=== PATIENT | female | born 1955 | race Caucasian/White ===

== ENCOUNTER 2019-06-15 15:51 | Emergency (ER) | payer OTHER ==
--- OUTSIDE RECORDS SUMMARY | 2019-06-15 15:53 | XMS REPORT ---
:1955 [facility] Address [address] [place] [address] Dr. Casanova. [address] [place] [id number] Care Team Providers Name Role Phone Unavailable Unavailable Unavailable Problems This patient has no known problems. Allergies, Adverse Reactions, Alerts This patient has no known allergies or adverse reactions. Medications This patient has no known medications.
[2019-06-15] MEDS ORDERED: ACETAMINOPHEN 500 MG TAB ONE (16:25)
[2019-06-15 16:37] LABS: Protime INR 0.96
[2019-06-15 16:40] LABS: Absolute Lymphocytes (CBC) 0.8 K/uL (0.7-4.9); Basophils % 0.2 % (0-1.3); Hematocrit 38.1 % (36.0-45.0); Lymphocytes % 8.4 % (15.3-44.8); MPV 7.5 fL (7.6-11.3); RBC Red Blood Cell Count 3.93 M/uL (3.86-4.86)
[2019-06-15 16:49] LABS: ALT/SGPT 22 U/L (12-78); AST/SGOT 16 U/L (15-37); Albumin 3.2 g/dL (3.4-5.0); Alkaline Phosphatase 72 U/L (45-117); BUN Blood Urea Nitrogen 33 mg/dL (7-18); Bicarbonate 27 mmol/L (21-32); Bilirubin Direct < 0.1 mg/dL (0-0.2); Bilirubin Total 0.3 mg/dL (0.2-1.0); Glucose Level 95 mg/dL (74-106); Magnesium 1.8 mg/dL (1.8-2.4); NT PRO-BNP 1121 pg/mL (<125); Potassium 4.4 mmol/L (3.5-5.1); Protein, Total 6.2 g/dL (6.4-8.2); Sodium Level 138 mmol/L (136-145); Troponin (Emerg Dept Use Only) < 0.02 ng/mL (0.0-0.045)
--- NOTE | 2019-06-15 16:55 | RAD REPORT ---
EXAM DESCRIPTION: RAD - Chest Single View - 06/15/2019 4:46 pm CLINICAL HISTORY: Shortness of breath COMPARISON: April 30 TECHNIQUE: AP portable chest image was obtained 1631 hours . FINDINGS: Lungs are clear. Heart and vasculature are normal. No pneumothorax seen. New pleural effus ion suspected. Patient has left-sided pericardial fat pad. Left costophrenic angle blunting is simila r to the comparison. Pleural effusion is doubtful. This can be monitored on follow-up imaging with CT chest imaging if the patient remains symptomatic. No acute bony abnormality seen. No acute aortic fi ndings suspected. IMPRESSION: Shallow inspiration film without acute cardiopulmonary finding. Left costophrenic angle blunting is favored to be pericardial fat.
--- NOTE | 2019-06-15 18:12 | RAD REPORT ---
EXAM DESCRIPTION: CT - Head Brain Wo Cont - 06/15/2019 5:47 pm CLINICAL HISTORY: Dizziness, syncope COMPARISON: None. TECHNIQUE: Axial 5 mm thick images of the head were obtained without IV contrast. All CT scans are performed using dose optimization technique as appropriate and may include automated exposure control or mA/KV adjustment according to patient size. FINDINGS: No intracranial hemorrhage, mass, edema or shift of mid-line structures. No acute infarcti on changes seen. No abnormal extra-axial fluid collections. Ventricles are normal. No significant atr ophy. Chronic ischemic changes are minimal. Mastoid air cells and visualized portions of the paranasal sinuses are clear. No acute bony findings. IMPRESSION: No significant atrophy. Minimal chronic ischemic change. No acute intracranial finding seen.
[2019-06-15] MEDS ORDERED: NA CHLORIDE 0.9% 1,000 ML ONE (18:14)
--- NOTE | 2019-06-15 18:22 | RAD REPORT ---
EXAM DESCRIPTION: CT - Chest For Pe Angio - 06/15/2019 5:55 pm CLINICAL HISTORY: Cough;Dyspnea COMPARISON: Chest Single View dated 06/15/2019 TECHNIQUE: Dynamically enhanced 3 mm thick images of the chest were obtained during administration o f approximately 150mL Isovue 370 IV contrast. Coronal and oblique MIP reconstruction images were gene rated and reviewed. Exam utilizes a protocol to evaluate the pulmonary arterial tree. All CT scans are performed using dose optimization technique as appropriate and may include automated exposure control or mA/KV adjustment according to patient size. FINDINGS: No pulmonary emboli are identified. The aorta as imaged shows no acute or suspicious finding. No pericardial thickening or effusion. A 4- 5 centimeter masslike consolidation is present in the medial posterior left lung base. This exte nds to the hilum. There is bronchial obstruction or occlusion and no air bronchograms seen. No pleura l effusion or pleural thickening. No mediastinal mass or lymphadenopathy. Contralateral right hilum is unremarkable. No chest wall mass es or abnormal axillary lymphadenopathy. IMPRESSION: No pulmonary emboli identified. Masslike consolidation in the medial posterior left lung base may be pneumonia with volume loss. Costa johny, malignant mass is not excluded. Correlation is needed with any pneumonia clinical or exam findings. Continued close follow-up is need ed to assure complete clearing. This area is difficult to follow on plain film. A repeat CT chest exa mination in 4 - 6 weeks recommended after medical management.
--- NOTE | 2019-06-15 19:46 | ER ---
Nurse's Notes [facility] Name: Nia Ortiz Age: 64 yrs Sex: Female : 1955 Arrival Date: 06/15/2019 Time: 15:54 Bed 4 Private MD: Diagnosis: Dizziness and giddiness;Headache Presentation: 06/15 15:55 Presenting complaint: Patient states: dizziness and SOB. Pt states "I have a growth in aa5 my lungs and I have Pneumonia around it and I am supposed to take antibiotics for 48 days and I am on my last week of antibiotics and steroids". Pt reports headache and chest pain. Transition of care: patient was not received from another setting of care. Onset of symptoms was June 15, 2019. Risk Assessment: Do you want to hurt yourself or someone else? Patient reports no desire to harm self or others. Care prior to arrival: None. 15:55 Acuity: ENIO 3 aa5 15:55 Method Of Arrival: Wheelchair aa 15:57 Initial Sepsis Screen: Does the patient meet any 2 criteria? No. Patient's initial aa5 sepsis screen is negative. Does the patient have a suspected source of infection? No. Patient's initial sepsis screen is negative. 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 - Social history:: Smoking status: Patient/guardian denies using tobacco. - Ebola Screening: : No symptoms or risks identified at this time. Screenin:10 Abuse screen: Denies threats or abuse. Denies injuries from another. Nutritional sg screening: No deficits noted. Tuberculosis screening: No symptoms or risk factors identified. Never had TB. Fall Risk None identified. Assessment: 16:00 General: Appears in no apparent distress. well groomed, well developed, well nourished, sg Behavior is calm, cooperative, appropriate for age. Pain: Denies pain. Neuro: Level of Consciousness is awake, alert, obeys commands, Oriented to person, place, time, situation. Neuro: Reports dizziness, that has resolved today. Cardiovascular: Heart tones S1 S2 present Capillary refill is brisk in bilateral fingers Patient's skin is warm and dry. Chest pain is denied. Respiratory: Reports shortness of breath at rest on exertion Airway is patent Respiratory effort is even, unlabored. GI: Abdomen is round non-distended. : No signs and/or symptoms were reported regarding the genitourinary system. EENT: No signs and/or symptoms were reported regarding the EENT system. Derm: Skin is pink, warm \\T\\ dry. Musculoskeletal: Circulation, motion, and sensation intact. Range of motion: intact in all extremities. 16:31 Reassessment: Patient appears in no apparent distress at this time. Patient and/or sg family updated on plan of care and expected duration. Pain level reassessed. 19:45 General: Appears in no apparent distress. Behavior is calm, cooperative, appropriate lp1 for age. Pain: Denies pain. Neuro: Level of Consciousness is awake, alert, obeys commands, Oriented to person, place, time, situation, Operations Analyst are equal bilaterally Moves all extremities. Full function Pupils are PERRLA, Reports dizziness, when standing. Cardiovascular: Patient's skin is warm and dry. Rhythm is sinus bradycardia. Respiratory: Reports shortness of breath on exertion Respiratory effort is even, unlabored, Breath sounds are clear bilaterally. Onset: The symptoms/episode began/occurred yesterday, the patient has mild shortness of breath. : urostomy in place. Derm: Skin is pink, warm \\T\\ dry. Derm: Skin is pink, warm \\T\\ dry. 20:45 Reassessment: Patient appears in no apparent distress at this time. Patient is alert, lp1 oriented x 3, equal unlabored respirations, skin warm/dry/pink. Patient and aware of pending transfer. 21:11 Reassessment: Report given to MEGHAN Raya at [facility] for patient transfer to Bed lp1 1035. 21:56 Reassessment: [facility] at bedside for transfer. lp1 22:01 Reassessment: Patient appears in no apparent distress at this time. Patient states lp1 relief of dizziness Patient denies pain at this time. Patient states feeling better. Patient states symptoms have improved. Vital Signs: 15:57 BP 163 / 74; Pulse 71; Resp 20 S; Temp 98.4(O); Pulse Ox 94% on R/A; Weight 83.01 kg aa5 (R); Height 5 ft. 6 in. (167.64 cm) (R); 19:45 BP 129 / 69; Pulse 54; Resp 17; Pulse Ox 94% on R/A; Pain 0/10; lp1 20:30 BP 134 / 68; Pulse 54; Resp 18; Pulse Ox 95% on R/A; Pain 0/10; lp1 21:45 BP 142 / 72; Pulse 53; Resp 17; Pulse Ox 95% on R/A; Pain 0/10; lp1 15:57 Body Mass Index 29.54 (83.01 kg, 167.64 cm) aa5 NIH Stroke Scale Scores: 19:39 NIHSS Score: 0 [facility] ED Course: 15:54 Patient arrived in ED. aa5 15:54 Arm band placed on. aa5 15:56 Triage completed. aa5 16:00 Initial lab(s) drawn, by va, sent to lab. Inserted saline lock: 22 gauge in right sg antecubital area, using aseptic technique. Blood collected. 16:02 Nate Wilkins, MEGHAN is Primary Nurse. 16:02 Meek Christensen MD is Attending Physician. [facility] 16:08 EKG done, by ED staff, reviewed by Meek Christensen MD. aa5 16:13 Radiology exam delayed due to lab results not completed at this time. (BUN/Creatinine) nj IV insertion attempt and/or patient not having appropriate IV at this time. 17:55 IV discontinued, intact, No redness/swelling at site. IV reported to be infiltrated in sg CT at this time, will establish new access. 18:00 Inserted saline lock: 22 gauge in right antecubital area, using aseptic technique. 19:23 Attending Physician role handed off by Meek Christensen MD [facility] 19:23 Larry Pickett MD is Attending Physician. siena 19:45 Patient has correct armband on for positive identification. Placed in gown. Bed in low lp1 position. cafeteria monitor on. Pulse ox on. NIBP on. 21:06 No provider procedures requiring assistance completed. lp1 Administered Medications: 16:28 Drug: Tylenol 1000 mg Route: PO; sg 17:15 Follow up: Response: No adverse reaction sg 18:04 Drug: NS 0.9% 1000 ml Route: IV; Rate: 1 bolus; Site: right antecubital; sg 19:30 Follow up: IV Status: Completed infusion; IV Intake: 1000ml lp1 19:56 Drug: foLIC Acid 1 mg Route: IVPB; Site: right antecubital; lp1 20:30 Follow up: IV Status: Completed infusion lp1 19:56 Drug: Aspirin 162 mg Route: PO; lp1 21:00 Follow up: Response: No adverse reaction lp1 20:19 Drug: Meclizine 25 mg Route: PO; lp1 21:30 Follow up: Response: Marked relief of symptoms lp1 Intake: 19:30 IV: 1000ml; Total: 1000ml. lp1 Outcome: 19:46 ER care complete, transfer ordered by . siena 21:06 Condition: stable lp1 21:06 Instructed on the need for transfer. 22:02 Transferred by ground EMS to [facility], Transfer form completed. lp1 X-rays sent w/ patient. 22:02 Patient left the ED. lp1 NIH Stroke Scale - NIH Stroke Score Date: 06/15/2019 Time: 19:39 Total Score = 0 1a. Level of Consciousness (LOC) - 0(Alert) 1b. Level of Consciousness (LOC) (Year \\T\\ Age) - 0(Both) 1c. LOC Commands (Open \\T\\ Closes Eyes/Sleeve Baster) - 0(Both) 2. Best Gaze (Lateral Gaze Paresis) - 0(Normal) 3. Visual Field Loss - 0(No visual loss) 4. Facial Palsy - 0(Normal) 5a. Left Arm: Motor (10-second hold) - 0(No drift) 5b. Right Arm: Motor (10-second hold) - 0(No drift) 6a. Left Leg: Motor (5-second hold - always test supine) - 0(No drift) 6b. Right Leg: Motor (5-second hold - always test supine) - 0(No drift) 7. Limb Ataxia (finger/nose \\T\\ heel/santana - test with eyes open) - 0(Absent) 8. Sensory Loss (pinprick arms/legs/face) - 0(Normal) 9. Best Language: Aphasia (description/naming/reading) - 0(No aphasia) 10. Dysarthria (speech clarity - read or repeat words) - 0(Normal) 11. Extinction and Inattention (visual/tactile/auditory/spatial/personal) - 0(No abnormality) Initials: siena Signatures: Nate Wilkins RN RN Larry Wynn MD MD cha Rittger, Kevin, MD MD kdr Calderon, Audri RN RN aa5 Mariah Ruiz RN RN lp1 Venancio Mcnulty Corrections: (The following items were deleted from the chart) 15:57 15:55 Presenting complaint: Patient states: dizziness and SOB. Pt states "I aa5 have a growth in my lungs and I have Pneumonia around it and I am supposed to take antibiotics for 48 days and I am on my last week of antibiotics and steroids" aa5 21:07 19:45 Respiratory: Respiratory effort is even, unlabored, Breath sounds are lp1 clear bilaterally. lp1 21:07 19:45 Respiratory: Reports shortness of breath on exertion Respiratory effort lp1 is even, unlabored, Breath sounds are clear bilaterally. Onset: The symptoms/episode began/occurred yesterday, lp1
--- NOTE | 2019-06-15 19:47 | EDPHYS ---
Physician Documentation [facility] Name: Nia Ortiz Age: 64 yrs Sex: Female : 1955 Arrival Date: 06/15/2019 Time: 15:54 Bed 4 Private MD: ED Physician Larry Pickett HPI: 06/15 16:13 This 64 yrs old Female presents to ER via Wheelchair with complaints of kdr Dizziness, Shortness Of Breath. 16:13 The patient presents with dizziness, generalized weakness, lightheadedness, feeling off kdr balance. Onset: The symptoms/episode began/occurred gradually, A few days, The cough has been getting progressively worse since the first of the year.. Context: occurred at home, occurred while the patient was at rest. Modifying factors: The symptoms are alleviated by holding head still, the symptoms are aggravated by movement of head, standing up, changing position. Associated signs and symptoms: Pertinent positives: headache, shortness of breath, Pertinent negatives: abdominal pain, ataxia, blurred vision, combativeness, focal weakness, head injury, near-syncope, numbness. Severity of symptoms: At their worst the symptoms were mild moderate just prior to arrival, in the emergency department the symptoms are unchanged. Patient's baseline: Neuro: alert and fully oriented, Motor: no deficits, Ambulation: walks without assistance, Speech: normal, The patient has a previous history of lung mass bladder cancer. 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 - Social history:: Smoking status: Patient/guardian denies using tobacco. - Ebola Screening: : No symptoms or risks identified at this time. ROS: 19:17 Constitutional: Negative for fever, chills, and weight loss, Eyes: Negative for injury, kdr pain, redness, and discharge, Neck: Negative for injury, pain, and swelling, Cardiovascular: Negative for chest pain, palpitations, and edema, Respiratory: Negative for shortness of breath, cough, wheezing, and pleuritic chest pain, Abdomen/GI: Negative for abdominal pain, nausea, vomiting, diarrhea, and constipation, Back: Negative for injury and pain, : Negative for injury, bleeding, discharge, and swelling, MS/Extremity: Negative for injury and deformity, Skin: Negative for injury, rash, and discoloration, Psych: Negative for depression, anxiety, suicide ideation, homicidal ideation, and hallucinations, Allergy/Immunology: Negative for hives, rash, and allergies, Endocrine: Negative for neck swelling, polydipsia, polyuria, polyphagia, and marked weight changes, Hematologic/Lymphatic: Negative for swollen nodes, abnormal bleeding, and unusual bruising. 19:17 Neuro: Positive for dizziness, headache, weakness, Negative for altered mental status, tremor. Exam: 19:17 Constitutional: This is a well developed, well nourished patient who is awake, alert, kdr and in no acute distress. Head/Face: Normocephalic, atraumatic. Eyes: Pupils equal round and reactive to light, extra-ocular motions intact. Lids and lashes normal. Conjunctiva and sclera are non-icteric and not injected. Cornea within normal limits. Periorbital areas with no swelling, redness, or edema. Neck: Trachea midline, no thyromegaly or masses palpated, and no cervical lymphadenopathy. Supple, full range of motion without nuchal rigidity, or vertebral point tenderness. No Meningismus. Chest/axilla: Normal chest wall appearance and motion. Nontender with no deformity. No lesions are appreciated. Cardiovascular: Regular rate and rhythm with a normal S1 and S2. No gallops, murmurs, or rubs. Normal PMI, no JVD. No pulse deficits. Respiratory: Lungs have equal breath sounds bilaterally, clear to auscultation and percussion. No rales, rhonchi or wheezes noted. No increased work of breathing, no retractions or nasal flaring. Abdomen/GI: Soft, non-tender, with normal bowel sounds. No distension or tympany. No guarding or rebound. No evidence of tenderness throughout. Back: No spinal tenderness. No costovertebral tenderness. Full range of motion. Skin: Warm, dry with normal turgor. Normal color with no rashes, no lesions, and no evidence of cellulitis. MS/ Extremity: Pulses equal, no cyanosis. Neurovascular intact. Full, normal range of motion. Psych: Awake, alert, with orientation to person, place and time. Behavior, mood, and affect are within normal limits. 19:17 Neuro: Orientation: is normal, Mentation: is normal, Memory: is normal, Cranial nerves: visual dan are intact. Nystagmus is absent. Cerebellar function: is grossly normal based on the patient's age, Motor: is normal, Sensation: is normal, seizure activity, is not displayed by the patient. 19:39 Musculoskeletal/extremity: DVT Exam: No signs of deep vein thrombosis. no pain, no siena swelling, no tenderness, negative Homans' sign noted on exam, no appreciated bluish discoloration, no erythema, no increased warmth. Vital Signs: 15:57 BP 163 / 74; Pulse 71; Resp 20 S; Temp 98.4(O); Pulse Ox 94% on R/A; Weight 83.01 kg aa5 (R); Height 5 ft. 6 in. (167.64 cm) (R); 19:45 BP 129 / 69; Pulse 54; Resp 17; Pulse Ox 94% on R/A; Pain 0/10; lp1 20:30 BP 134 / 68; Pulse 54; Resp 18; Pulse Ox 95% on R/A; Pain 0/10; lp1 21:45 BP 142 / 72; Pulse 53; Resp 17; Pulse Ox 95% on R/A; Pain 0/10; lp1 15:57 Body Mass Index 29.54 (83.01 kg, 167.64 cm) aa5 NIH Stroke Scale Scores: 19:39 NIHSS Score: 0 siena MDM: 19:17 Data reviewed: vital signs, nurses notes, lab test result(s), EKG, radiologic studies. kdr Counseling: I had a detailed discussion with the patient and/or guardian regarding: the historical points, exam findings, and any diagnostic results supporting the discharge/admit diagnosis, lab results, radiology results, the need to transfer to another facility. 19:24 Patient medically screened. siena 06/15 16:04 Order name: Basic Metabolic Panel [facility] 06/15 16:04 Order name: CBC with Diff [facility] 06/15 16:04 Order name: LFT's [facility] 06/15 16:04 Order name: Magnesium [facility] 06/15 16:04 Order name: NT PRO-BNP [facility] 06/15 16:04 Order name: PT-INR [facility] 06/15 16:04 Order name: Troponin (emerg Dept Use Only) [facility] 06/15 16:39 Order name: Protime (+INR); Complete Time: 17:18 ED[facility] 06/15 16:49 Order name: CBC with Automated Diff [facility] 06/15 16:49 Order name: Basic Metabolic Panel; Complete Time: 17:18 EDNM 06/15 16:49 Order name: Liver (Hepatic) Function; Complete Time: 17:18 EDNM 06/15 16:49 Order name: Troponin (Emerg Dept Use Only); Complete Time: 17:18 EDNM 06/15 16:49 Order name: NT PRO-BNP; Complete Time: 17:18 EDNM 06/15 16:49 Order name: Magnesium; Complete Time: 17:18 [facility] 06/15 16:04 Order name: XRAY Chest (1 view) [facility] 06/15 16:04 Order name: EKG; Complete Time: 16:06 [facility] 06/15 16:04 Order name: Cardiac monitoring; Complete Time: 16:22 [facility] 06/15 16:04 Order name: EKG - Nurse/Tech; Complete Time: 16:22 [facility] 06/15 16:04 Order name: IV Saline Lock; Complete Time: 16:22 [facility] 06/15 16:04 Order name: CT Head Brain wo Cont [facility] 06/15 16:12 Order name: CT Chest For PE Angio [facility] 06/15 16:56 Order name: RAD; Complete Time: 17:18 EDNM 06/15 18:15 Order name: CT; Complete Time: 18:30 EDNM 06/15 18:24 Order name: CT; Complete Time: 18:30 EDNM 06/15 20:37 Order name: Manual Differential [facility] 06/15 16:04 Order name: Labs collected and sent; Complete Time: 16:22 [facility] 06/15 16:04 Order name: O2 Per Protocol; Complete Time: 16:22 [facility] 06/15 16:04 Order name: O2 Sat Monitoring; Complete Time: 16:22 kdr Administered Medications: 16:28 Drug: Tylenol 1000 mg Route: PO; sg 17:15 Follow up: Response: No adverse reaction sg 18:04 Drug: NS 0.9% 1000 ml Route: IV; Rate: 1 bolus; Site: right antecubital; sg 19:30 Follow up: IV Status: Completed infusion; IV Intake: 1000ml lp1 19:56 Drug: foLIC Acid 1 mg Route: IVPB; Site: right antecubital; lp1 20:30 Follow up: IV Status: Completed infusion lp1 19:56 Drug: Aspirin 162 mg Route: PO; lp1 21:00 Follow up: Response: No adverse reaction lp1 20:19 Drug: Meclizine 25 mg Route: PO; lp1 21:30 Follow up: Response: Marked relief of symptoms lp1 Disposition: 06/15/19 19:46 Transfer ordered to [facility]. Diagnosis are Dizziness and giddiness, Headache. - Reason for transfer: Higher level of care. - Accepting physician is to tele, neuro consult. - Condition is Stable. - Problem is new. - Symptoms have improved. NIH Stroke Scale - NIH Stroke Score Date: 06/15/2019 Time: 19:39 Total Score = 0 1a. Level of Consciousness (LOC) - 0(Alert) 1b. Level of Consciousness (LOC) (Year \T\ Age) - 0(Both) 1c. LOC Commands (Open \T\ Closes Eyes/Aircraft Sheet Metal Mechanic) - 0(Both) 2. Best Gaze (Lateral Gaze Paresis) - 0(Normal) 3. Visual Field Loss - 0(No visual loss) 4. Facial Palsy - 0(Normal) 5a. Left Arm: Motor (10-second hold) - 0(No drift) 5b. Right Arm: Motor (10-second hold) - 0(No drift) 6a. Left Leg: Motor (5-second hold - always test supine) - 0(No drift) 6b. Right Leg: Motor (5-second hold - always test supine) - 0(No drift) 7. Limb Ataxia (finger/nose \T\ heel/santana - test with eyes open) - 0(Absent) 8. Sensory Loss (pinprick arms/legs/face) - 0(Normal) 9. Best Language: Aphasia (description/naming/reading) - 0(No aphasia) 10. Dysarthria (speech clarity - read or repeat words) - 0(Normal) 11. Extinction and Inattention (visual/tactile/auditory/spatial/personal) - 0(No abnormality) Initials: siena Signatures: Dispatcher [employer] EDMS Nate Wilkins, RN RN Larry Wynn MD MD cha Rittger, Kevin, MD MD kdr Calderon, Audri RN RN aa5 Mariah Ruiz RN RN lp1 Corrections: (The following items were deleted from the chart) 22:02 19:46 06/15/2019 19:46 Transfer ordered to [facility]. lp1 Diagnosis is Dizziness and giddiness; Headache. Reason for transfer: Higher level of care. Accepting physician is to tele, neuro consult. Condition is Stable. Problem is new. Symptoms have improved. siena
[2019-06-15] MEDS ORDERED: FOLIC ACID 5 MG/ML VIAL ONE (19:50)
[2019-06-15] MEDS ORDERED: ASPIRIN 81 MG CHEWABLE TABLET ONE (19:50)
[2019-06-15] MEDS ORDERED: NA CHLORIDE 0.9% 50 ML IV ONE (19:51)
[2019-06-15] MEDS ORDERED: MECLIZINE HCL 12.5 MG TAB ONE (20:15)
[2019-06-15 20:36] LABS: Blood Morphology Comment NOT SEEN (NOT SEEN); Platelet Estimate ADEQ
[2019-06-16 03:45] VITALS: TEMP 98.4
[2019-06-16 03:48] VITALS: O2SAT 95
[2019-06-16 03:49] VITALS: BP 142/72
--- NOTE | 2019-06-16 08:25 | EKG ---
Test Date: 2019-06-15 Test Time: 16:14:51 Scroll Shear Operator: JOVANT MEASUREMENT RESULTS: Intervals: Rate: 60 MA: 214 QRSD: 96 QT: 430 QTc: 430 [place]: P: 62 MA: 214 QRS: -25 T: 34 INTERPRETIVE STATEMENTS: Sinus rhythm with 1st degree AV block Otherwise normal ECG Compared to ECG 11/04/2004 09:26:00 First degree AV block now present Sinus bradycardia no longer present Electronically Signed On 06-16-19 08:24:41 CAN RUNNER by Nelson De Anda
== END 2019-06-15 22:02 | disposition short-term general hospital (02) ==
LOC: ER 15:51
DX: R51 Headache (principal); E07.9 Disorder of thyroid, unspecified; Z85.51 Personal history of malignant neoplasm of bladder
CPT/HCPCS: 96365; 96361; 93005; 85025; 80048; 36415; 83735; 85610; 80076; 84484; 83880; 70450; 71275; 71045; 99285; Q9967; J8597; J7030

== ENCOUNTER 2019-09-26 18:40 | Inpatient (IN) | payer OTHER ==
--- OUTSIDE RECORDS SUMMARY | 2019-09-26 18:43 | XMS REPORT ---
:1955 Author Organization [facility] Address [address] [place] [address] Care Team Providers Name Role Phone MANSIHA BURKS Unavailable Unavailable Problems This patient has no known problems. Allergies, Adverse Reactions, Alerts This patient has no known allergies or adverse reactions. Medications This patient has no known medications. Results Test Description Test Time Test Comments Text Results Atomic Results Result Comments RPR 2019-06-17 04:27:00 Test Item Value Reference Range Comments RPR SCREEN (SHAHEEN) (test xqbe=894) Nonreactive Nonreactive MR, MRA, BRAIN, WITHOUT [id number] 15:00:00Reason for exam:-> Ischemic Stroke EvaluationFINAL REPORT MR, BRAIN, WITHOUT CONTRAST, MR, MRA, BRAIN, WITHOUT CONTRAST, MR, MRA, NECK, WITHOUT IV CONTRAST INDICATION: Stroke, follow upIschemic Stroke Evaluation TECHNIQUE: Multiplanar, multisequence MR imaging of the brain without intravenous contrast.MRA of the head utilizing 3-D wqch-lb-rpkhgr technique, with 3-D reconstructions.MRA of the neck utilizing 2-D and 3-D tuew-kx-zjesna technique, with 3-D reconstructions. COMPARISON: None FINDINGS: MRI Brain:Intracranial: Afew foci of T2 prolongation within the periventricular and subcortical white matter are a nonspecific finding commonly attributed to chronic small vessel ischemic disease. No intracranial hemorrhage. No restricted diffusion to suggest acute infarct. No mass effect. No hydrocephalus. Sinuses: No evidence of sinusitis. Mastoids are clear. Orbits: Globes are intact. Calvarium \T\ scalp : Unremarkable. MRA Head:There is no evidence of intracranial aneurysm, focal stenosis, or major branch vessel occlusion. MRA Neck:The carotid arteries in the neck are patent including their bifurcations. There is antegrade flow in the vertebral arteries in the neck. IMPRESSION:No acute infarct or hemorrhage.No arterial occlusion or high-grade stenosis. Signed: Lauren Ortiz Verified Date/Time: 06/16/2019 15:00:22 MR, MRA, NECK, WITHOUT IV [id number] 15:00:00Reason for exam:->Ischemic Stroke EvaluationFINAL REPORT MR, BRAIN, WITHOUT CONTRAST, MR, MRA, BRAIN, WITHOUT CONTRAST, MR, MRA, NECK, WITHOUT IV CONTRAST INDICATION: Stroke, follow upIschemic Stroke Evaluation TECHNIQUE: Multiplanar, multisequence MR imaging of the brain without intravenous contrast.MRA of the head utilizing 3-D time-of- flight technique, with 3-D reconstructions.MRA of the neck utilizing 2-D and 3- D gprt-ic-fgwaky technique, with 3-D reconstructions. COMPARISON: None FINDINGS : MRI Brain:Intracranial: Afew foci of T2 prolongation within the periventricular and subcortical white matter are a nonspecific finding commonly attributed to chronic small vessel ischemic disease. No intracranial hemorrhage. No restricted diffusion to suggest acute infarct. No mass effect. No hydrocephalus. Sinuses: No evidence of sinusitis. Mastoids are clear. Orbits : Globes are intact. Calvarium \T\ scalp: Unremarkable. MRA Head:There is no evidence of intracranial aneurysm, focal stenosis, or major branch vessel occlusion. MRA Neck:The carotid arteries in the neck are patent including their bifurcations. There is antegrade flow in the vertebral arteries in the neck. IMPRESSION:No acute infarct or hemorrhage.No arterial occlusion or high-grade stenosis. Signed: Lauren Ortiz Verified Date/Time: 06/16/2019 15:00: 22 MR, BRAIN, WITHOUT [id number] 15:00:00Reason for exam:->Ischemic Stroke EvaluationFINAL REPORT MR, BRAIN, WITHOUT CONTRAST , MR, MRA, BRAIN, WITHOUT CONTRAST, MR, MRA, NECK, WITHOUT IV CONTRAST INDICATION: Stroke, follow upIschemic Stroke Evaluation TECHNIQUE: Multiplanar, multisequence MR imaging of the brain without intravenous contrast.MRA of the head utilizing 3-D kiil-oq-lfqlje technique, with 3-D reconstructions.MRA of the neck utilizing 2-D and 3-D fzki-pr-spuraj technique, with 3-D reconstructions. COMPARISON: None FINDINGS: MRI Brain:Intracranial: Afew foci of T2 prolongation within the periventricular and subcortical white matter are a nonspecific finding commonly attributed to chronic small vessel ischemic disease. No intracranial hemorrhage. No restricted diffusion to suggest acute infarct. No mass effect. No hydrocephalus. Sinuses: No evidence of sinusitis. Mastoids are clear. Orbits: Globes are intact. Calvarium \T\ scalp: Unremarkable. MRA Head:There is no evidence of intracranial aneurysm, focal stenosis, or major branch vessel occlusion. MRA Neck:The carotid arteries in the neck are patent including their bifurcations. There is antegrade flow in the vertebral arteries in the neck. IMPRESSION:No acute infarct or hemorrhage.No arterial occlusion or high-grade stenosis. Signed: Lauren Ortiz [facility] Verified Date/Time: 06/16/2019 15:00:22 VITAMIN B12 AND [id number] 07:16:00 Test Item Value Reference Range Comments VITAMIN B12 (BEAKER) (test wqsw=520) 223 pg/mL 213-816 FOLATE (BEAKER) (test wazf=377) > ng/mL >=7.0 [id number] 05:55:00 Test Item Value Reference Range Comments HOMOCYSTEINE (BEAKER) (test hyzq=964) 13.5 umol/L 5.1-15.4 FastingT4, [id number] 05:53:00 Test Item Value Reference Range Comments FREE T4 (BEAKER) (test wrgq=649) 0.87 ng/dL 0.70-1.48 FastingTSH/FREE T4 IF [id number] 03:09:00 Test Item Value Reference Range Comments THYROID STIMULATING HORMONE (BEAKER) (test 0.16 uIU/mL 0.35-4.94 ywxn=186) FastingHIV-1 ANTIGEN WITH HIV-1/2 [id number] 02:55:00 Test Item Value Reference Range Comments HIV-1 ANTIGEN WITH HIV 1\T\2 ANTIBODY (2) Nonreactive Nonreactive (BEAKER) (test errp=3650) FastingPT/[id number] 02:52:00 Test Item Value Reference Range Comments PROTIME (BEAKER) (test ostf=392) 13.4 seconds 11.9-14.2 INR (BEAKER) (test ndiu=563) 1.1 <=5.9 PARTIAL THROMBOPLASTIN TIME (BEAKER) (test 30.3 seconds 22.5-36.0 tuwd=654) Effective 12/13/2018: PT Reference Range ChangeNew: 11.9-14.2 Previous: 11.7- 14.7RECOMMENDED COUMADIN/WARFARIN INR THERAPY RANGESSTANDARD DOSE: 2.0-3.0 Includes: PROPHYLAXIS for venous thrombosis, systemic embolization; TREATMENT for venous thrombosis and/or pulmonary embolus.HIGH RISK: Target INR is2.5-3.5 for patients wiht mechanical heart valves.C-REACTIVE [id number] 02:42:00 Test Item Value Reference Range Comments C-REACTIVE PROTEIN (BEAKER) (test jfbz=135) 0.78 mg/dL 0.00-0.50 FastingTROPONIN [id number] 02:40:00 Test Item Value Reference Range Comments TROPONIN I (BEAKER) (test okme=902) < ng/mL 0.00-0.03 Troponin I (TnI) levels must be interpreted in the context of the presenting symptoms and the clinical findings. Elevated TnI levels indicate myocardial damage, but are not specific for ischemic heart disease. Elevated TnI levels are seen in patients with other cardiac conditions (including myocarditis and congestive heart failure), and slight TnI elevations occur in patients with other conditions, including sepsis, renal failure, acidosis, acute neurological disease, and persistent tachyarrhythmia.[id number] 02:34:00 Test Item Value Reference Range Comments MAGNESIUM (BEAKER) (test qias=398) 1.8 mg/dL 1.6-2.6 FastingLIPID [id number] 02:34:00 Test Item Value Reference Range Comments TRIGLYCERIDES (BEAKER) (test kdtp=209) 83 mg/dL CHOLESTEROL (BEAKER) (test sdll=040) 262 mg/dL HDL CHOLESTEROL (BEAKER) (test euex=177) 86 mg/dL LDL CHOLESTEROL CALCULATED (BEAKER) (test 159 mg/dL khcz=145) Triglyceride Reference Range: Low Risk <150 Borderline 150- 199 High Risk 200-499 Very High Risk >=500Cholesterol Reference Range: Low Risk <200 Borderline 200-239 High Risk > 240HDL Cholesterol Reference Range: Low Risk >=60 High Risk <40LDL Cholesterol Reference Range: Optimal <100 Near Optimal 100-129 Borderline 130-159 High 160-189 Very High >=190 FastingHEPATIC FUNCTION [id number] 02:34:00 Test Item Value Reference Range Comments TOTAL PROTEIN (BEAKER) (test snuw=997) 5.5 gm/dL 6.0-8.3 ALBUMIN (BEAKER) (test cnsh=6299) 3.3 g/dL 3.5-5.0 BILIRUBIN TOTAL (BEAKER) (test kkuw=344) 0.4 mg/dL 0.2-1.2 BILIRUBIN DIRECT (BEAKER) (test hbfl=275) 0.2 mg/dL 0.1-0.5 ALKALINE PHOSPHATASE (BEAKER) (test xkcg=111) 60 U/L 40-150 AST (SGOT) (BEAKER) (test wgzq=091) 11 U/L 5-34 ALT (SGPT) (BEAKER) (test synu=859) 13 U/L 6-55 FastingCOMPREHENSIVE METABOLIC [id number] 02:34:00 Test Item Value Reference Range Comments TOTAL PROTEIN (BEAKER) 5.5 gm/dL 6.0-8.3 (test zgwk=633) ALBUMIN (BEAKER) (test 3.3 g/dL 3.5-5.0 dhmu=9088) ALKALINE PHOSPHATASE 60 U/L 40-150 (BEAKER) (test yjly=418) BILIRUBIN TOTAL (BEAKER) 0.4 mg/dL 0.2-1.2 (test wirk=316) SODIUM (BEAKER) (test 136 meq/L 136-145 bcyf=444) POTASSIUM (BEAKER) (test 4.3 meq/L 3.5-5.1 dfca=992) CHLORIDE (BEAKER) (test 104 meq/L 98-107 pybm=664) CO2 (BEAKER) (test 25 meq/L 22-29 dtmo=885) BLOOD UREA NITROGEN 27 mg/dL 7-21 (BEAKER) (test vsma=191) CREATININE (BEAKER) (test 1.30 mg/dL 0.57-1.25 cxnw=573) GLUCOSE RANDOM (BEAKER) 105 mg/dL 70-105 (test zjqf=455) CALCIUM (BEAKER) (test 8.7 mg/dL 8.4-10.2 bmfb=698) AST (SGOT) (BEAKER) (test 11 U/L 5-34 xvlj=724) ALT (SGPT) (BEAKER) (test 13 U/L 6-55 igdl=619) EGFR (BEAKER) (test 41 mL/min/1.73 sq m ESTIMATED GFR IS NOT yndv=1907) ACCURATE CREATININE CLEARANCE IN PREDICTING GLOMERULAR FILTRATION RATE. ESTIMATED GFR IS NOT APPLICABLE FOR DIALYSIS PATIENTS. FastingCBC W/PLT COUNT & AUTO [id number] 02:17:00 Test Item Value Reference Range Comments WHITE BLOOD CELL COUNT (BEAKER) (test rerz=712) 7.4 K/ L 3.5-10.5 RED BLOOD CELL COUNT (BEAKER) (test edbk=475) 3.53 M/ L 3.93-5.22 HEMOGLOBIN (BEAKER) (test qixw=439) 11.5 GM/DL 11.2-15.7 HEMATOCRIT (BEAKER) (test yqry=811) 34.7 % 34.1-44.9 MEAN CORPUSCULAR VOLUME (BEAKER) (test sxes=708) 98.3 fL 79.4-94.8 MEAN CORPUSCULAR HEMOGLOBIN (BEAKER) (test 32.6 pg 25.6-32.2 xgjp=593) MEAN CORPUSCULAR HEMOGLOBIN CONC (BEAKER) (test 33.1 GM/DL 32.2-35.5 yrwd=810) RED CELL DISTRIBUTION WIDTH (BEAKER) (test 13.8 % 11.7-14.4 yanf=973) PLATELET COUNT (BEAKER) (test tlqu=979) 143 K/CU MM 150-450 MEAN PLATELET VOLUME (BEAKER) (test wdev=172) 9.5 fL 9.4-12.3 NUCLEATED RED BLOOD CELLS (BEAKER) (test 0 /100 WBC 0-0 nljf=921) NEUTROPHILS RELATIVE PERCENT (BEAKER) (test 81 % tcxe=665) LYMPHOCYTES RELATIVE PERCENT (BEAKER) (test 11 % vcjw=331) MONOCYTES RELATIVE PERCENT (BEAKER) (test 5 % xioq=707) EOSINOPHILS RELATIVE PERCENT (BEAKER) (test 0 % sfbd=813) BASOPHILS RELATIVE PERCENT (BEAKER) (test 0 % nwle=508) NEUTROPHILS ABSOLUTE COUNT (BEAKER) (test 5.99 K/ L 1.56-6.13 rpud=266) LYMPHOCYTES ABSOLUTE COUNT (BEAKER) (test 0.84 K/ L 1.18-3.74 tkqe=606) MONOCYTES ABSOLUTE COUNT (BEAKER) (test 0.40 K/ L 0.24-0.36 hgnc=042) EOSINOPHILS ABSOLUTE COUNT (BEAKER) (test 0.00 K/ L 0.04-0.36 hhef=884) BASOPHILS ABSOLUTE COUNT (BEAKER) (test 0.01 K/ L 0.01-0.08 adnb=112) IMMATURE GRANULOCYTES-RELATIVE PERCENT (BEAKER) 2 % 0-1 (test vrgh=2094)
[2019-09-26 19:39] VITALS: BMI 30.5
[2019-09-26 20:04] LABS: Absolute Lymphocytes (CBC) 0.7 K/uL (0.7-4.9); Basophils % 0.5 % (0-1.3); Hematocrit 35.5 % (36.0-45.0); Lymphocytes % 17.1 % (15.3-44.8); MPV 8.1 fL (7.6-11.3); RBC Red Blood Cell Count 3.69 M/uL (3.86-4.86)
[2019-09-26 20:27] LABS: Blood Morphology Comment NOT SEEN (NOT SEEN); Platelet Estimate ADEQ
[2019-09-26 20:29] LABS: Albumin 3.3 g/dL (3.4-5.0); Bilirubin Total 0.5 mg/dL (0.2-1.0); Magnesium 1.9 mg/dL (1.8-2.4); Potassium 4.3 mmol/L (3.5-5.1); Protein, Total 6.6 g/dL (6.4-8.2); Thyroid Stimulating Hormone 0.369 uIU/mL (0.360-3.740)
[2019-09-26] MEDS: NA CHLORIDE 0.9% 1,000 ML IV SCH (20:30)
[2019-09-26] MEDS ORDERED: PANTOPRAZOLE 40 MG INJ ONE (21:42)
[2019-09-26] MEDS ORDERED: NA CHLORIDE 0.9% 250 ML ONE (21:43)
[2019-09-26] MEDS ORDERED: BENZONATATE 100 MG CAP PO PRN (22:37)
[2019-09-26] MEDS: PANTOPRAZOLE INJ 80 MG in NA CHLORIDE 0.9% 250 ML IV SCH (23:02)
[2019-09-26] MEDS: ONDANSETRON 4 MG/2 ML VIAL IV PRN (23:20)
[2019-09-27] MEDS: ONDANSETRON 4 MG/2 ML VIAL IV PRN (04:25)
--- NOTE | 2019-09-27 04:30 | HP ---
Date of Admission: 09/26/2019 Chief Complaint: Nausea, vomiting, feeling weak. History Of Present Illness: This is a pleasant 64-year-old female patient who came into office today with her with above-mentioned complaints and problems. 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 She reported that she had surgery for removal of left lung mass on July 31, 2019 and it turned out to be metastasis from bladder cancer. During this surgery, she was also noted to have some metastatic disease and on the heart. As best as I can understand from talking to her and her , there was no evidence of any pericardial effusion or no pericardiocentesis type of procedure done. She also received radiation therapy some days and she completed this radiation therapy yesterday. As of last week on Tuesday, she started to have nausea, vomiting after eating, drinking anything and she has pain at the time of swallowing. She was given lidocaine viscous type of liquid along with pantoprazole nausea medication per [facility] and she takes all her medications as prescribed, but still continues to have this problem. She is not able to drink anything for last couple of days and had only approximately 8-10 ounce of water in all day today and very small amount of yogurt today. She feels very weak. She has urostomy bag on her anterior abdominal wall and her urine output has reduced at least by 50% or more in last 48 hours as she describes and her urine is darker than usual. After she was evaluated, she was admitted to the hospital for further evaluation and management of this volume depletion problem. Allergies: TO CODEINE CAUSING ITCHING AND IODINE CAUSING RASH. Medications: List reviewed. Review of Systems: Constitutional: As mentioned above. GI: As mentioned above. All other systems reviewed and negative. Past Medical History: Allergic rhinitis, hypothyroidism, asthma, hypertension, hyperlipidemia, bladder cancer with metastatic disease to lung and bone, superficial thrombophlebitis of arm involving left cephalic vein, February 2018. Past Surgical History: Significant for surgery for bladder cancer during which time she had removal of her bladder, uterus and ovary and has a urostomy bag and this surgery was done on May 05, 2018. Family History: Father had colon cancer, diabetes. Mother, asthma and heart disease. Social History: Negative for smoking. Use of alcohol, occasional. Physical Examination: Vital Signs: When I saw her at office today, blood pressure 127/85, pulse 67, temperature 97.5, respiratory rate 15. Weight 191.4 pounds, height 66 inches. General: Patient appears weaker than normal, not in any distress. HEENT: Head atraumatic, normocephalic. Conjunctivae nonerythematous. Sclerae white. Mouth, no thrush or edema noted. Ears/Nose, no mass, lesion, discharge noted. Neck: Supple. No JVD, lymph nodes, bruit, thyromegaly noted. Lungs: Bilateral good equal air entry. Clear to auscultation. No rhonchi. No rales. Heart: Normal heart sounds, no murmur or gallop. Abdomen: Shows presence of urostomy bag, otherwise abdomen soft. Bowel sounds normal. No guarding, rigidity, tenderness, or distention. Extremities: No leg edema. No calf tenderness. Skin: No rash, ulcer, cellulitis. Lymphatics: No lymph node enlargement in neck, supraclavicular, infraclavicular region. Neuro: No focal neurological deficit. Chest: Unremarkable. External Genitalia: Deferred. Rectal: Deferred. Laboratory Data: WBC 4.1, hemoglobin 12, platelets 162, sodium 139, potassium 4.3, chloride 105, bicarb 27, glucose 99, BUN 25, creatinine 1.22, liver function test normal. Impression: 1. Volume depletion. 2. Bladder cancer with metastatic disease to lung and bone. 3. Esophagitis, radiation induced. 4. Hyperlipidemia. 5. Hypothyroidism. 6. Hypertension. Plan: Admit patient to hospital for further evaluation and management of this problem. Patient is appropriate for inpatient and is expected to spend 2 midnights in hospital. Home medications will be continued per order. We will go ahead and start her on IV fluid, monitor electrolytes, renal function and her urine output and clear liquid diet was ordered. I will see her tomorrow for followup. IV Protonix was started as patient probably has significant esophagitis from recent radiation therapy. Details and plan of treatment discussed with her and her . Patient has appointment to go back to [facility] this week on Tuesday. MARTINA/MODL Voice ID: [id number] MTDD
[2019-09-27] MEDS: NA CHLORIDE 0.9% 1,000 ML IV SCH ×3 (05:14→23:05)
[2019-09-27] MEDS: PANTOPRAZOLE INJ 80 MG in NA CHLORIDE 0.9% 250 ML IV SCH ×3 (06:00→18:59)
[2019-09-27] MEDS: PROPAFENONE 225 MG PO SCH ×2 (09:00→20:42)
[2019-09-27] MEDS: LEVOTHYROXINE SODIUM 100 MCG PO SCH (09:00)
[2019-09-27] MEDS: LIOTHYRONINE SODIUM 5 MCG PO SCH (09:00)
[2019-09-27] MEDS ORDERED: INFLUENZA VACCINE (for 3y+) 0.5 ML DOSE IMVAC ONE (09:00)
[2019-09-27] MEDS: Metoprolol Succinate (Toprol Xl) 25 MG TABLETS PO SCH (09:00)
[2019-09-27] MEDS: ENOXAPARIN 40 MG/0.4 ML SQ SCH (10:27)
[2019-09-27] MEDS: [UNRECOGNIZED DRUG - OTHER] PO SCH ×3 (14:30→20:44)
[2019-09-27] MEDS: ROSUVASTATIN 10 MG PO SCH (18:55)
[2019-09-27] MEDS: HYDROCODONE PO PRN (20:43)
[2019-09-27] MEDS: APAP PO PRN (20:43)
[2019-09-28] MEDS: NA CHLORIDE 0.9% 1,000 ML IV SCH ×2 (02:00→08:49)
[2019-09-28] MEDS: PANTOPRAZOLE INJ 80 MG in NA CHLORIDE 0.9% 250 ML IV SCH ×2 (04:06→14:00)
[2019-09-28] MEDS: ONDANSETRON 4 MG/2 ML VIAL IV PRN ×2 (04:28→08:35)
[2019-09-28] MEDS: APAP PO PRN ×2 (04:34→08:45)
[2019-09-28] MEDS: HYDROCODONE PO PRN ×2 (04:34→08:45)
[2019-09-28] MEDS: [UNRECOGNIZED DRUG - OTHER] PO SCH ×2 (07:30→11:30)
[2019-09-28] MEDS: ENOXAPARIN 40 MG/0.4 ML SQ SCH (08:45)
[2019-09-28] MEDS: PROPAFENONE 225 MG PO SCH (08:46)
[2019-09-28] MEDS: Metoprolol Succinate (Toprol Xl) 25 MG TABLETS PO SCH (08:46)
[2019-09-28] MEDS: ROSUVASTATIN 10 MG PO SCH (08:47)
[2019-09-28] MEDS: LEVOTHYROXINE SODIUM 100 MCG PO SCH (08:48)
[2019-09-28] MEDS: LIOTHYRONINE SODIUM 5 MCG PO SCH (08:49)
[2019-09-28 09:02] VITALS: O2SAT 99
[2019-09-28 12:15] VITALS: BP 117/61; TEMP 97.7
--- NOTE | 2019-09-28 12:52 | PN ---
Date of Progress Note: 09/27/2019 Subjective: The patient was seen for followup in the morning. She overall feels better compared to yesterday and looks better compared to yesterday. Urine output has improved and her urine was dark, but it has started to appear like normal urine, light yellow in color. Objective: Vital Signs: Reviewed. HEENT: Unremarkable. Lungs: Clear to auscultation. Heart: Sounds normal. Abdomen: Soft. Bowel sounds normal. No guarding, rigidity, tenderness, distention. Extremities: No leg edema. Impression: 1.Volume depletion. 2.Esophagitis, radiation induced. 3.Bladder cancer with metastatic disease to lung and bones. 4.Hypertension. 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 She still has significant pain with swallowing. We will continue her lidocain e. We discussed that she takes at home. Continue IV Protonix. Continue IV fluid and I have advised her to stay on clear liquid diet, but she may try ice cream, Ensure supplement, and yogurt, and see if she can tolerate that. MARTINA/MODL Voice ID: [id number] Report ID: [id number]
--- NOTE | 2019-09-29 01:38 | DS ---
Date of Discharge: 09/28/2019 Disposition: Discharged to go home. Physical Examination: HEENT: Unremarkable. Lungs: Clear to auscultation. Heart: Heart sounds normal. Abdomen: Soft, bowel sounds normal. No guarding, rigidity, tenderness, or distention. Voiding clear urine. Extremities: No leg edema. Discharge Medications And Instructions: Continue all prior home medications: Final Diagnoses: 1. Volume depletion. 2. Bladder cancer with metastatic disease to lung and bone. 3. Hypertension. 4. Hyperlipidemia. 5. Hypothyroidism. 6. Esophagitis, radiation induced. Hospital Course: A 64-year-old very pleasant female patient, admitted to the hospital after she came into ED with volume depletion problem. The patient was evaluated at the office, decision was made to admit her to hospital and she was started on IV fluid. She also noted reduced urine output from the admission because she was not able to eat or drink hardly anything due to significant dysphagia problem. Her home medications were continued including lidocaine viscous that she was taking as prescribed by her oncologist from [facility]. Clear liquid diet was ordered. Yesterday, we did talk about the importance of trying to [QAMARKER] Ensure with ice-cream, yogurt, etc., and she did try those and now she is able to tolerate all the different varieties of food along cold liquids. All this will continue throughout her hospitalization. Urine output amount has improved back to her normal amount as she reports and urine was dark before she came into the hospital and today was discharged to go home in stable condition. She will continue to follow up at [facility] for her routine medical care for her cancer. MARTINA/MODL Voice ID: [id number] Report ID: [id number] VINEET
== END 2019-09-28 15:21 | disposition home or self-care (01) | DRG 641 ==
LOC: 4TH 18:40
PROVIDERS: ADMIT Internal Medicine; ATTEND Internal Medicine
DX: E86.9 Volume depletion, unspecified (principal); C78.00 Secondary malignant neoplasm of unspecified lung; C79.51 Secondary malignant neoplasm of bone; C67.9 Malignant neoplasm of bladder, unspecified; I10 Essential (primary) hypertension; E78.5 Hyperlipidemia, unspecified; E03.9 Hypothyroidism, unspecified; K20.8 Other esophagitis; Z93.6 Other artificial openings of urinary tract status
CPT/HCPCS: 36415; 80053; 83735; 84443; 85025; C9113; J1650; J2405; J7030

== ENCOUNTER 2020-03-02 19:35 | Inpatient (IN) | payer OTHER ==
--- OUTSIDE RECORDS SUMMARY | 2020-03-02 19:36 | XMS REPORT | Clinical Summary ---
:1955 Author Organization [facility] Address [address] [place] [address] Care Team Providers Name Role Phone Asked, Pcp Primary Care Provider Unavailable Allergies Active Allergy Reactions Severity Noted Date Comments Codeine Itching 01/12/2018 Iodine Rash Medium 01/17/2018 TOPICAL Medications Medication Sig Dispensed Refills Start Date End Date Status RYTHMOL SR 225 mg 12 Take 225 mg by mouth 3 11/25/19 18 Active hr capsule 2 (two) times a day. thyroid,pork (ARMOUR Take 190 mg by mouth 12 11/25/19 18 Active THYROID ORAL) daily. coenzyme Q10 (CO Take 100 mg by mouth 0 Active Q-10) 100 mg capsule daily. cholecalciferol, Take 4,000 Units by 0 Active vitamin D3, (VITAMIN mouth. D3) 4,000 unit capsule melatonin 3 mg Take by mouth. 0 Active tablet magnesium chloride Take 64 mg by mouth 0 Active 64 mg tablet,delayed daily. release (DR/EC) DR tablet PROGESTERONE Take 25 mg by mouth. 2 tabs in a.m 0 Active MICRONIZED ORAL 1 tab in evening UNABLE TO FIND testesterone SR. 2 mg 0 Active 2 tabs in a.m. 2 tabs in the evening cranberry fruit Take by mouth. 0 Active extract (CRANBERRY ORAL) INOSITOL ORAL Take by mouth. 0 A ctive 5-hydroxytryptophan, Take by mouth. 0 Active 5-HTP, (5-HTP ORAL) PREGNENOLONE, BULK, 0 Active MISC prasterone, DHEA, Take by mouth. 0 Active (DHEA ORAL) UNABLE TO FIND cortisol 0 Activ e UNABLE TO FIND biest oral 0 Acti ve Active Problems Not on file Social History Tobacco Use Types Packs/Day Years Used Date Never Smoker Smokeless Tobacco: Never Used Alcohol Use Drinks/Week oz/Week Comments Yes 1/month Sex Assigned at Date Recorded Not on file Job Start Date Occupation Industry Not on file Not on file Not on file Travel History Travel Start Travel End No recent travel history available. 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
--- OUTSIDE RECORDS SUMMARY | 2020-03-02 19:37 | XMS REPORT | Clinical Summary ---
:1955 Author Organization [facility] Address [address] [place] [address] Care Team Providers Name Role Phone Unavailable Primary Care Provider Unavailable Allergies No Known Allergies Medications Medication Sig Dispensed Refills Start Date End Date Status propafenone Take 225 mg by 0 Act sudhir (RYTHMOL) 225 MG mouth 2 (two) tablet times daily. liothyronine Take 5 mcg by 0 Act sudhir (CYTOMEL) 5 MCG mouth daily. tabletIndications: a condition with low thyroid hormone levels ergocalciferol Take 50,000 Units 0 Active (VITAMIN D2) 50,000 by mouth daily. unit capsule magnesium oxide Take 400 mg by 0 Active (MAG-OX) 400 mg mouth daily. (241.3 mg magnesium) tablet coenzyme Q10 200 mg Take 200 mg by 0 Active capsule mouth daily. budesonide-formoter Inhale 2 puffs by 0 Active ol (SYMBICORT) mouth via inhaler 160-4.5 2 (two) times mcg/actuation daily. inhaler sulfamethoxazole-tr Take 1 tablet by 0 Active imethoprim (BACTRIM mouth once . DS) 800-160 mg per tabletIndications: Takes M W until 42 days. Last dose on Jun 25, 2019 predniSONE Take 10 mg by 0 Activ e (DELTASONE) 10 MG mouth daily. tabletIndications: 6 a day for 14 days, then 4 (current) a day for 28 days levothyroxine Take 100 mcg by 0 Active (TIROSINT) 100 mcg mouth daily. CapIndications: a condition with low thyroid hormone levels, replaced levothyroxine metoclopramide Take 1 tablet (5 30 tablet 0 06/17/2019 Active (REGLAN) 5 MG mg total) by tablet mouth 2 (two) times daily as needed (for headache). ketorolac (TORADOL) Take 1 tablet (10 20 tablet 0 06/17/2019 Active 10 mg tablet mg total) by mouth 2 (two) times daily as needed for Pain (headache). albuterol HFA Inhale 1 puff by 0 06/17/20 Discontinued (VENTOLIN HFA) 90 mouth via inhaler 19 mcg/actuation 2 (two) times inhaler daily. levothyroxine Take by mouth. 0 06/17/20 D iscontinued (TIROSINT) 100 mcg 19 Cap ipratropium-albuter Take 3 mLs by 360 mL 0 06/17/201907/17 ol (DUO-NEB) 0.5 nebulization 19 mg-3 mg(2.5 mg every 6 (six) base)/3 mL hours as needed nebulizer solution for Wheezing for up to 30 days. Active Problems Problem Noted Date Migraine 06/17/2019 Cerebrovascular accident (CVA), unspecified mechanism 06/16/2019 Encounters Date Type Specialty Care Team Description 06/16/2019 Orders Only General Internal Medicine 06/16/2019 Travel 06/15/2019 - Hospital Encounter Cardiology [facility], Cerebrova scular accident (CVA), unspecified mechanism (HCC); 06/17/2019 MD Clifford Intractable migraine without aura and wi th status migrainosus Clary Smith MD after 03/02/2019 Social History Tobacco Use Types Packs/Day Years Used Date Never Smoker Smokeless Tobacco: Never Used Alcohol Use Drinks/Week oz/Week Comments Yes very rare, socia lly Sex Assigned at Date Recorded Not on file Job Start Date Occupation Industry Not on file Not on file Not on file Travel History Travel Start Travel End No recent travel history available. Last Filed Vital Signs Vital Sign Reading Time Taken Blood Pressure 147/69 06/17/2019 7:22 AM MAIL LIST PROCESSOR Pulse 58 06/17/2019 8:30 AM MAIL LIST PROCESSOR Temperature 36.7 C (98.1 F) 06/17/2019 7:22 AM MAIL LIST PROCESSOR Respiratory Rate 20 06/17/2019 8:30 AM MAIL LIST PROCESSOR Oxygen Saturation 99% 06/17/2019 8:30 AM MAIL LIST PROCESSOR Inhaled Oxygen Concentration - - Weight 84.5 kg (186 lb 4.6 oz) 06/17/2019 7:22 AM MAIL LIST PROCESSOR Height 167.6 cm (5' 6") 06/15/2019 11:25 PM MAIL LIST PROCESSOR Body Mass Index 30.07 06/17/2019 7:22 AM MAIL LIST PROCESSOR Plan of Treatment Not on file Procedures Procedure Name Priority Date/Time Associated Comments Diagnosis RHYTHM STRIP - SCAN 06/20/2019 1:00 PM MAIL LIST PROCESSOR REPORT OF PROCEDURE - 06/20/2019 10:50 ENDOSCOPY SCAN AM MAIL LIST PROCESSOR RHYTHM STRIP - SCAN 06/20/2019 10:50 AM MAIL LIST PROCESSOR MR BRAIN WITHOUT IV Routine 06/16/2019 1:45 Resu lts for this CONTRAST PM MAIL LIST PROCESSOR procedure are i n the results section. MRA NECK WITHOUT IV Routine 06/16/2019 1:45 Resu lts for this CONTRAST PM MAIL LIST PROCESSOR procedure are i n the results section. MRA HEAD WITHOUT IV Routine 06/16/2019 1:45 Resu lts for this CONTRAST PM MAIL LIST PROCESSOR procedure are i n the results section. CBC W/PLT COUNT & AUTO Routine 06/16/2019 2:06 R esults for this DIFFERENTIAL AM MAIL LIST PROCESSOR procedure are i n the results section. T4, FREE Routine 06/16/2019 2:06 Results for this AM MAIL LIST PROCESSOR procedure are i n the results section. HIV-1 ANTIGEN WITH Routine 06/16/2019 2:06 Resul ts for this HIV-1/2 ANTIBODY AM MAIL LIST PROCESSOR procedure a re in the results section. C-REACTIVE PROTEIN Routine 06/16/2019 2:06 Resul ts for this AM MAIL LIST PROCESSOR procedure are i n the results section. VITAMIN B12 AND FOLATE Routine 06/16/2019 2:06 R esults for this AM MAIL LIST PROCESSOR procedure are i n the results section. TSH/FREE T4 IF Routine 06/16/2019 2:06 Results f or this INDICATED AM MAIL LIST PROCESSOR procedure are i n the results section. HEPATIC FUNCTION PANEL Routine 06/16/2019 2:06 R esults for this AM MAIL LIST PROCESSOR procedure are i n the results section. RPR Routine 06/16/2019 2:06 Results for this AM MAIL LIST PROCESSOR procedure are i n the results section. HOMOCYSTEINE Routine 06/16/2019 2:06 Results for this AM MAIL LIST PROCESSOR procedure are i n the results section. TROPONIN I Routine 06/16/2019 2:06 Results for this AM MAIL LIST PROCESSOR procedure are i n the results section. LIPID PANEL Routine 06/16/2019 2:06 Results for this AM MAIL LIST PROCESSOR procedure are i n the results section. PT/APTT Routine 06/16/2019 2:06 Results for this AM MAIL LIST PROCESSOR procedure are i n the results section. MAGNESIUM Routine 06/16/2019 2:06 Results for this AM MAIL LIST PROCESSOR procedure are i n the results section. COMPREHENSIVE Routine 06/16/2019 2:06 Results fo r this METABOLIC PANEL AM MAIL LIST PROCESSOR procedure ar e in the results section. CBC W/PLT COUNT & AUTO Routine 06/16/2019 2:06 R esults for this DIFFERENTIAL AM MAIL LIST PROCESSOR procedure are i n the results section. ECG 12-LEAD Routine 06/16/2019 12:32 Results for this AM MAIL LIST PROCESSOR procedure are i n the results section. ECG 12-LEAD Routine 06/16/2019 12:32 AM MAIL LIST PROCESSOR Procedure Note - Interface, External Ris In - 06/16/2019 12:37 AM MAIL LIST PROCESSOR Ventricular Rate 52 BPM Atrial Rate 52 BPM P-R Interval 188 ms QRS Duration 96 ms Q-T Interval 458 ms QTC Calculation(Bazett) 425 ms P [place] 39 degrees R [place] -21 degrees T [place] 19 degrees Sinus bradycardia with Latoya ture atrial complexes Otherwise normal ECG No previous ECGs available after 03/02/2019 Results RHYTHM STRIP - SCAN (06/20/2019 1:00 PM MAIL LIST PROCESSOR)Only the most recent of2 results within the time period is included. Narrative Performed At This result has an attachment that is no t available. EKG-SCANNED (06/20/2019 10:50 AM MAIL LIST PROCESSOR) Narrative Performed At This result has an attachment that is no t available. MR brain without IV contrast (06/16/2019 1:45 PM MAIL LIST PROCESSOR) Specimen Narrative Performed At FINAL REPORT [facility] MR, BRAIN, WITHOUT CONTRAST, MR, MRA, BR AIN, WITHOUT CONTRAST, MR, MRA, NECK, WITHOUT IV CONTRAST INDICATION: Stroke, follow up Ischemic Stroke Evaluation TECHNIQUE: Multiplanar, multisequence MR imaging of the brain without intravenous contrast. MRA of the head utilizing 3-D time-of-fl ight technique, with 3-D reconstructions. MRA of the neck utilizing 2-D and 3-D ti oj-hv-racvch technique, with 3-D reconstructions. COMPARISON: None FINDINGS: MRI Brain: Intracranial: A few foci of T2 prolongat ion within the periventricular and subcortical white ma tter are a nonspecific finding commonly attributed to chronic s mall vessel ischemic disease. No intracranial hemorrhage. No restricte d diffusion to suggest acute infarct. No mass effect.No hydroceph alus. Sinuses: No evidence of sinusitis. Masto ids are clear. Orbits: Globes are intact. Calvarium \\T\\ scalp: Unremarkable. MRA Head: There is no evidence of intracranial ane urysm, focal stenosis, or major branch vessel occlusion. MRA Neck: The carotid arteries in the neck are pat ent including their bifurcations. There is antegrade flow in the vertebral arteries in the neck. IMPRESSION: No acute infarct or hemorrhage. No arterial occlusion or high-grade sten osis. Signed: Lauren Hawthorne MD Report Verified Date/Time:06/16/2019 15:00:22 Procedure Note Interface, External Ris In - 06/16/2019 3:02 PM MAIL LIST PROCESSOR FINAL REPORT MR, BRAIN, WITHOUT CONTRAST, MR, MRA, BR AIN, WITHOUT CONTRAST, MR, MRA, NECK, WITHOUT IV CONTRAST INDICATION: Stroke, follow up Ischemic Stroke Evaluation TECHNIQUE: Multiplanar, multisequence MR imaging of the brain without intravenous contrast. MRA of the head utilizing 3-D time-of-fl ight technique, with 3-D reconstructions. MRA of the neck utilizing 2-D and 3-D ti [id number]-iv-tpdbbt technique, with 3-D reconstructions. COMPARISON: None FINDINGS: MRI Brain: Intracranial: A few foci of T2 prolongat ion within the periventricular and subcortical white ma tter are a nonspecific finding commonly attributed to chronic s mall vessel ischemic disease. No intracranial hemorrhage. No restricte d diffusion to suggest acute infarct. No mass effect. No hydrocephal us. Sinuses: No evidence of sinusitis. Masto ids are clear. Orbits: Globes are intact. Calvarium \\T\\ scalp: Unremarkable. MRA Head: There is no evidence of intracranial ane urysm, focal stenosis, or major branch vessel occlusion. MRA Neck: The carotid arteries in the neck are pat ent including their bifurcations. There is antegrade flow in the vertebral arteries in the neck. IMPRESSION: No acute infarct or hemorrhage. No arterial occlusion or high-grade sten osis. Signed: Lauren Hawthorne MD Report Verified Date/Time: 06/16/2019 1 5:00:22 Performing Organization Address City/State/Zipcode Phone Number [facility] MRA neck without IV contrast (06/16/2019 1:45 PM MAIL LIST PROCESSOR) Specimen Narrative Performed At FINAL REPORT [facility] MR, BRAIN, WITHOUT CONTRAST, MR, MRA, BR AIN, WITHOUT CONTRAST, MR, MRA, NECK, WITHOUT IV CONTRAST INDICATION: Stroke, follow up Ischemic Stroke Evaluation TECHNIQUE: Multiplanar, multisequence MR imaging of the brain without intravenous contrast. MRA of the head utilizing 3-D time-of-fl ight technique, with 3-D reconstructions. MRA of the neck utilizing 2-D and 3-D ti au-us-ustoyl technique, with 3-D reconstructions. COMPARISON: None FINDINGS: MRI Brain: Intracranial: A few foci of T2 prolongat ion within the periventricular and subcortical white ma tter are a nonspecific finding commonly attributed to chronic s mall vessel ischemic disease. No intracranial hemorrhage. No restricte d diffusion to suggest acute infarct. No mass effect.No hydroceph alus. Sinuses: No evidence of sinusitis. Masto ids are clear. Orbits: Globes are intact. Calvarium \\T\\ scalp: Unremarkable. MRA Head: There is no evidence of intracranial ane urysm, focal stenosis, or major branch vessel occlusion. MRA Neck: The carotid arteries in the neck are pat ent including their bifurcations. There is antegrade flow in the vertebral arteries in the neck. IMPRESSION: No acute infarct or hemorrhage. No arterial occlusion or high-grade sten osis. Signed: Lauren Hawthorne MD Report Verified Date/Time:06/16/2019 15:00:22 Procedure Note Interface, External Ris In - 06/16/2019 3:02 PM MAIL LIST PROCESSOR FINAL REPORT MR, BRAIN, WITHOUT CONTRAST, MR, MRA, BR AIN, WITHOUT CONTRAST, MR, MRA, NECK, WITHOUT IV CONTRAST INDICATION: Stroke, follow up Ischemic Stroke Evaluation TECHNIQUE: Multiplanar, multisequence MR imaging of the brain without intravenous contrast. MRA of the head utilizing 3-D time-of-fl ight technique, with 3-D reconstructions. MRA of the neck utilizing 2-D and 3-D ti he-qe-vomedm technique, with 3-D reconstructions. COMPARISON: None FINDINGS: MRI Brain: Intracranial: A few foci of T2 prolongat ion within the periventricular and subcortical white ma tter are a nonspecific finding commonly attributed to chronic s mall vessel ischemic disease. No intracranial hemorrhage. No restricte d diffusion to suggest acute infarct. No mass effect. No hydrocephal us. Sinuses: No evidence of sinusitis. Masto ids are clear. Orbits: Globes are intact. Calvarium \\T\\ scalp: Unremarkable. MRA Head: There is no evidence of intracranial ane urysm, focal stenosis, or major branch vessel occlusion. MRA Neck: The carotid arteries in the neck are pat ent including their bifurcations. There is antegrade flow in the vertebral arteries in the neck. IMPRESSION: No acute infarct or hemorrhage. No arterial occlusion or high-grade sten osis. Signed: Lauren Hawthorne MD Report Verified Date/Time: 06/16/2019 1 5:00:22 Performing Organization Address City/State/Zipcode Phone Number [facility] MRA head without IV contrast (06/16/2019 1:45 PM MAIL LIST PROCESSOR) Specimen Narrative Performed At FINAL REPORT [facility] MR, BRAIN, WITHOUT CONTRAST, MR, MRA, BR AIN, WITHOUT CONTRAST, MR, MRA, NECK, WITHOUT IV CONTRAST INDICATION: Stroke, follow up Ischemic Stroke Evaluation TECHNIQUE: Multiplanar, multisequence MR imaging of the brain without intravenous contrast. MRA of the head utilizing 3-D time-of-fl ight technique, with 3-D reconstructions. MRA of the neck utilizing 2-D and 3-D ti pp-eu-nmvvyy technique, with 3-D reconstructions. COMPARISON: None FINDINGS: MRI Brain: Intracranial: A few foci of T2 prolongat ion within the periventricular and subcortical white ma tter are a nonspecific finding commonly attributed to chronic s mall vessel ischemic disease. No intracranial hemorrhage. No restricte d diffusion to suggest acute infarct. No mass effect.No hydroceph alus. Sinuses: No evidence of sinusitis. Masto ids are clear. Orbits: Globes are intact. Calvarium \\T\\ scalp: Unremarkable. MRA Head: There is no evidence of intracranial ane urysm, focal stenosis, or major branch vessel occlusion. MRA Neck: The carotid arteries in the neck are pat ent including their bifurcations. There is antegrade flow in the vertebral arteries in the neck. IMPRESSION: No acute infarct or hemorrhage. No arterial occlusion or high-grade sten osis. Signed: Lauren Hawthorne MD Report Verified Date/Time:06/16/2019 15:00:22 Procedure Note Interface, External Ris In - 06/16/2019 3:02 PM MAIL LIST PROCESSOR FINAL REPORT MR, BRAIN, WITHOUT CONTRAST, MR, MRA, BR AIN, WITHOUT CONTRAST, MR, MRA, NECK, WITHOUT IV CONTRAST INDICATION: Stroke, follow up Ischemic Stroke Evaluation TECHNIQUE: Multiplanar, multisequence MR imaging of the brain without intravenous contrast. MRA of the head utilizing 3-D time-of-fl ight technique, with 3-D reconstructions. MRA of the neck utilizing 2-D and 3-D ti wt-cp-rfuuxh technique, with 3-D reconstructions. COMPARISON: None FINDINGS: MRI Brain: Intracranial: A few foci of T2 prolongat ion within the periventricular and subcortical white ma tter are a nonspecific finding commonly attributed to chronic s mall vessel ischemic disease. No intracranial hemorrhage. No restricte d diffusion to suggest acute infarct. No mass effect. No hydrocephal us. Sinuses: No evidence of sinusitis. Masto ids are clear. Orbits: Globes are intact. Calvarium \\T\\ scalp: Unremarkable. MRA Head: There is no evidence of intracranial ane urysm, focal stenosis, or major branch vessel occlusion. MRA Neck: The carotid arteries in the neck are pat ent including their bifurcations. There is antegrade flow in the vertebral arteries in the neck. IMPRESSION: No acute infarct or hemorrhage. No arterial occlusion or high-grade sten osis. Signed: Lauren Hawthorne MD Report Verified Date/Time: 06/16/2019 1 5:00:22 Performing Organization Address City/State/Zipcode Phone Number [facility] Vitamin B12 and Folate (06/16/2019 2:06 AM MAIL LIST PROCESSOR) Vitamin B12 223 213 - 816 pg/mL [facility] Folate >40.0 >=7.0 ng/mL [facility] Specimen Blood Narrative Performed At Fasting [facility] Performing Organization Address [facility] Phone Number [address] [address] CENTER TSH/Free T4 If Indicated (06/16/2019 2:06 AM MAIL LIST PROCESSOR) TSH 0.16 (L) 0.35 - 4.94 uIU/mL [facility] Specimen Blood Narrative Performed At Fasting [facility] Performing Organization Address [facility] Phone Number [address] [address] CENTER PT/aPTT (06/16/2019 2:06 AM MAIL LIST PROCESSOR) Protime 13.4 11.9 - 14.2 seconds [facility] INR 1.1 <=5.9 [facility] PTT 30.3 22.5 - 36.0 seconds [facility] Specimen Blood Narrative Performed At Effective 12/13/2018: PT Reference Range [facility] Change New: 11.9-14.2Previous: 11.7-14.7 RECOMMENDED COUMADIN/WARFARIN INR THERAPY RANGES STANDARD DOSE: 2.0-3.0Includes: PROPHYLAXIS for venous thrombosis, systemic embolization; TREATMENT for venous thrombosis and/or pulmonary embolus. HIGH RISK: Target INR is 2.5-3.5 for patients wiht mechanical heart valves. Performing Organization Address [facility] Phone Number [address] [address] [place] HIV-1 Antigen with HIV-1/2 Antibody (06/16/2019 2:06 AM MAIL LIST PROCESSOR) HIV-1 Antigen with HIV 1&[address] [facility] Specimen Blood Narrative Performed At Fasting [facility] Performing Organization Address City/[facility]/Zipcode Phone Number [facility] [address] [place] [address] CENTER C-Reactive Protein (06/16/2019 2:06 AM MAIL LIST PROCESSOR) CRP 0.78 (H) 0.00 - 0.50 mg/dL [facility] Specimen Blood Narrative Performed At Fasting [facility] Performing Organization Address City/[facility]/Zipcode Phone Number [facility] [address] [place] [address] CENTER CBC with platelet count + automated diff (06/16/2019 2:06 AM MAIL LIST PROCESSOR) WBC 7.4 3.5 - 10.5 K/L [facility] RBC 3.53 (L) 3.93 - 5.22 M/L [facility] Hemoglobin 11.5 11.2 - 15.7 GM/DL [facility] Hematocrit 34.7 34.1 - 44.9 % [facility] MCV 98.3 (H) 79.4 - 94.8 fL [facility] MCH 32.6 (H) 25.6 - 32.2 pg [facility] MCHC 33.1 32.2 - 35.5 GM/DL [facility] RDW 13.8 11.7 - 14.4 % [facility] Platelets 143 (L) 150 - 450 K/CU MM [facility] MPV 9.5 9.4 - 12.3 fL [facility] nRBC 0 0 - 0 /100 WBC [facility] % Neutros 81 % [facility] % Lymphs 11 % [facility] % Monos 5 % [facility] % Eos 0 % [facility] % Baso 0 % [facility] # Neutros 5.99 1.56 - 6.13 K/L [facility] # Lymphs 0.84 (L) 1.18 - 3.74 K/L [facility] # Monos 0.40 (H) 0.24 - 0.36 K/L [facility] # Eos 0.00 (L) 0.04 - 0.36 K/L [facility] # Baso 0.01 0.01 - 0.08 K/L [facility] Immature Granulocytes-Relative 2 (H) 0 - 1 % C HI [facility] Specimen Blood Performing Organization Address [facility]/[place] [address] [place] Troponin I (06/16/2019 2:06 AM MAIL LIST PROCESSOR) Troponin I <0.01 0.00 - 0.03 ng/mL [facility] Specimen Blood Narrative Performed At Troponin I (TnI) levels must be interpreted [facility] in the context of the presenting symptoms and the clinical findings. Elevated TnI levels indicate myocardial damage, but are not specific for ischemic heart disease. Elevated TnI levels are seen in patients with other cardiac conditions (including myocarditis and congestive heart failure), and slight TnI elevations occur in patients with other conditions, including sepsis, renal failure, acidosis, acute neurological disease, and persistent tachyarrhythmia. Fasting Performing Organization Address City/State/Zipcode Phone Number [address] [address] [place] RPR (06/16/2019 2:06 AM MAIL LIST PROCESSOR) RPR Nonreactive Nonreactive [facility] Specimen Blood Performing Organization Address City/[facility]/Zipcode Phone Number [facility] [address] [place] T4, free (06/16/2019 2:06 AM MAIL LIST PROCESSOR) Free T4 0.87 0.70 - 1.48 ng/dL [facility] Specimen Blood Narrative Performed At Fasting [facility] Performing Organization Address City/[facility] Phone Number [address] [address] CENTER Magnesium (06/16/2019 2:06 AM MAIL LIST PROCESSOR) Magnesium 1.8 1.6 - 2.6 mg/dL [facility] Specimen Blood Narrative Performed At Fasting [facility] Performing Organization Address City/State/Zipcode Phone Number [address] [address] CENTER Homocysteine - Fasting (06/16/2019 2:06 AM MAIL LIST PROCESSOR) Homocysteine 13.5 5.1 - 15.4 umol/L [facility] Specimen Blood Narrative Performed At Fasting [facility] Performing Organization Address City/[facility] Phone Number [address] [address] [place] Hepatic function panel (06/16/2019 2:06 AM MAIL LIST PROCESSOR) Protein, Total 5.5 (L) 6.0 - 8.3 gm/dL [facility] Albumin 3.3 (L) 3.5 - 5.0 g/dL [facility] Total Bilirubin 0.4 0.2 - 1.2 mg/dL [facility] Bilirubin, Direct 0.2 0.1 - 0.5 mg/dL [facility] Alkaline Phosphatase 60 40 - 150 U/L [facility] AST 11 5 - 34 U/L [facility] CENTER ALT 13 6 - 55 U/L [facility] Specimen Blood Narrative Performed At Fasting [facility] Performing Organization Address City/[facility] Phone [facility] [address] [place] [address] [place] Fasting lipid panel (06/16/2019 2:06 AM MAIL LIST PROCESSOR) Triglycerides 83 mg/dL [facility] Cholesterol 262 mg/dL [facility] HDL 86 mg/dL [facility] LDL Calculated 159 mg/dL [facility] Specimen Blood Narrative Performed At Triglyceride Reference Range: [facility] Low Risk <150 [id number] High Risk 200-499 Very High Risk>=500 Cholesterol Reference Range: Low Risk <200 [id number] High Risk>240 HDL Cholesterol Reference Range: Low Risk >=60 High Risk <40 LDL Cholesterol Reference Range: Optimal<100 Near [id number] [id number] [id number] Very High >=190 Fasting Performing Organization Address City/[facility]/Zipcode Phone Number [place] [phone] [place] [address] [place] Comprehensive metabolic panel (06/16/2019 2:06 AM MAIL LIST PROCESSOR) Protein, Total 5.5 (L) 6.0 - 8.3 gm/dL [facility] Albumin 3.3 (L) 3.5 - 5.0 g/dL [facility] Alkaline Phosphatase 60 40 - 150 U/L [facility] Total Bilirubin 0.4 0.2 - 1.2 mg/dL [facility] Sodium 136 136 - 145 meq/L [facility] Potassium 4.3 3.5 - 5.1 meq/L [facility] Chloride 104 98 - 107 meq/L [facility] CO2 25 22 - 29 meq/L [facility] BUN 27 (H) 7 - 21 mg/dL [facility] Creatinine 1.30 (H) 0.57 - 1.25 mg/dL [facility] Glucose 105 70 - 105 mg/dL [facility] Calcium 8.7 8.4 - 10.2 mg/dL [facility] AST 11 5 - 34 U/L [facility] ALT 13 6 - 55 U/L [facility] EGFR 41Comment: ESTIMATED GFR mL/min/1.73 sq m [facility] IS NOT ACCURATE [facility] CREATININE CLEARANCE IN PREDICTING GLOMERULAR FILTRATION RATE. ESTIMATED GFR IS NOT APPLICABLE FOR DIALYSIS PATIENTS. Specimen Blood Narrative Performed At Fasting [facility] Performing Organization Address City/State/Zipcode Phone Number [facility] [address] [place] [address] CENTER ECG 12 lead (06/16/2019 12:32 AM MAIL LIST PROCESSOR) Specimen Narrative Performed At Ventricular Rate 52 BPM GE MUSE Atrial Rate 52 BPM P-R Interval 188 ms QRS Duration 96 ms Q-T Interval 458 ms QTC Calculation(Bazett) 425 ms P [place] 39 degrees R [place] -21 degrees T [place] 19 degrees Sinus bradycardia with Premature atrial complexes Otherwise normal ECG No previous ECGs available Confirmed by MD FRANKEL YOCHAI ([id number]) on 06/17/2019 4:50:07 PM Procedure Note Interface, External Ris In - 06/17/2019 4:50 PM MAIL LIST PROCESSOR Ventricular Rate 52 BPM Atrial Rate 52 BPM P-R Interval 188 ms QRS Duration 96 ms Q-T Interval 458 ms QTC Calculation(Bazett) 425 ms P [place] 39 degrees R [place] -21 degrees T [place] 19 degrees Sinus bradycardia with Premature atrial complexes Otherwise normal ECG No previous ECGs available Confirmed by MD FRANKEL YOCHAI ([id number]) on 06/17/2019 4:50:07 PM Performing Organization Address City/State/Zipcode Phone Number GE MUSE after 03/02/2019 Insurance Payer Benefit Plan / Group Subscriber ID Type Phone A ddress [employer] - [employer] CARE [employer] HMO/POS/OPEN ACCESS xxxxxxxxxxx HMO/POS Advance Directives For more information, please contact:[place] [phone] [place], [place] [phone] Code Status Date Activated Date Inactivated Comments Full Code 06/16/2019 1:23 AM 06/17/2019 1:38 PM This code status was determined by: Patient
--- OUTSIDE RECORDS SUMMARY | 2020-03-02 19:43 | XMS REPORT | Continuity of Care Document ---
:1955 Author Organization [facility] t Address [address] Casanova. [address] [place] [id number] Care Team Providers Name Role Phone LUIGI Primary Care Physician Unavailable CELI Attending Clinician Unavailable NAKUL Attending Clinician Unavailable Lita CURRIE Attending Clinician Unavailable Gary AGUILAR Attending Clinician Unavailable BRITTON Attending Clinician Unavailable Karen LIAO Attending Clinician Unavailable CYNDI NAILS Attending Clinician Unavailable GENARO Attending Clinician Unavailable ELEANOR Attending Clinician Unavailable Lawrence PIÑA Attending Clinician Yonatan RESOLUTE PROFESSIONAL, G Attending Clinician Luis Miguel KNIGHT Attending Clinician Charito PIÑA Attending Clinician Levy PIÑA Attending Clinician Ashwin Attending Clinician Unavailable Knox RESOLUTE PROFESSIONAL, C Attending Clinician Milind SIMENTAL L Attending Clinician Judi CHRISTIANSON, M Attending Clinician Unavailable Ting CASILLAS Attending Clinician Britton PIÑA Attending Clinician Claudio PIÑA Attending Clinician Levy PIÑA PhD Attending Clinician Patrick PIÑA Attending Clinician Juliette PIÑA PhD, Airam Attending Clinician Mervin CHRISTIANSON, R Attending Clinician Unavailable Cheli [facility] Attending Clinician Clarissa CHRISTIANSON, L. Attending Clinician Unavailable Benson CHRISTIANSON Attending Clinician Unavailable Sam CHRISTIANSON, W Attending Clinician Unavailable Luigi PIÑA Attending Clinician Melyssa CHRISTIANSON, S Attending Clinician Unavailable Rosaline CHRISTIANSON, C Attending Clinician Unavailable Bear CHRISTIANSON Attending Clinician Gary VAZ Attending Clinician Unavailable CLAUDIO Attending Clinician Unavailable Patrick MCNAIRP, R Attending Clinician LEVY Attending Clinician Unavailable LUIGI Attending Clinician Unavailable Cora PIÑA Attending Clinician Celi CASTILLO Attending Clinician Unavailable Gary Delong MD. Attending Clinician Jhon PIÑA Attending Clinician CORA Attending Clinician Unavailable Shana Mojica Attending Clinician Ami PIÑA Attending Clinician Unavailable Karl CHRISTIANSON Attending Clinician Unavailable AMI Attending Clinician Unavailable Genaro Attending Clinician Hilario CHRISTIANSON, I Attending Clinician Unavailable BENSON Attending Clinician Unavailable Benson MOTTA Attending Clinician Cyndi PIÑA Attending Clinician Prem CHRISTIANSON, L Attending Clinician Unavailable Eleanor CASILLAS Attending Clinician Dre MOTTA G Attending Clinician Tracy CHRISTIANSON, A Attending Clinician Unavailable Summer SIMENTAL Attending Clinician Simon CHRISTIANSON, M Attending Clinician Unavailable Stuart PIÑA Attending Clinician Jose Alberto CHRISTIANSON, A Attending Clinician Unavailable Chaitanya PIÑA F Attending Clinician Kd SORIANO, Dereje Attending Clinician Doroteo CHRISTIANSON, F Attending Clinician Unavailable Jamal MOTTA Attending Clinician Santana Christine RN Attending Clinician Unavailable Gong Attending Clinician Unavailable Chano CHRISTIANSON, M Attending Clinician Unavailable Phil CHRISTIANSON, L Attending Clinician Unavailable Veronika CHRISTIANSON, D Attending Clinician Dai CHRISTIANSON Attending Clinician Unavailable Shannan RESOLUTE PROFESSIONAL Attending Clinician Tigre CASILLAS Attending Clinician Wero Gates RN. Attending Clinician Unavailable Les PIÑA, Chayito Dobson Attending Clinician Unavailable Jt SENA, Dee Attending Clinician Alejo Collado MD Attending Clinician Lynne SENA, Ysabel Attending Clinician Unavailable Daniel CHRISTIANSON MSN Attending Clinician Unavailable Jovanny PIÑA Attending Clinician Becca PIÑA Attending Clinician Rachel PIÑA Attending Clinician Rasta CHRISTIANSON, L Attending Clinician Unavailable Lamont CASILLAS, J Attending Clinician Leah CASILLAS, A Attending Clinician Daniele PIÑA Attending Clinician Aye PIÑA Attending Clinician Unavailable Mia CHRISTIANSON, M Attending Clinician Unavailable Alvarez CHRISTIANSON, A Attending Clinician Unavailable Kira PIÑA Attending Clinician Min PIÑA Attending Clinician Dilip PIÑA Attending Clinician Unavailable Ciarra PIÑA, F Attending Clinician Chuy Verdin MA Attending Clinician Unavailable Sabrina CASILLAS Attending Clinician Natan Figueroa APN Attending Clinician Kimmie PIÑA Attending Clinician Antonio PIÑA Attending Clinician KIMMIE Attending Clinician Unavailable Layton CASILLAS, N Attending Clinician Tavon PIÑA AMarina Attending Clinician Davi PIÑA Attending Clinician Tim CHRISTIANSON Attending Clinician Aparicio MD, J Attending Clinician Lita Holland Attending Clinician Jovon CHRISTIANSON, A Attending Clinician Unavailable Redd BEST Attending Clinician Unavailable Carroll PIÑA Attending Clinician Marce CASTILLO Attending Clinician Rajinder Rodriguez RN Attending Clinician Unavailable [facility] Admitting Clinician Unavailable IMERСВЕТЛАНА Admitting Clinician Unavailable Payers Payer Name Policy Type Policy Number Effective Expiration Source Date Date CIGNA HMO POS OPEN [id number] 2013 ACCESS 00:00:00 [place] [id number] 2016 2018 00:00:00 00:00:00 MEDICAREMEDICARE PART [id number] 2018 MD [place] [id number] 2017 00:00:00 -[id number] [facility] - MGD CARECIGNA xxxxxxxxxxx [facility] HMO/POS/OPEN - Medical ACCESSxxxxxxxxxxxHMO/ Rolando ter POS Problems Condition Condition Condition Status Onset Resolution Last Treating Co mments Source Name Details Category Date Date Treatment Clinician Date Chronic Chronic Disease Active 0 pulmonary pulmonary 8- Donnie rso embolism embolism 00:00: n 00 Pulmonary Pulmonary Disease Active 2019-0 edema edema 02-27 Anderso 00:00: n 00 Pneumonia Pneumonia Disease Active 2019-0 8-13 Anderso 00:00: n 00 Paroxysmal Paroxysmal Disease Active 0 M D atrial atrial 02-27 Anderso fibrillati fibrillati 00:00: n on on 00 Chest pain Chest pain Disease Active 2020-0 M D 8-13 Anderso 00:00: n 00 Cardiac Cardiac Disease Active 2019-0 enzymes enzymes 8 Anderso abnormal abnormal 00:00: n 00 Ulcerative Ulcerative Disease Active 2020-0 M D oral oral 8 Anderso mucositis mucositis 00:00: n due to due to 00 other drug other drug Antineopla Antineopla Disease Active 2019-0 M D stic stic 8 Anderso chemothera chemothera 00:00: n py induced py induced 00 pancytopen pancytopen ia ia Hypophosph Hypophosph Disease Active M D atemia atemia 02-20 Anderso 00:00: n 00 Allergic Allergic Disease Active rhinitis rhinitis 02-20 Karthik o 00:00: n 00 Serum Serum Disease Active creatinine creatinine 02-15 An derso raised raised 00:00: n 00 Pain in Pain in Disease Active left left 01-03 Anderso shoulder shoulder 00:00: n 00 Pneumoniti Pneumoniti Disease Active Last M D s s 01-03 Assessmen Anderso 00:00: t & Plan: n 00 Recent imaging showing new pulmonary opacities throughou t the left lung most likely consisten t to radiation changes. Pulmonary function studies show a mild restricti ve process measuring 77% of predicted , previousl y measuring 100% prior to surgery. Diffusion capacity now measures 36% which is severely reduced. These changes along with the time frame in which the patient was treated with radiation are more than likely due to radiation pneumonit is. She recently completed a 2 week course of prednison e stating some improveme nt in her dyspnea. At this time, we would recommend starting a prednison e taper starting at 40mg of prednison e and tapering down over 6-8 weeks. At this time we plan to start prednison e 40mg for 4 weeks, then tapering down to 30mg for 1 week, 20mg for 1 week, and 10mg for 1 week. Bactrim MWF will be initiated for PCP prophylax is.We will evaluate her in6 weeks with repeat imaging, lung function studies and a 6 minute walk test. Dyspnea Dyspnea Disease Active Last 01-03 Assessmen Anderso 00:00: t & Plan: n 00 Dyspnea experienc ed by the patient is multifact orial in nature. Radion pneumonit is along with LLL resection resulting in volume loss are contribut ing factors. There is a small to moderate left sided pleural effusion noted post surgicall y, we will continue to monitor. Other causes of dyspnea are possible cardiac dysfuncti on noted by recent echocardi ogram. Recommend evaluatio n by cardiolog y. 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 BP Readings from Last 3 Encounter s: 07/25/19 142/81 07/04/19 120/77 06/28/19 145/86 Secondary Secondary Disease Active 2018-07 Last malignant malignant 2-18 Assessmen A nderso neoplasm neoplasm 00:00: t & Plan: n of left of left 00 Assessmen lung lung Jenelle Ortiz is a 64 y.o. 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 On 07/31/2019 she underwent a left thoracoto my, left lobectomy , sleeve bronchopl asty, resection and reconstru ction of the pericardi um (as the tumor was extending into the left atrium) by Dr. Sanabria. Surgical pathology demonstra celina metastati c urothelia l carcinoma , (07/24)LNs, with a positive pericardi al, perivascu lar and vascular margins, and pericardi um and atrium.Pl anDr. Sanabria has seen and evaluated Mrs. Ortiz. She is recoverin g well from surgery. Her pathology results were discussed with Dr. Snyder' s team who has ordered additiona l tumor markers. She will be seen Dr. Snyder' s team in September for continuat ion of care. We refer her to Thoracic Radiation Oncology for evaluatio n of adjuvant radiation therapy. At this time, she will be pending for our service. Migraine Migraine Disease [facility] 2018[facility]07 [facility] Cerebrovas Cerebrovas Disease Active 2018-[address] cular cular 08-16 [facility] accident 00:[facility]: Medica l (CVA), (CVA), 00 Center unspecifie unspecifie d d mechanism mechanism Cough Cough Disease Active 2018-07 Last 030 Assessmen Anderso 00:00: t & Plan: n 00 Cough is likley secondary to mass and inflammat ion will assess response to steroids. Long-term Long-term Disease Active drug drug 02-09 Anderso therapy therapy 00:00: n 00 Edema of Edema of Disease Active 2017-07 lower lower 0-02 Anderso extremity extremity 00:00: n 00 Malignant Malignant Disease Active Overview: neoplasm neoplasm -17 Added Karthik o of of 00:00: automatic n overlappin overlappin 00 ally from g sites of g sites of request bladder bladder for surgery [id number] Renal Renal Disease Active Overview: insufficie insufficie 8-17 Formattin Anderso ncy ncy 00:00: g of this n 00 note might be different from the original. Lab Results Component Value Date CREATININ E 1.19 (H) 0 CREATININ E 1.30 (H) 9 CREATININ E 1.13 (H) 9 CREATININ E 1.18 (H) 9 CREATININ E 1.32 (H) 9 estimated creatinin e clearance is 51.7 mL/min (A) (by C-G formula based on SCr of 1.19 mg/dL (H)).Lab Results Component Value Date/Time EGFRAA 55 (L) 0 12:16 PM EGFRNAA 48 (L) 0 12:16 PM Rash Rash Disease Active 8-17 Anderso 00:00: n 00 Superficia Superficia Disease Active M D l l 8-16 Anderso thrombophl thrombophl 00:00: n ebitis ebitis 00 Cardiac Cardiac Disease Active Overview: arrhythmia arrhythmia 7-10 occ An derso 00:00: premature n 00 beat Hypothyroi Hypothyroi Disease Active Overview : dism dism 7-10 TFTs Anderso 00:00: 07/25/2019 n 00 WNL Personal Personal Disease Active Overview: history of history of 7-10 Added An derso malignant malignant 00:00: automatic n neoplasm neoplasm 00 ally from of bladder of bladder request for surgery [id number] Bladder Bladder Disease Active Last MD cancer cancer 7-10 Assessmen Anderso 00:00: t & Plan: n 00 Nia Ortiz is a 64 y.o. female who presents with history of bladder cancer s/p Cysto EUA on 01/26/[address] Meyers. She then proceeded with 4 cycles of dd MVAC (last cycle on 03/17/18) with Dr. Snyder. She required a blood transfusi on during her final cycle. She underwent radical cystectom y surgery with ileal conduit diversion with Dr. Rader on 8. History of History of Disease Active M D antineopla antineopla 7-10 An derso stic stic 00:00: n chemothera chemothera 00 py py History of Past Illness Condition Condition Condition Status Onset Resolution Last Treating Co mments Source Name Details Category Date Date Treatment Clinician Date Encounter Encounter Disease Resolve 2020-01-04 2020-01-04 for for d 7- 00:00:00 19:54:13 Karthik o preprocedu preprocedu 00:00: n ral ral 00 examinatio examinatio n n Other Other Disease Resolve 2019-11-27 2019-11-27 secondary secondary d 4-21 00:00:00 16:54:58 Anderso thrombocyt thrombocyt 00:00: n openia openia 00 Postoperat Postoperat Disease Resolve 2019-11-27 2019-11-27 sudhir nausea sudhir nausea d 1-08 00:00:00 16:55:09 Anderso and and 00:00: n vomiting vomiting 00 Encounter Encounter Disease Resolve 2018-072019-11-27 2019-11-27 for for d 2-10 00:00:00 16:54:41 Karthik o screening screening 00:00: n for for 00 nutritiona nutritiona l disorder l disorder Other Other Disease Resolve 2019-11-27 2019-11-27 nonspecifi nonspecifi d 01-09 00:00:00 16:54:49 Anderso c abnormal c abnormal 00:00: n finding of finding of 00 lung field lung field Hypomagnes Hypomagnes Disease Resolve 2017-072019-11-27 2019-11-27 MD cristela silva 0-05 00:00:00 16:54:45 Karthik o 00:00: n 00 Allergies, Adverse Reactions, Alerts Allergy Allergy Status Severity Reaction(s) Onset Inactive Treating Comm ents Source Name Type Date Date Clinician Iodine Propensi Active Rash TOPICAL Pillai ty to 01-17 Methodi adverse 00:00: st reaction 00 s to drug Codeine Propensi Active Itching [place] n ty to 01-12 Methodi adverse 00:00: st reaction 00 s to drug Family History Family Member Diagnosis Comments Start Date Stop Date Source Natural brother Melanoma MD [place] on Natural father -Gastrointestinal MD [place] (Esophagus, Liver, Bile Duct, Stomach, Pancreas, Colon, Rectum, Anus Maternal grandfather -Melanoma MD Natan vogelon Natural mother -Melanoma MD Cheri perez Social History Social Habit Start Date Stop Date Quantity Comments Source Sex Assigned At F MD [place] on Exposure to Not sure MD [place] SARS-CoV-2 (event) Tobacco use and 2020-02-27 2020-02-27 Never used MD [place] on exposure 00:00:00 00:00:00 Alcohol intake 2020-02-27 2020-02-27 Current drinker MD Eliz flores 00:00:00 00:00:00 of alcohol (finding) Alcohol Comment 2018-01-24 2018-01-24 2-3 drinks past 3 MD [place] 00:00:00 00:00:00 months Smoking Status Start Date Stop Date Source Never smoker MD [place] Medications Ordered Filled Start Stop Current Ordering Indication Dosage Frequency Signature Comments Components Source Medication Medication Date Date Medication? Clinician (SIG) Name Name magnesium Yes 400mg Take 400 MD oxide 8-14 mg by Anderso (MAOX) 400 22:05: mouth n mg tablet 45 twice daily. coenzyme Yes 200mg Take 200 MD Q10 200 mg 8-14 mg by Anderso capsule 22:05: mouth n 45 daily. sodium 2020-0 Yes Malignant 10mL Swish and M D chloride-so 8-14 neoplasm of spit 10 mL Anderso dium 00:00: overlapping every 2 n bicarbonate 00 sites of (two) (SALT AND bladder hours SODA) while mouthwash awake. Use 2 teaspoonfu ls and dissolve in 1 quart (960 mL) of warm water. levoFLOXaci 2020-0 Yes Pneumonia, 500mg Take 1 MD n 8-14 not tablet Anderso (LEVAQUIN) 00:00: otherwise (500 mg) n 500 mg 00 specified by mouth tablet daily. amoxicillin 2020-0 Yes Pneumonia, 875mg Take 1 MD -clavulanat 8-14 not tablet Karthik o e 00:00: otherwise (875 mg) n (Augmentin) 00 specified by mouth 875 mg-125 twice mg per daily. tablet ipratropium 2020-0 Yes Dyspnea 1{puff} Inhale 1 MD (Atrovent 8-14 puff by Anderso HFA) 17 00:00: mouth n mcg/puff 00 twice inhaler daily. furosemide 2020-0 Yes Edema of 20mg Take 1 M D (Lasix) 20 8-14 lower tablet (20 An derso mg tablet 00:00: extremity mg) by n 00 mouth daily as needed for edema. Hold for systolic blood pressure less than 110. Tirosint 2020-0 Yes Hypothyroid 100ug Take 100 MD 100 mcg cap 8-14 ism, not mcg by An derso 00:00: otherwise mouth n 00 specified daily. enoxaparin 2020-0 Yes Pulmonary 120mg Inject 0.8 MD (Lovenox) 8-14 embolism, mL (120 An derso 120 mg/0.8 00:00: not mg) under n mL 00 otherwise the skin prefilled specified daily. syringe Hold for platelets < 50,000 and/or PRIOR to any invasive procedure. Tirosint 2020-0 2020- No Hypothyroid 100ug Take 100 MD 100 mcg cap 8-14 08-14 ism, not mcg by A nderso 00:00: 00:00 otherwise mouth n 00 :00 specified daily. xyloxylin 2020-0 Yes Other 15mL Swish and MD oral 8-12 ulcerative swallow 15 And erso suspension 00:00: oral mL by n (AMB-CMPD) 00 mucositis mouth 4 (four) times a day (before meals and at night). prochlorper 2020-0 Yes Nausea 10mg Take 1 MD azine 8-12 tablet (10 Anderso (COMPAZINE) 00:00: mg) by n 10 mg 00 mouth tablet every 6 (six) hours as needed for nausea (1st choice). sucralfate 2019-0 Yes Other 1000mg Swish and (Carafate) 02-26 ulcerative swallow 10 Anderso 100 mg/mL 00:00: oral mL (1,000 n suspension 00 mucositis mg) 4 (four) times a day before meals and nightly. triamcinolo 2019- 2020- No Rash Apply MD bob 02-26 topically Anderso (KENALOG) 00:00: 00:00 to n 0.1% lotion 00 :00 affected area(s) 3 (three) times a day. potassium-s 2019-2019- Yes Hypophospha 1{packe Take 1 MD odium 02-20 08-21 temia t} packet by Anderso phosphates 00:00: 04:59 mouth n (Phos-NaK) 00 :00 twice 280 mg-160 daily for mg-250 mg 14 days. powder Mix contents of 1 packet of the powder in 2 and 1/2 ounces (75 mL) of water or juice. Stir until completely dissolved and drink the mixture right away after mixing. Do not save for later use. sulfamethox 2019-0 2020- No 1{tbl} Take 1 M D azole-trime 7- 07-30 tablet by An derso thoprim 15:33: 00:00 mouth. n (BACTRIM 28 :00 SS) 400 mg-80 mg per tablet morphine 2020-0 Yes Neoplasm 15mg Take 1 MD (MSIR) 15 7-30 related tablet (15 A nderso mg IR 00:00: pain mg) by n tablet 00 (acute) mouth (chronic) every 2 (two) hours as needed for pain (maximum 6 doses a day). polyethylen 2019-0 2020- Yes Slow 17g Take 17 g MD e glycol 02-13 08-30 transit by mouth 2 A nderso (GLYCOLAX) 00:00: 04:59 constipatio (two) n 17 00 :00 n times a gram/dose day as powder needed (Constipat ion (use if no bowel movement in last 24 hours)) for up to 30 days. morphine 2019- Yes Slow 30mg Take 1 MD (MS CONTIN) 02-13 08-30 transit tablet (30 Anderso 30 mg 12 hr 00:00: 04:59 constipatio mg) by n tablet 00 :00 n mouth every 12 (twelve) hours for 30 days. senna 2019- No Slow 3{tbl} Take 3 MD (SENOKOT) 02-13 08-14 transit tablets by Anderso 8.6 mg 00:00: 00:00 constipatio mouth n tablet 00 :00 n twice daily for 30 days. INV-(2019- No Fatigue 1{capsu Take 1 MD 526) 02-13 08-03 le} capsule by Anderso methylcellu 00:00: 00:00 mouth n lose/placeb 00 :00 twice o 250 MG daily for capsule 28 days. INV-(2019- No Fatigue 1{capsu Take 1 MD 526) 02-13 07-30 le} capsule by Anderso methylcellu 00:00: 00:00 mouth n lose/placeb 00 :00 twice o 250 MG daily for capsule 28 days. INV-(2019- No Fatigue 1{capsu Take 1 MD 526) 02-13 07-30 le} capsule by Anderso methylcellu 00:00: 00:00 mouth n lose/placeb 00 :00 twice o 250 MG daily for capsule 28 days. morphine 2019- No Neoplasm 15mg Take 1 MD (MSIR) 15 02-13-30 related tablet (15 Anderso mg IR 00:00: 00:00 pain mg) by n tablet 00 :00 (acute) mouth (chronic) every 2 (two) hours as needed for pain (maximum 6 doses a day). morphine 2019- No Slow 30mg Take 1 MD (MS CONTIN) 02-13 07-30 transit tablet (30 Anderso 30 mg 12 hr 00:00: 00:00 constipatio mg) by n tablet 00 :00 n mouth every 12 (twelve) hours for 30 days. INV-(2018-0 2020-0 2020- Yes Fatigue 1{capsu Take 1 MD 526) 02-12 le} capsule by Cheri methylcellu 00:00: 04:59 mouth n lose/placeb 00 :00 twice o 250 MG daily for capsule 28 days. LORazepam 2019- No Claustropho 1mg Take 1 MD (ATIVAN) 1 02-12 wojciech tablet (1 And erso mg tablet 00:00: 00:00 mg) by n 00 :00 mouth once as needed for anxiety (Take 1 tab PO prior to MRI, may repeat 30 mins later.) for up to 2 doses. Take 1 tab PO 30 min prior to MRI, may repeat x 1 senna-docus Yes Slow 2{tbl} Take 2 MD ate (Senna -17 transit tablets by [facility]) 8.6 00:00: constipatio mouth n mg-50 mg 00 n twice tablet daily. morphine No Slow 15mg Take 1 MD (MS Contin) 01-3130 transit tablet (15 Anderso 15 mg ER 00:00: 00:00 constipatio mg) by n tablet 00 :00 n mouth every 12 (twelve) hours. HYDROcodone 2019- No Slow 1{tbl} Take 1 M D -acetaminop 01-31-30 transit tablet by Cheri iqbal ([employer]) 00:00: 00:00 constipatio mouth n 10 mg-325 00 :00 n every 4 mg per (four) tablet hours as needed for moderate pain. HYDROcodone 2019- No Personal 1{tbl} Take 1 MD -acetaminop 7-04 23-17 history of tablet by Cheri iqbal ([employer]) 00:00: 16:25 malignant mouth n 10 mg-325 00 :08 neoplasm of every 8 mg per bladder (eight) tablet hours as needed for severe pain. sulfamethox 2019- No Pneumonitis Take 1 MD azole-trime 01-15 tablet Serafin so thoprim 00:00: 00:00 daily MWF n (Bactrim 00 :00 DS) 800 mg-160 mg per tablet predniSONE 2019- No Pneumonitis 40mg Take 2 MD (DELTASONE) 7-01 08-14 tablets Donnie rso 20 mg 00:00: 00:00 (40 mg) by n tablet 00 :00 mouth daily. predniSONE 2019- No Pneumonitis 40mg Take 2 MD (DELTASONE) 01-15 tablets Donnie rso 20 mg 00:00: 00:00 (40 mg) by n tablet 00 :00 mouth daily. montelukast 2019- Yes TAKE 1 MD (SINGULAIR) 6-19 TABLET BY And erso 10 mg 00:00: MOUTH n tablet 00 EVERY DAY nitrofurant 2019- No Enterococcu 100mg Take 1 MD oin 6- 06-12 s urinary capsule Karthik o monohyd/m-c 00:00: 04:59 tract (100 mg) n ryst 00 :00 infection by mouth (Macrobid) twice 100 mg daily for capsule 5 days. Take with food predniSONE 2019- No Radiation 40mg Take 4 MD (DELTASONE) 6- 08-14 pneumonitis tablets Anderso 10 mg 00:00: 00:00 (40 mg) by n tablet 00 :00 mouth daily. 4 tablets x 4 days, then 3 tablets x 4 days, then 2 tablets x 3 days, then 1 tablet X 2 days, 1/2 tablet for 2 days. HYDROcodone 2019- No Cancer 1{tbl} Take 1 MD -acetaminop 5-28 07-30 associated tablet by Andbishnu iqbal ([employer]) 00:00: 00:00 pain mouth n 5 mg-325 mg 00 :00 every 4 per tablet (four) hours as needed for moderate pain or severe pain. ondansetron 2019- Yes Vomiting, 8mg Take 1 MD (ZOFRAN) 8 5-26 not tablet (8 Donnie rso mg tablet 00:00: otherwise mg) by n 00 specified mouth every 8 (eight) hours as needed for nausea. HYDROcodone 2019- No Cancer 1{tbl} Take 1 MD -acetaminop 5-21 05-28 associated tablet by Anderso farida ([employer]) 00:00: 00:00 pain mouth n 5 mg-325 mg 00 :00 every 4 per tablet (four) hours as needed for moderate pain or severe pain. nitrofurant 2019- No Dysuria 100mg Take 1 MD oin 4-23 05-04 capsule Anderso monohyd/m-c 00:00: 04:59 (100 mg) n ryst 00 :00 by mouth (Macrobid) twice 100 mg daily for capsule 10 days. cholecalcif 2019- No [id number] Take rosangela, 11-05 10,000 Anderso vitamin D3, 14:05: 00:00 Units by n (VITAMIN 09 :00 mouth D3) 5,000 daily. units tab tablet predniSONE 2019- No Other TAKE 6 MD (DELTASONE) 11-01-21 nonspecific TABLETS Anderso 10 mg 00:00: 00:00 abnormal ONCE A DAY n tablet 00 :00 finding of FOR 14 lung field DAYS. THEN TAKE 4 TABLETS ONCE A DAY FOR 28 DAYS. ABH Yes Vomiting, 1{capsu Take 1 MD capsules 10-11 not le} capsule by Serafin booker (AMB-CMPD) 00:00: otherwise mouth n 00 specified every 8 (eight) hours as needed for nausea (2nd choice). prochlorper 2019- No Vomiting, 10mg Take 1 MD azine 10-11-12 not tablet (10 Anderso (COMPAZINE) 00:00: 00:00 otherwise mg) by n 10 mg 00 :00 specified mouth tablet every 6 (six) hours as needed for nausea (1st choice). HYDROcodone 2019- No Cancer 1{tbl} Take 1 MD -acetaminop 10-11 associated tablet by Andersozzie hen (NORCO) 00:00: 00:00 pain mouth n 5 mg-325 mg 00 :00 every 6 per tablet (six) hours as needed for moderate pain. 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 ondansetron 2019- No Secondary 8mg Take 1 MD (ZOFRAN) 8 09-23 malignant tablet (8 Anderso mg tablet 00:00: 00:00 neoplasm of mg) by n 00 :00 left lung mouth every 8 (eight) hours as needed for nausea. LORazepam 2019- No Claustropho Take 1 MD (Ativan) 09-12 wojciech tablet Anderso 0.5 mg 00:00: 00:00 (0.5 mg) n tablet 00 :00 by mouth for 1 dose 30 minutes prior to MRI, Simulation and spine radiation. May repeat for 1 more dose if needed after 30 minutes. HYDROcodone 2020- No Pleuritic 1{tbl} Take 1 MD -acetaminop 09-08- pain tablet by An georgette iqbal ([place]) 00:00: 00:00 mouth n 5 mg-325 mg 00 :00 every 4 per tablet (four) hours as needed for moderate pain or severe pain. amoxicillin 2019- No Pleuritic 875mg Take 1 MD -clavulanat 09-08 pain tablet Serafin so e 00:00: 00:00 (875 mg) n (Augmentin) 00 :00 by mouth 875 mg-125 twice mg per daily. tablet liothyronin Yes Other 5ug Take 1 MD e (CYTOMEL) 2-19 specified tablet (5 Anderso 5 mcg 00:00: hypothyroid mcg) by n tablet 00 ism mouth daily. TIROSINT 2019- No Hypothyroid 1{capsu Take 1 MD 100 mcg cap - 08-14 ism, not le} capsule by Anderso 00:00: 00:00 otherwise mouth n 00 :00 specified daily. Note change in dose diphenhydrA 2019- No 50mg Take 50 mg MD MINE 1-17 -17 by mouth Anderso (BENADRYL) 19:59: 00:00 as needed n 25 mg 30 :00 for tablet allergies. metoprolol 0 Yes Other 12.5mg Take 0.5 MD succinate 1-17 nonspecific tablets Anderso (TOPROL XL) 00:00: abnormal (12.5 mg) n 25 mg 24 hr 00 finding of by mouth tablet lung field daily. Hold for SBP < 100 or HR < 60 Do NOT crush, break or chew. HYDROmorpho 2019- No Other 2mg Take 1 MD ne 08-03 nonspecific tablet (2 An derso (DILAUDID) 00:00: 00:00 abnormal mg) by n 2 mg tablet 00 :00 finding of mouth lung field every 4 (four) hours as needed for severe pain. traMADol 2019- No pain 50mg Take 1 MD (ULTRAM) 50 08-03 tablet (50 A nderso mg tablet 00:00: 00:00 mg) by n 00 :00 mouth every 6 (six) hours as needed for moderate pain. gabapentin 2019- No Other Take 1 MD (NEURONTIN) 08-03 nonspecific capsule Anderso 300 mg 00:00: 05:59 abnormal (300 mg) n capsule 00 :00 finding of by mouth lung field every 12 (twelve) hours for 7 days, THEN take 1 capsule (300 mg) every morning for 14 days. acetaminoph 2019- No Other 1000mg Take 2 MD en 08-03 nonspecific tablets Donnie rso (TYLENOL) 00:00: 05:59 abnormal (1,000 mg) n 500 mg 00 :00 finding of by mouth tablet lung field every 6 (six) hours for 10 days. senna-docus 2019- No Other 2{tbl} Take 2 MD ate 08-03 nonspecific tablets by A nderso (SENOKOT-S) 00:00: 05:59 abnormal mouth n 8.6 mg-50 00 :00 finding of twice mg tablet lung field daily for 10 days. levothyroxi 2019- No Hypothyroid 100ug Take 100 MD ne 08-02 ism, not mcg by Anderso (TIROSINT) 00:00: 00:00 otherwise mouth n 100 mcg cap 00 :00 specified daily for 30 days. levothyroxi 2019- No Hypothyroid 100ug Take 100 MD ne 100 mcg 08-02 ism, not mcg by An derso cap 00:00: 00:00 otherwise mouth n 00 :00 specified daily for 30 days. levothyroxi 2019- No Hypothyroid 100ug Take 100 MD ne 08-01 ism, not mcg by Anderso (TIROSINT) 00:00: 00:00 otherwise mouth n 100 mcg cap 00 :00 specified daily for 30 days. codeine-gua 2019- No Cough 5mL Take 5 mL MD iFENesin 07-30 by mouth Karthik o (CHERATUSSI 00:00: 00:00 every 6 n N AC) 10 00 :00 (six) mg-100 mg/5 hours as mL liquid needed for cough or congestion . ipratropium 2019- No Acute 3mL Inhale 1 MD -albuterol 07-23 04-21 bronchospas vial (3 Anderso (DUO-NEB) 00:00: 00:00 m mL) by n 0.5 mg-2.5 00 :00 nebulizati mg/3 mL on every 6 nebulizer (six) solution hours as needed for wheezing or shortness of breath. rosuvastati 2018-07 Yes 1{tbl} Take 1 MD n (CRESTOR) 2-16 tablet by And erso 10 mg 00:00: mouth n tablet 00 daily. metoprolol 2018-07- No 1{tbl} Take 1 MD succinate 09-02 tablet by Donnie rso (TOPROL XL) 00:00: 00:00 mouth n 25 mg 24 hr 00 :00 daily. tablet codeine-gua 2018-07- No Chronic 5mL Take 5 mL MD iFENesin 08-30 cough by mouth Serafin so (CHERATUSSI 00:00: 05:59 every 6 n N AC) 10 00 :00 (six) mg-100 mg/5 hours as mL liquid needed for cough or congestion for up to 30 days. albuterol 2018-07- No 1{ampul Take 1 MD (ACCUNEB) 2-12 12-11 e} ampule by Donnie rso 0.63 mg/3 03:52: 00:00 nebulizati n mL 54 :00 on every 6 nebulizer (six) solution hours as needed for wheezing. predniSONE 2018-07- No Other Take 2 MD (DELTASONE) 08-2817 nonspecific tablets Anderso 10 mg 00:00: 00:00 abnormal daily for n tablet 00 :00 finding of 14 days, lung field then 1 tablet daily for 14 days, and then stop. albuterol 2018-07- No Acute .63mg Inhale 1 M D (ACCUNEB) 08-28 bronchospas vial (0.63 Anderso 0.63 mg/3 00:00: 00:00 m mg) by n mL 00 :00 nebulizati nebulizer on every 6 solution (six) hours as needed for wheezing. ipratropium 2018-07- No Acute 3mL Inhale 1 MD -albuterol 08-28 bronchospas vial (3 Anderso (DUO-NEB) 00:00: 00:00 m mL) by n 0.5 mg-2.5 00 :00 nebulizati mg/3 mL on every 6 nebulizer (six) solution hours as needed for wheezing or shortness of breath for up to 30 days. levothyroxi 2018-07- No 100ug Take 100 MD ne 2-10 12-10 mcg by Anderso (TIROSINT) 21:50: 00:00 mouth n 100 mcg cap 02 :00 daily. liothyronin 2018-07- No 5ug Take 5 mcg MD e (CYTOMEL) 2-10 12-10 by mouth And erso 5 mcg 21:49: 00:00 daily. n tablet 36 :00 benzonatate 2018-07 Yes TAKE 1 MD (TESSALON) 2-03 CAPSULE BY And erso 100 mg 00:00: MOUTH FOUR n capsule 00 TIMES A DAY NEEDED FOR COUGH SYMBICORT 2018-07- No as needed. M D 160-4.5 08-20 08-14 Anderso mcg/actuati 00:00: 00:00 n on inhaler 00 :00 montelukast 2018-07- No TAKE 1 MD (SINGULAIR) 2- 04-21 TABLET BY An derso 10 mg 00:00: 00:00 MOUTH n tablet 00 :00 EVERY DAY albuterol 2018-07- No 1{puff} Q.5D Inhale [address] [facility] HFA 08-18 puff by [facility] - (VENTOLIN 10:39: 00:00 mouth via Me dical HFA) 90 49 :00 inhaler 2 Center mcg/actuati (two) on inhaler times daily. levothyroxi 2018-07- No Take by [facility] ne 08-18 mouth. [facility] - (TIROSINT) 10:39: 00:00 Medica l 100 mcg Cap 49 :00 Center metoclopram 2018-07 Yes 5mg Take [address] [facility] emmie 2-01 tablet (5 [facility] - (REGLAN) 5 00:00: mg total) Me dical MG tablet 00 by mouth 2 Cent er (two) times daily as needed (for headache). ketorolac 2018-07 Yes 10mg Take [address] [facility] (TORADOL) 2- tablet (10 [facility] - 10 mg 00:00: mg total) Medical tablet 00 by mouth 2 Center (two) times daily as needed for Pain (headache) . ipratropium 2018-07- No 3mL Take [address] [facility] -albuterol 08-18 by Florentino - (DUO-NEB) 00:00: 23:59 nebulizati M edical 0.5 mg-3 00 :00 on every 6 Cente r mg(2.5 mg (six) base)/3 mL hours as nebulizer needed for solution Wheezing for up to 30 days. ipratropium 2018-07- No 3mL Inhale 3 M D -albuterol 08-18 12-11 mL by Anderso (DUO-NEB) 00:00: 00:00 mouth. n 0.5 mg-2.5 00 :00 mg/3 mL nebulizer solution sulfamethox 2018-07 Yes 1{tbl} Take [address] azole-trime 1-30 tablet by Alex es - thoprim 02:09: mouth once Medi joanie (BACTRIM 04 . Center DS) 800-160 mg per tablet budesonide- 2018-07 Yes 2{puff} Q.5D Inhale [address] [facility] formoterol 1-29 puffs by Florentino - (SYMBICORT) 23:43: mouth via M edical 160-4.5 19 inhaler 2 Center mcg/actuati (two) on inhaler times daily. predniSONE 2018-07 Yes 10mg QD Take [address] (DELTASONE) 1-29 by mouth Luke [facility] - 10 MG 23:43: daily. Medical tablet 19 Center levothyroxi 2018-07 Yes a condition 100ug QD Take [address] [facility] ne 1-29 with low mcg by [facility] - (TIROSINT) 23:43: thyroid mouth Med ical 100 mcg Cap [address] levels magnesium 2018-07 Yes 400mg QD Take [address] [facility] [address] oxide 1-29 mg by [facility] - (MAG-OX) 23:43: mouth Medical 400 mg 18 daily. Center (241.3 mg magnesium) tablet coenzyme 2018-07 Yes 200mg QD Take [address] [facility] Q10 200 mg 1-29 mg by [facility] - capsule 23:43: mouth Medical 18 daily. Center propafenone 2018-07 Yes 225mg Q.5D Take [address] (RYTHMOL) 1-29 mg by [facility] - 225 MG 23:35: mouth 2 Medical tablet 41 (two) Center times daily. liothyronin 2018-07 Yes a condition 5ug QD Take [address] [facility] e (CYTOMEL) 08-15 with low by mouth [facility] - 5 MCG 23:35: thyroid daily. Medical tablet 41 hormone Center levels ergocalcife 2018-07 Yes [id number] QD Take [facility] rol - 50,000 [facility] - (VITAMIN 23:35: Units by Medic al D2) 50,000 41 mouth Center unit daily. capsule albuterol 2018-07- No Acute INHALE 1 MD (VENTOLIN 1-11 04-21 bronchospas TO 2 PUFFS Anderso HFA,PROAIR 00:00: 00:00 m BY MOUTH n HFA) 90 00 :00 EVERY 6 mcg/puff HOURS inhaler NEEDED FOR WHEEZING/O R SHORTNESS OF BREATH predniSONE 2018-07- No Other Take 6 MD (DELTASONE) 0-30 12-11 nonspecific tablets Anderso 10 mg 00:00: 00:00 abnormal once a day n tablet 00 :00 finding of for 14 lung field days. Then take 4 tablets once a day for 28 days. sulfamethox 2018-07- No Other One Tablet MD azole-trime 0-30 12-10 nonspecific three Anderso thoprim 00:00: 00:00 abnormal times a n (BACTRIM 00 :00 finding of week MWF DS) 800 lung field for 6 mg-160 mg weeks per tablet amoxicillin 2018-07- No Cough 875mg Take 1 M D -clavulanat 0-16 10-31 tablet Serafin so e 00:00: 00:00 (875 mg) n (AUGMENTIN) 00 :00 by mouth 875 mg-125 twice mg per daily. tablet TIROSINT 2018-07- No Hypothyroid 1{capsu Take 1 MD 100 mcg cap 009-05 ism, not le} capsule by Anderso 00:00: 00:00 otherwise mouth n 00 :00 specified daily. Note change in dose albuterol 2018- No bronchospas 1{puff} Inhale 1-2 MD (PROAIR 04-09 11-10 tic puffs by Anderso HFA) 90 00:00: 00:00 pulmonary mouth n mcg/puff 00 :00 disease every 6 inhaler (six) hours as needed for wheezing or shortness of breath. TIROSINT 2018- No Hypothyroid 1{capsu Take 1 MD 125 mcg cap 804-18 ism, not le} capsule by Anderso 00:00: 00:00 otherwise mouth n 00 :00 specified every morning. This will replace levothyrox ine. Continue liothyroni ne (Cytomel). liothyronin 2019- No Other 5ug Take 1 MD e (CYTOMEL) 10-02 specified tablet (5 Anderso 5 mcg 00:00: 00:00 hypothyroid mcg) by n tablet 00 :00 ism mouth daily. coenzyme Yes 100mg QD Take 100 [place] Q10 (CO 7-03 mg by [facility] Q-10) 100 13:50: mouth st mg capsule 13 daily. cholecalcif Yes 4000U Take 4,000 Pillai rosangela, 7- Units by [facility] vitamin D3, 13:50: mouth. st (VITAMIN 13 D3) 4,000 unit capsule melatonin 3 Yes Take by Bandar ston mg tablet 7-03 mouth. [facility] 13:50: st 13 magnesium Yes 64mg QD Take 64 mg Son garcia chloride 64 7-03 by mouth Meth lianet mg 13:50: daily. st tablet,janee 13 yed release (DR/EC) DR tablet PROGESTERON Yes 25mg Take 25 mg Pillai E 7-03 by mouth. [facility] MICRONIZED 13:50: [address] ORAL 13 a.m 1 tab in evening UNABLE TO Yes testestero [place] FIND 7- ne SR. 2 [facility] 13:50: mg [address] 13 in a.m. 2 tabs in the evening cranberry Yes Take by Flash on fruit 01-17 mouth. [facility] extract 13:50: st (CRANBERRY 13 ORAL) INOSITOL Yes Take by Saadto n ORAL 01-17 mouth. [facility]i 13:50: st 13 5-hydroxytr Yes Take by Bandar vanessa yptophan, 01-17 mouth. [facility] 5-HTP, 13:50: st (5-HTP 13 ORAL) PREGNENOLON Yes Naman n E, BULK, 01-17 [facility] MISC 13:50: st 13 prasterone, Yes Take by Bandar vanessa DHEA, (DHEA 01-17 mouth. Method i ORAL) 13:50: st 13 UNABLE TO 2017- Yes cortisol [place] FIND 01-17 [facility] 13:50: st 13 UNABLE TO Yes biest oral [place] FIND 01-17 [facility] 13:50: st 13 RYTHMOL SR Yes 225mg Q.5D Take 225 [place] 225 mg 12 5-10 mg by [facility] hr capsule 00:00: mouth 2 st 00 (two) times a day. thyroid,por Yes 190mg QD Take 190 [place] (ARMOUR 5-10 mg by [facility] THYROID 00:00: mouth st ORAL) 00 daily. RYTHMOL SR Yes TAKE ONE MD 225 mg 12 5-10 CAPSULE BY Donnie rso hr capsule 00:00: MOUTH n 00 TWICE A DAY Vital Signs Vital Name Observation Time Observation Value Comments Source WEIGHT 2020-01-17 00:00:00 84.3 kg WEIGHT 2020-01-17 00:00:00 84.3 kg HEIGHT 2020-01-04 00:00:00 166 cm WEIGHT 2020-01-04 00:00:00 83.8 kg HEIGHT 2020-01-04 00:00:00 166 cm WEIGHT 2020-01-04 00:00:00 83.8 kg Systolic blood 2020-02-29 16:36:36 106 mm[Hg] pressure Diastolic blood 2020-02-29 16:36:36 72 mm[Hg] MD Eliz stroudson pressure Heart rate 2020-02-29 16:36:36 73 /min MD Serafin collins Body temperature 2020-02-29 16:36:36 36.61 Maci MD Natan banuelos Respiratory rate 2020-02-29 16:36:36 18 /min MD Natan banuelos Oxygen saturation in 2020-02-29 16:36:36 96 /min MD Pickett Arterial blood by Pulse oximetry Body height 2020-02-28 07:07:00 162 cm MD Serafin collins Body weight 2020-02-28 07:07:00 78.3 kg MD Serafin collins BMI 2020-02-28 07:07:00 29.83 kg/m2 MD Serafin collins Heart rate 2019-06-17 08:30:00 58 /min [facility] Respiratory rate 2019-06-17 08:30:00 20 /min [facility] Oxygen saturation in 2019-06-17 08:30:00 99 /min [facility] Arterial blood by Medical Ce nter Pulse oximetry Systolic blood 2019-06-17 07:22:00 147 mm[Hg] [facility] Diastolic blood 2019-06-17 07:22:00 69 mm[Hg] [facility] Body temperature 2019-06-17 07:22:00 36.72 Maci [facility] Body weight Measured 2019-06-17 07:22:00 84.5 kg [facility] BMI 2019-06-17 07:22:00 30.07 kg/m2 [facility] Body height 2019-06-15 23:25:[address] [facility] Procedures Procedure Date / Time Performing Clinician Source Performed HOME O2 EVAL 2020-02-29 Delilah Maguire MD 15:38:48 VANCOMYCIN LEVEL TROUGH 2020-02-29 Chloé Lockett MD Serafin son 14:01:00 BASIC METABOLIC PANEL, 2020-02-29 Delilah Maguire MD Serafinrubens collins CALCIUM TOTAL 09:06:00 COMPLETE BLOOD COUNT W/ 2020-02-29 Delilah Maguire MD Donnie rson DIFFERENTIAL 09:06:00 MAGNESIUM LEVEL 2020-02-29 Delilah Maguire MD 09:06:00 PHOSPHORUS LEVEL 2020-02-29 Delilah Maguire MD 09:06:00 CARDIAC PANEL 2020-02-29 Delilah Maguire MD 09:06:00 NT PRO BNP 2020-02-29 Peggy Knox MD 09:06:00 GLUCOSE LEVEL 2020-02-29 Delilah Maguire MD 09:06:00 BLOOD UREA NITROGEN 2020-02-29 Delilah Maguire MD 09:06:00 ELECTROLYTE PANEL 2020-02-29 Delilah Maguire MD 09:06:00 SERUM CREATININE 2020-02-29 Delilah Maguire MD 09:06:00 .GLOMERULAR FILTRATION RATE 2020-02-29 Delilah Maguire MD 09:06:00 CALCIUM LEVEL TOTAL 2020-02-29 Delilah Maguire MD 09:06:00 Results CBC 2020-02-29 Delilah Maguire MD 09:06:00 MANUAL DIFFERENTIAL 2020-02-29 Delilah Maguire MD 09:06:00 US LEG VENOUS DOPPLER 2020-02-28 Delilah Maguire MD on BILATERAL 20:33:55 CARDIAC PANEL 2020-02-28 Delilah Maguire MD 19:00:00 BASIC METABOLIC PANEL, 2020-02-28 Delilah Maguire MD Serafin son CALCIUM TOTAL 15:57:00 COMPLETE BLOOD COUNT W/ 2020-02-28 Delilah Maguire MD Donnie rson DIFFERENTIAL 15:57:00 MAGNESIUM LEVEL 2020-02-28 Delilah Maguire MD 15:57:00 PHOSPHORUS LEVEL 2020-02-28 Delilah Maguire MD 15:57:00 GLUCOSE LEVEL 2020-02-28 Delilah Maguire MD 15:57:00 BLOOD UREA NITROGEN 2020-02-28 Delilah Maguire MD 15:57:00 ELECTROLYTE PANEL 2020-02-28 Delilah Maguire MD 15:57:00 SERUM CREATININE 2020-02-28 Delilah Maguire MD 15:57:00 .GLOMERULAR FILTRATION RATE 2020-02-28 Delilah Maguire MD 15:57:00 CALCIUM LEVEL TOTAL 2020-02-28 Delilah Maguire MD 15:57:00 Results CBC 2020-02-28 Delilah Maguire MD 15:57:00 MANUAL DIFFERENTIAL 2020-02-28 Delilah Maguire MD 15:57:00 ECHOCARDIOGRAM 2D COMPLETE [facility]-02-[facility] derson 15:41:15 [facility]IN T [facility] CHEST PULMONARY EMBOLISM W 2020-02-28 [facility], Kurtis Pickett CONTRAST 04:18:00 POC TROPONIN I 2020-02-28 [facility], Kurtis Pickett 01:25:00 RESPIRATORY VIRAL PANEL, 2020-02-28 [facility] Fields rson NASOPHARYNGEAL SWAB 01:12:00 HC COVID19 AUTOMATED PCR 2020-02-28 [facility] rson 01:12:00 RESPIRATORY PCR PANEL, RESOLUTE PROFESSIONAL 2020-02-28 [facility], Kurtis PIÑA And erson SWAB 01:12:00 RESPIRATORY PCR PANEL PATH 2020-02-28 [facility] derson REVIEW 01:12:00 BLOODCULTURE 2020-02-28 [facility] 01:06:00 NT PRO BNP 2020-02-[facility] 01:06:00 COMPREHENSIVE METABOLIC PANEL 2020-02-28 [facility] 01:06:00 MAGNESIUM LEVEL 2020-02-28 [facility] 01:06:00 PHOSPHORUS LEVEL 2020-02-28 [facility] 01:06:00 CREATINE KINASE 2020-02-28 [facility] 01:06:00 CKMB 2020-02-28 [facility] 01:06:00 COMPLETE BLOOD COUNT W/ 2020-02-28 [facility], Kurtis PIÑA Serafin son DIFFERENTIAL 01:06:00 PROTHROMBIN TIME 2020-02-28 [facility] 01:06:00 PARTIAL THROMBOPLASTIN TIME 2020-02-28 [facility] nderson 01:06:00 TYPE AND SCREEN 2020-02-28 [facility] 01:06:00 ABORH 2020-02-28 [facility] 01:06:00 ANTIBODY SCREEN 2020-02-28 [facility] lopez MD 01:06:00 GLUCOSE LEVEL 2020-02-28 [facility] Pickett 01:06:00 BLOOD UREA NITROGEN 2020-02-28 [facility] Pickett 01:06:00 ELECTROLYTE PANEL 2020-02-28 [facility] 01:06:00 SERUM CREATININE 2020-02-28 Kurtis Mcneill MD 01:06:00 .GLOMERULAR FILTRATION RATE 2020-02-28 Kurtis Mcneill MD nderson 01:06:00 CALCIUM LEVEL TOTAL 2020-02-28 [facility], Kurtis Pickett 01:06:00 ALBUMIN LEVEL 2020-02-28 [facility], Kurtis Pickett 01:06:00 ALKALINE PHOSPHATASE 2020-02-28 [facility] 01:06:00 ALANINE AMINOTRANSFERASE 2020-02-28 [facility] Lubine rson 01:06:00 ASPARTATE AMINOTRANSFERASE 2020-02-28 [facility], Kurtis Wellington derson 01:06:00 TOTAL PROTEIN 2020-02-28 [facility] 01:06:00 FRACTIONATED BILIRUBIN 2020-02-28 [facility], Kurtis PIÑA Karthik on 01:06:00 Results CBC 2020-02-28 [facility] 01:06:00 MANUAL DIFFERENTIAL 2020-02-28 Kurtis Mcneill MD 01:06:00 TROPONIN T 2020-02-28 [facility] 01:06:00 CLOT EXPIRATION DATE 2020-02-28 [facility] 01:06:00 TMP INTERPRETATION ANTIBODY 2020-02-28 Kurtis Mcneill MD nderson SCREEN NEGATIVE 01:06:00 EKG, 12-LEAD (PORTABLE) 2020-02-28 [facility] Serafin son 00:00:00 XR CHEST 2 VW 2020-02-27 Felix Vaz MD 20:41:35 COMPLETE BLOOD COUNT W/ 2020-02-27 Felix Vaz MD derson DIFFERENTIAL 20:16:00 TYPE AND SCREEN 2020-02-27 Felix Vaz MD 20:16:00 MAGNESIUM LEVEL 2020-02-27 Felix Vaz MD 20:16:00 ELECTROLYTE PANEL 2020-02-27 Felix Vaz MD 20:16:00 Results CBC 2020-02-27 Felix Vaz MD 20:16:00 MANUAL DIFFERENTIAL 2020-02-27 Felix Vaz MD Karthik on 20:16:00 ABORH 2020-02-27 Felix Vaz MD 20:16:00 ANTIBODY SCREEN 2020-02-27 Felix Vaz MD 20:16:00 CLOT EXPIRATION DATE 2020-02-27 Felix Vaz MD Serafin son 20:16:00 TMP INTERPRETATION ANTIBODY 2020-02-27 Felix Vaz SCREEN NEGATIVE 20:16:00 EKG, 12-LEAD (SCHEDULED) 2020-02-27 Felix Vaz MD nderson 00:00:00 PHOSPHORUS LEVEL 2020-02-21 Felix Vaz MD 14:46:00 AMYLASE LEVEL 2020-02-21 Felix Vaz MD 13:03:00 COMPLETE BLOOD COUNT W/ 2020-02-21 Felix Vaz MD derson DIFFERENTIAL 13:03:00 COMPREHENSIVE METABOLIC PANEL 2020-02-21 Felix Vaz MD 13:03:00 FREE THYROXINE 2020-02-21 Felix Vaz MD 13:03:00 LIPASE LEVEL 2020-02-21 Felix Vaz MD 13:03:00 MAGNESIUM LEVEL 2020-02-21 Felix Vaz MD 13:03:00 PHOSPHORUS LEVEL 2020-02-21 Felix Vaz MD 13:03:00 THYROID STIMULATING HORMONE 2020-02-21 Felix Vaz 13:03:00 Results CBC 2020-02-21 Felix Vaz MD 13:03:00 MANUAL DIFFERENTIAL 2020-02-21 Felix Vaz MD on 13:03:00 GLUCOSE LEVEL 2020-02-21 Felix Vaz MD 13:03:00 ELECTROLYTE PANEL 2020-02-21 Felix Vaz MD 13:03:00 SERUM CREATININE 2020-02-21 Felix Vaz MD 13:03:00 .GLOMERULAR FILTRATION RATE 2020-02-21 Felix Vaz 13:03:00 CALCIUM LEVEL TOTAL 2020-02-21 Felix Vaz MD on 13:03:00 ALBUMIN LEVEL 2020-02-21 Felix Vaz MD 13:03:00 ALKALINE PHOSPHATASE 2020-02-21 Felix Vaz MD Serafin son 13:03:00 ALANINE AMINOTRANSFERASE 2020-02-21 Felix Vaz MD A nderson 13:03:00 ASPARTATE AMINOTRANSFERASE 2020-02-21 Felix Vaz MD 13:03:00 TOTAL PROTEIN 2020-02-21 Felix Vaz MD 13:03:00 FRACTIONATED BILIRUBIN 2020-02-21 Felix Vaz MD And erson 13:03:00 BLOOD UREA NITROGEN 2020-02-21 Felix Vaz MD Karthik on 13:03:00 OCT, RETINA - OU - BOTH EYES 2020-02-19 Erum Currie MD 15:37:02 FUNDUS PHOTOS - OU - BOTH 2020-02-19 Erum Currie MD And erson EYES 14:50:21 MRI THORACIC LUMBAR SPINE W 2020-02-15 Grayson Segovia MD WO CONTRAST 18:30:00 COMPLETE BLOOD COUNT W/ 2020-02-14 Little Snyder MD And erson DIFFERENTIAL 13:33:00 COMPREHENSIVE METABOLIC PANEL 2020-02-14 Little Snyder MD 13:33:00 MAGNESIUM LEVEL 2020-02-14 Little Snyder MD 13:33:00 PHOSPHORUS LEVEL 2020-02-14 Little Snyder MD 13:33:00 HEMOGLOBIN A1C 2020-02-14 Little Snyder MD 13:33:00 VITAMIN D 25 HYDROXY LEVEL 2020-02-14 Little Snyder MD 13:33:00 Results CBC 2020-02-14 Little Snyder MD 13:33:00 MANUAL DIFFERENTIAL 2020-02-14 Little Snyder MD Anderso n 13:33:00 GLUCOSE LEVEL 2020-02-14 Little Snyder MD 13:33:00 ELECTROLYTE PANEL 2020-02-14 Little Snyder MD 13:33:00 SERUM CREATININE 2020-02-14 Little Snyder MD 13:33:00 .GLOMERULAR FILTRATION RATE 2020-02-14 Little Snyder MD 13:33:00 CALCIUM LEVEL TOTAL 2020-02-14 Little Snyder MD Anderso n 13:33:00 ALBUMIN LEVEL 2020-02-14 Little Snyder MD 13:33:00 ALKALINE PHOSPHATASE 2020-02-14 Little Snyder MD on 13:33:00 ALANINE AMINOTRANSFERASE 2020-02-14 Little Snyder MDson 13:33:00 ASPARTATE AMINOTRANSFERASE 2020-02-14 Little Snyder MD 13:33:00 TOTAL PROTEIN 2020-02-14 Little Snyder MD 13:33:00 FRACTIONATED BILIRUBIN 2020-02-14 Little Snyder MD Donnie rson 13:33:00 BLOOD UREA NITROGEN 2020-02-14 Little Snyder MD Andbishnu n 13:33:00 MRI THORACIC SPINE WO 2020-02-11 Evelin Wheeler MD CONTRAST 18:16:05 CT CHEST ABDOMEN PELVIS W 2020-02-11 Little Snyder MD nderson CONTRAST 15:20:00 POC CREATININE 2020-02-11 Little Snyder MD 14:14:00 AMYLASE LEVEL 2020-02-01 Felix Vaz MD 14:27:00 COMPLETE BLOOD COUNT W/ 2020-02-01 Felix Vaz MDson DIFFERENTIAL 14:27:00 COMPREHENSIVE METABOLIC PANEL 2020-02-01 Felix Vaz MD 14:27:00 FREE THYROXINE 2020-02-01 Felix Vaz MD 14:27:00 LACTATE DEHYDROGENASE 2020-02-01 Felix Vaz MD Donnie rson 14:27:00 LIPASE LEVEL 2020-02-01 Felix Vaz MD 14:27:00 MAGNESIUM LEVEL 2020-02-01 Felix Vaz MD 14:27:00 PHOSPHORUS LEVEL 2020-02-01 Felix Vaz MD 14:27:00 THYROID STIMULATING HORMONE 2020-02-01 Felix Vaz 14:27:00 Results CBC 2020-02-01 Felix Vaz MD 14:27:00 MANUAL DIFFERENTIAL 2020-02-01 Felix Vaz MD on 14:27:00 GLUCOSE LEVEL 2020-02-01 Felix Vaz MD 14:27:00 BLOOD UREA NITROGEN 2020-02-01 Felix Vaz MD on 14:27:00 ELECTROLYTE PANEL 2020-02-01 Felix Vaz MD 14:27:00 SERUM CREATININE 2020-02-01 Felix Vaz MD 14:27:00 .GLOMERULAR FILTRATION RATE 2020-02-01 Felix Vaz 14:27:00 CALCIUM LEVEL TOTAL 2020-02-01 Felix Vaz MD Karthik on 14:27:00 ALBUMIN LEVEL 2020-02-01 Felix Vaz MD 14:27:00 ALKALINE PHOSPHATASE 2020-02-01 Felix Vaz MD Serafin son 14:27:00 ALANINE AMINOTRANSFERASE 2020-02-01 Felix Vaz MD nderson 14:27:00 ASPARTATE AMINOTRANSFERASE 2020-02-01 Felix Vaz MD 14:27:00 TOTAL PROTEIN 2020-02-01 Felix Vaz MD 14:27:00 FRACTIONATED BILIRUBIN 2020-02-01 Felix Vaz MD And erson 14:27:[address] GUIDED RADIOFREQUENCY 2020-01-24 Felix Vaz ABLATION BONE/SOFT TISSUE 15:25:19 IR GUIDED KYPHOPLASTY LUMBAR 2020-01-24 Felix Vaz MD 15:25:19 HC COVID19 AUTOMATED PCR 2020-01-22 Angelina Barajas MD nderson 15:30:00 EKG, 12-LEAD (SCHEDULED) 2020-01-22 Mike Mueller MD Donnie rson 00:00:00 COMPLETE BLOOD COUNT W/ 2020-01-21 Marii Knowles MD An derson DIFFERENTIAL 18:44:00 PROTHROMBIN TIME 2020-01-21 Marii Knowles MD 18:44:00 TYPE AND SCREEN 2020-01-21 Marii Knowles MD 18:44:00 SERUM CREATININE 2020-01-21 Marii Knowles MD 18:44:00 BLOOD UREA NITROGEN 2020-01-21 Marii Knowles MD Karthik on 18:44:00 CARBON DIOXIDE LEVEL 2020-01-21 Marii Knowles MD Serafin son 18:44:00 CHLORIDE LEVEL 2020-01-21 Marii Knowles MD 18:44:00 SODIUM LEVEL 2020-01-21 Marii Knowles MD 18:44:00 POTASSIUM LEVEL 2020-01-21 Marii Knowles MD 18:44:00 GLUCOSE, RANDOM 2020-01-21 Marii Knowles MD 18:44:00 Results CBC 2020-01-21 Marii Knowles MD 18:44:00 MANUAL DIFFERENTIAL 2020-01-21 Marii Knowles MD Karthik on 18:44:00 SERUM CREATININE 2020-01-21 Marii Knowles MD 18:44:00 .GLOMERULAR FILTRATION RATE 2020-01-21 Marii Knowles 18:44:00 ABORH 2020-01-21 Marii Knowles MD 18:44:00 ANTIBODY SCREEN 2020-01-21 Marii Knowles MD 18:44:00 ANION GAP 2020-01-21 Marii Knowles MD 18:44:00 CLOT EXPIRATION DATE 2020-01-21 Marii Knowles MD Serafin son 18:44:00 TMP INTERPRETATION ANTIBODY 2020-01-21 Marii Knowles SCREEN NEGATIVE 18:44:00 MRI SHOULDER LEFT W WO 2020-01-21 Todd Lam MD nderson CONTRAST 17:12:55 MRI BRAIN W WO CONTRAST 2020-01-10 Felix Vaz MD 20:28:00 ECHOCARDIOGRAM 2D COMPLETE 2020-01-10 Felix Vaz MD 19:14:23 SPIROMETRY W/O DILATORS, DLCO 2020-01-09 Felix Vaz MD AND BODY PLETHSMOGRAPHIC LUNG 12:51:56 VOLUMES URINE CULTURE 2020-01-02 Felix Vaz MD 17:22:00 AMYLASE LEVEL 2020-01-02 Felix Vaz MD 17:22:00 COMPLETE BLOOD COUNT W/ 2020-01-02 Felix Vaz MD DIFFERENTIAL 17:22:00 COMPREHENSIVE METABOLIC PANEL 2020-01-02 Felix Vaz MD 17:22:00 FREE THYROXINE 2020-01-02 Felix Vaz MD 17:22:00 GUA 2020-01-02 Felix Vaz MD 17:22:00 LACTATE DEHYDROGENASE 2020-01-02 Felix Vaz MD Donnie rson 17:22:00 LIPASE LEVEL 2020-01-02 Felix Vaz MD 17:22:00 MAGNESIUM LEVEL 2020-01-02 Felix Vaz MD 17:22:00 PHOSPHORUS LEVEL 2020-01-02 Felix Vaz MD 17:22:00 THYROID STIMULATING HORMONE 2020-01-02 Felix Vaz 17:22:00 Results CBC 2020-01-02 Felix Vaz MD 17:22:00 MANUAL DIFFERENTIAL 2020-01-02 Felix Vaz MD on 17:22:00 GLUCOSE LEVEL 2020-01-02 Felix Vaz MD 17:22:00 BLOOD UREA NITROGEN 2020-01-02 Felix Vaz MD Karthik on 17:22:00 ELECTROLYTE PANEL 2020-01-02 Felix Vaz MD 17:22:00 SERUM CREATININE 2020-01-02 Felix Vaz MD 17:22:00 .GLOMERULAR FILTRATION RATE 2020-01-02 Felix Vaz 17:22:00 CALCIUM LEVEL TOTAL 2020-01-02 Felix Vaz MD on 17:22:00 ALBUMIN LEVEL 2020-01-02 Felix Vaz MD 17:22:00 ALKALINE PHOSPHATASE 2020-01-02 Felix Vaz MD Serafin son 17:22:00 ALANINE AMINOTRANSFERASE 2020-01-02 Felix Vaz MD A nderson 17:22:00 ASPARTATE AMINOTRANSFERASE 2020-01-02 Felix Vaz MD 17:22:00 TOTAL PROTEIN 2020-01-02 Felix Vaz MD 17:22:00 FRACTIONATED BILIRUBIN 2020-01-02 Felix Vaz MD And erson 17:22:00 GUA MICROSCOPIC 2020-01-02 Felix Vaz MD 17:22:00 XR HUMERUS 2 VIEWS MINIMUM 2020-01-02 Little Snyder MD BILATERAL 16:55:27 XR CLAVICLE BILATERAL 2020-01-02 Little Snyder MD Serafin son 16:55:16 XR FEMUR 2 VW RIGHT 2020-01-02 Felix Vaz MD on 16:55:00 HC COVID19 AUTOMATED PCR 2020-01-02 Sally Montes MD 14:47:00 MRI CERVICAL THORACIC LUMBAR 2019-12-31 Godfrey Lockett MD SPINE W WO CONTRAST 20:13:09 NM BONE SCAN WHOLE BODY 2019-12-31 Felix Vaz MD 15:57:55 CT CHEST ABDOMEN PELVIS W 2019-12-20 Shannen Saldana MD CONTRAST 19:57:07 CMV QUALITATIVE, FECAL 2019-12-19 Little Snyder MD rson 17:27:00 STOOL CULTURE 2019-12-19 Little Snyder MD 17:27:00 CALPROTECTIN STOOL 2019-12-19 Little Snyder MD 17:27:00 LACTOFERRIN DETECTION 2019-12-19 Little Snyder MD Serafin son 17:27:00 URINE CULTURE 2019-12-18 Little Snyder MD 19:39:00 ADRENOCORTICOTROPIC HORMONE 2019-12-18 Little Snyder MD 19:39:00 CARDIAC PANEL 2019-12-18 Little Snyder MD 19:39:00 C REACTIVE PROTEIN 2019-12-18 Little Snyder MD 19:39:00 CORTISOL 2019-12-18 Little Snyder MD 19:39:00 CYTOKINE PANEL 3 2019-12-18 Little Snyder MD 19:39:00 SEDIMENTATION RATE 2019-12-18 Little Snyder MD NON-AUTOMATED 19:39:00 TOTAL T3 2019-12-18 Little Snyder MD 19:39:00 T-SPOT TUBERCULOSIS 2019-12-18 Little Snyder MD Anderso n 19:39:00 HEPATITIS B CORE ANTIBODY 2019-12-18 Little Snyder MD nderson 19:39:00 HEPATITIS C VIRUS ANTIBODY 2019-12-18 Little Snyder MD 19:39:00 CYTOKINE PANEL 3 FINAL REPORT 2019-12-18 Little Snyder MD 19:39:00 TMP HBCAB INTERP 2019-12-18 Little Snyder MD 19:39:00 TMP HCVAB INTERP 2019-12-18 Little Snyder MD 19:39:[address] CORTES PROT ELEC PATH 2019-12-18 Little Snyder MD nderson REVIEW 19:39:[address] CORTES PRIMITIVO PATH REVIEW 2019-12-18 Little Snyder MD 19:39:00 NT PRO BNP 2019-12-18 Little Snyder MD 18:55:00 URINALYSIS WITH MICROSCOPIC 2019-12-18 Little Snyder MD IF INDICATED 15:25:00 URINALYSIS MICROSCOPIC 2019-12-18 Little Snyder MD rson 15:25:00 AMYLASE LEVEL 2019-12-18 Little Snyder MD 14:13:00 COMPLETE BLOOD COUNT W/ 2019-12-18 Little Snyder MD And erson DIFFERENTIAL 14:13:00 COMPREHENSIVE METABOLIC PANEL 2019-12-18 Little Snyder MD 14:13:00 FREE THYROXINE 2019-12-18 Little Snyder MD 14:13:00 LIPASE LEVEL 2019-12-18 Little Snyder MD 14:13:00 MAGNESIUM LEVEL 2019-12-18 Little Snyder MD 14:13:00 PHOSPHORUS LEVEL 2019-12-18 Little Snyder MD 14:13:00 THYROID STIMULATING HORMONE 2019-12-18 Little Snyder MD 14:13:00 Results CBC 2019-12-18 Little Snyder MD 14:13:00 MANUAL DIFFERENTIAL 2019-12-18 Little Snyder MD Andbenitoo n 14:13:00 GLUCOSE LEVEL 2019-12-18 Little Snyder MD 14:13:00 BLOOD UREA NITROGEN 2019-12-18 Little Snyder MD Anderso n 14:13:00 ELECTROLYTE PANEL 2019-12-18 Little Snyder MD 14:13:00 SERUM CREATININE 2019-12-18 Little Snyder MD 14:13:00 .GLOMERULAR FILTRATION RATE 2019-12-18 Little Snyder MD 14:13:00 CALCIUM LEVEL TOTAL 2019-12-18 Little nSyder MD Andbenitoo n 14:13:00 ALBUMIN LEVEL 2019-12-18 Little Snyder MD 14:13:00 ALKALINE PHOSPHATASE 2019-12-18 Little Snyder MD Karthik on 14:13:00 ALANINE AMINOTRANSFERASE 2019-12-18 Little Snyder MD 14:13:00 ASPARTATE AMINOTRANSFERASE 2019-12-18 Little Snyder MD 14:13:00 TOTAL PROTEIN 2019-12-18 Little Snyder MD 14:13:00 FRACTIONATED BILIRUBIN 2019-12-18 Little Snyder MD Donnie rson 14:13:00 COMPLETE BLOOD COUNT W/ 2019-11-27 Kimberly Yi MD Serafin son DIFFERENTIAL 13:32:00 COMPREHENSIVE METABOLIC PANEL 2019-11-27 Kimberly Yi MD 13:32:00 FREE THYROXINE 2019-11-27 Kimberly Yi MD 13:32:00 MAGNESIUM LEVEL 2019-11-27 Kimberly Yi MD 13:32:00 THYROID STIMULATING HORMONE 2019-11-27 Kimberly Yi MD nderson 13:32:00 Results CBC 2019-11-27 Kimberly Yi MD 13:32:00 MANUAL DIFFERENTIAL 2019-11-27 Kimberly Yi MD 13:32:00 GLUCOSE LEVEL 2019-11-27 Kimberly Yi MD 13:32:00 BLOOD UREA NITROGEN 2019-11-27 Kimberly Yi MD 13:32:00 ELECTROLYTE PANEL 2019-11-27 Kimberly Yi MD 13:32:00 SERUM CREATININE 2019-11-27 Kimberly Yi MD 13:32:00 .GLOMERULAR FILTRATION RATE 2019-11-27 Kimberly Yi MD nderson 13:32:00 CALCIUM LEVEL TOTAL 2019-11-27 Kimberly Yi MD 13:32:00 ALBUMIN LEVEL 2019-11-27 Kimberly Yi MD 13:32:00 ALKALINE PHOSPHATASE 2019-11-27 Kimberly Yi MD 13:32:00 ALANINE AMINOTRANSFERASE 2019-11-27 Kimberly Yi MD Donnie rson 13:32:00 ASPARTATE AMINOTRANSFERASE 2019-11-27 Kimberly Yi MD 13:32:00 TOTAL PROTEIN 2019-11-27 Kimberly Yi MD 13:32:00 FRACTIONATED BILIRUBIN 2019-11-27 Kimberly Yi MD Karthik on 13:32:00 AMYLASE LEVEL 2019-11-06 Little Snyder MD 13:22:00 COMPLETE BLOOD COUNT W/ 2019-11-06 Little Snyder MD And erson DIFFERENTIAL 13:22:00 COMPREHENSIVE METABOLIC PANEL 2019-11-06 Little Snyder MD 13:22:00 FREE THYROXINE 2019-11-06 Little Snyder MD 13:22:00 LIPASE LEVEL 2019-11-06 Little Snyder MD 13:22:00 MAGNESIUM LEVEL 2019-11-06 Little Snyder MD 13:22:00 PHOSPHORUS LEVEL 2019-11-06 Little Snyder MD 13:22:00 THYROID STIMULATING HORMONE 2019-11-06 Little Snyder MD 13:22:00 Results CBC 2019-11-06 Little Snyder MD 13:22:00 MANUAL DIFFERENTIAL 2019-11-06 Little Snyder MD Anderso n 13:22:00 GLUCOSE LEVEL 2019-11-06 Little Snyder MD 13:22:00 BLOOD UREA NITROGEN 2019-11-06 Little Snyder MD n 13:22:00 ELECTROLYTE PANEL 2019-11-06 Little Snyder MD 13:22:00 SERUM CREATININE 2019-11-06 Little Snyder MD 13:22:00 .GLOMERULAR FILTRATION RATE 2019-11-06 Little Snyder MD 13:22:00 CALCIUM LEVEL TOTAL 2019-11-06 Little Snyder MDo n 13:22:00 ALBUMIN LEVEL 2019-11-06 Little Snyder MD 13:22:00 ALKALINE PHOSPHATASE 2019-11-06 Little Snyder MD Karthik on 13:22:00 ALANINE AMINOTRANSFERASE 2019-11-06 Little Snyder MDson 13:22:00 ASPARTATE AMINOTRANSFERASE 2019-11-06 Little Snyder MD 13:22:00 TOTAL PROTEIN 2019-11-06 Little Snyder MD 13:22:00 FRACTIONATED BILIRUBIN 2019-11-06 Little Snyder MD Donnie rson 13:22:00 COMPREHENSIVE METABOLIC PANEL 2019-10-16 Tamica Campbell MD 16:09:00 COMPLETE BLOOD COUNT W/ 2019-10-16 JulianaazolTamica gama MD Serafin son DIFFERENTIAL 16:09:00 LACTATE DEHYDROGENASE 2019-10-16 JulianaazolTamica gama MDo n 16:09:00 MAGNESIUM LEVEL 2019-10-16 JulianaazolTamica gama MD 16:09:00 PHOSPHORUS LEVEL 2019-10-16 AdriazolTamica gama MD 16:09:00 THYROID STIMULATING HORMONE 2019-10-16 JulianaazolTamica gama MD nderson 16:09:00 FREE THYROXINE 2019-10-16 JulianaazolTamica gama MD 16:09:00 AMYLASE LEVEL 2019-10-16 AdriazolTamica gama MD 16:09:00 LIPASE LEVEL 2019-10-16 JulianaazolTamica gama MD 16:09:00 GLUCOSE LEVEL 2019-10-16 JulianaazolTamica gama MD 16:09:00 BLOOD UREA NITROGEN 2019-10-16 AdriazolTamica gama MD 16:09:00 ELECTROLYTE PANEL 2019-10-16 Adriazola, Tamica Pickett 16:09:00 SERUM CREATININE 2019-10-16 Adriazola, Tamica Pickett 16:09:00 .GLOMERULAR FILTRATION RATE 2019-10-16 Shannan, Tamica hernadezrson 16:09:00 CALCIUM LEVEL TOTAL 2019-10-16 Adriazola, Tamica Pickett 16:09:00 ALBUMIN LEVEL 2019-10-16 Adriazola, Tamica Pickett 16:09:00 ALKALINE PHOSPHATASE 2019-10-16 Adriazola, Tamica Pickett 16:09:00 ALANINE AMINOTRANSFERASE 2019-10-16 Adriazola, Tamica Lubine rson 16:09:00 ASPARTATE AMINOTRANSFERASE 2019-10-16 Adriazola, Tamica Wellington derson 16:09:00 TOTAL PROTEIN 2019-10-16 Adriazola, Tamica Pickett 16:09:00 FRACTIONATED BILIRUBIN 2019-10-16 Adriazola, Tamica Angeles on 16:09:00 Results CBC 2019-10-16 Julianaazolnatan, Tamica Pickett 16:09:00 MANUAL DIFFERENTIAL 2019-10-16 Adriazola, Tamica Pickett 16:09:00 CT CHEST ABDOMEN PELVIS W WO 2019-10-11 Pratima Landeros MD CONTRAST UROGRAM 23:18:29 COMPLETE BLOOD COUNT W/ 2019-10-11 Pratima Landeros MD Serafin son DIFFERENTIAL 20:35:00 COMPREHENSIVE METABOLIC PANEL 2019-10-11 Pratima Landeros MD 20:35:00 FREE THYROXINE 2019-10-11 Pratima Landeros MD 20:35:00 MAGNESIUM LEVEL 2019-10-11 Pratima Landeros MD 20:35:00 THYROID STIMULATING HORMONE 2019-10-11 Pratima Landeros MDrson 20:35:00 MD DURANT BLOOD CONTROL 2019-10-11 Little Snyder MD on 20:35:00 Results CBC 2019-10-11 Pratima Landeros MD 20:35:00 MANUAL DIFFERENTIAL 2019-10-11 Pratima Landeros MD 20:35:00 GLUCOSE LEVEL 2019-10-11 Pratima Landeros MD 20:35:00 BLOOD UREA NITROGEN 2019-10-11 Pratima Landeros MD 20:35:00 ELECTROLYTE PANEL 2019-10-11 Pratima Landeros MD 20:35:00 SERUM CREATININE 2019-10-11 Pratima Landeros MD 20:35:00 .GLOMERULAR FILTRATION RATE 2019-10-11 Pratima Landeros MD nderson 20:35:00 CALCIUM LEVEL TOTAL 2019-10-11 Pratima Landeros MD 20:35:00 ALBUMIN LEVEL 2019-10-11 Pratima Landeros MD 20:35:00 ALKALINE PHOSPHATASE 2019-10-11 Pratima Landeros MD 20:35:00 ALANINE AMINOTRANSFERASE 2019-10-11 Pratima Landeros MD Donnie rson 20:35:00 ASPARTATE AMINOTRANSFERASE 2019-10-11 LanderosPratima santos MD derson 20:35:00 TOTAL PROTEIN 2019-10-11 LanderosPratima santos MD 20:35:00 FRACTIONATED BILIRUBIN 2019-10-11 Pratima Landeros MD Karthik on 20:35:00 MRI CERVICAL SPINE W WO 2019-09-12 Evelin Wheeler MD Serafin son CONTRAST 23:00:00 MRI THORACIC SPINE W WO 2019-09-12 Evelin Wheeler MD Serafin son CONTRAST 23:00:00 EKG, 12-LEAD (PORTABLE) 2019-09-10 Grant Petty MD Serafin son 00:00:00 CT CHEST PULMONARY EMBOLISM W 2019-09-08 Grant Petty MD CONTRAST 20:34:56 POC CREATININE 2019-09-08 Grant Petty MD 19:43:00 XR CHEST 2 VW 2019-09-08 Grant Petty MD 19:26:23 COMPLETE BLOOD COUNT W/ 2019-09-08 Grant Petty MD Serafin son DIFFERENTIAL 19:26:00 COMPREHENSIVE METABOLIC PANEL 2019-09-08 Grant Petty MD 19:26:00 MAGNESIUM LEVEL 2019-09-08 Jovanny, Grant Pickett 19:26:00 PHOSPHORUS LEVEL 2019-09-08 Jovanny, Grant Pickett 19:26:00 CARDIAC PANEL 2019-09-08 Grant Petty MD 19:26:00 NT PRO BNP 2019-09-08 Grant Petty MD 19:26:00 PROTHROMBIN TIME 2019-09-08 Grant Petty MD 19:26:00 PARTIAL THROMBOPLASTIN TIME 2019-09-08 Grant Petty MD nderson 19:26:00 D DIMER 2019-09-08 Jovanny, Grant Pickett 19:26:00 Results CBC 2019-09-08 Jovanny, Grant Pickett 19:26:00 MANUAL DIFFERENTIAL 2019-09-08 Jovanny, Grant Pickett 19:26:00 GLUCOSE LEVEL 2019-09-08 Jovanny, Grant Pickett 19:26:00 BLOOD UREA NITROGEN 2019-09-08 Jovanny, Grant Pickett 19:26:00 ELECTROLYTE PANEL 2019-09-08 Jovanny, Grant Pickett 19:26:00 SERUM CREATININE 2019-09-08 Jovanny, Grant Pickett 19:26:00 .GLOMERULAR FILTRATION RATE 2019-09-08 Jovanny, Grant Gama nderson 19:26:00 CALCIUM LEVEL TOTAL 2019-09-08 Jovanny, Grant Pickett 19:26:00 ALBUMIN LEVEL 2019-09-08 Jovanny, Grant Pickett 19:26:00 ALKALINE PHOSPHATASE 2019-09-08 Jovanny, Grant Pickett 19:26:00 ALANINE AMINOTRANSFERASE 2019-09-08 Jovanny, Grant Lubine rson 19:26:00 ASPARTATE AMINOTRANSFERASE 2019-09-08 Jovanny, Grant Wellington derson 19:26:00 TOTAL PROTEIN 2019-09-08 Jovanny, Grant Pickett 19:26:00 FRACTIONATED BILIRUBIN 2019-09-08 Jovanny, Grant Angeles on 19:26:00 POC TROPONIN I 2019-09-08 Jovanny, Grant Pickett 19:26:00 MRI LUMBAR SPINE W WO 2019-09-04 Meek Ramos MD n CONTRAST 18:25:00 CT CHEST ABDOMEN PELVIS W 2019-08-23 Stalin Miguel MDson CONTRAST 17:04:40 ARCHIVED MATERIAL RETRIEVAL 2019-08-20 iLttle Snyder MD 00:00:00 PATHOLOGY REQUISITION 2019-08-17 Little Snyder MD Serafin son 00:00:00 XR CHEST 2 VW 2019-08-15 Natalia Lynn MD 14:03:45 COMPLETE BLOOD COUNT W/ 2019-08-03 Laurita Hamlin MD INDICES 11:05:00 BASIC METABOLIC PANEL, 2019-08-03 Laurita Hamlin MD on CALCIUM TOTAL 11:05:00 MAGNESIUM LEVEL 2019-08-03 Laurita Hamlin MD 11:05:00 GLUCOSE LEVEL 2019-08-03 Laurita Hamlin MD 11:05:00 BLOOD UREA NITROGEN 2019-08-03 Laurita Hamlin MD 11:05:00 ELECTROLYTE PANEL 2019-08-03 Laurita Hamlin MD 11:05:00 SERUM CREATININE 2019-08-03 Laurita Hamlin MD 11:05:00 .GLOMERULAR FILTRATION RATE 2019-08-03 Laurita Hamlin MD nderson 11:05:00 CALCIUM LEVEL TOTAL 2019-08-03 Laurita Hamlin MD 11:05:00 XR CHEST 2 VW 2019-08-02 Laurita Hamlin MD 21:00:22 XR CHEST 2 VW 2019-08-02 Laurita Hamlin MD 13:40:46 COMPLETE BLOOD COUNT W/ 2019-08-02 Laurita Hamlin MD INDICES 09:15:00 BASIC METABOLIC PANEL, 2019-08-02 Laurita Hamlin MD on CALCIUM TOTAL 09:15:00 MAGNESIUM LEVEL 2019-08-02 Laurita Hamlin MD 09:15:00 GLUCOSE LEVEL 2019-08-02 Laurita Hamlin MD 09:15:00 BLOOD UREA NITROGEN 2019-08-02 Laurita Hamlin MD 09:15:00 ELECTROLYTE PANEL 2019-08-02 Laurita Hamlin MD 09:15:00 SERUM CREATININE 2019-08-02 Laurita Hamlin MD 09:15:00 .GLOMERULAR FILTRATION RATE 2019-08-02 Laurita Hamlin MD nderson 09:15:00 CALCIUM LEVEL TOTAL 2019-08-02 Laurita Hamlni MD 09:15:00 EKG, 12-LEAD (PORTABLE) 2019-08-02 Laurita Hamlin MD 00:00:00 XR CHEST 2 VW 2019-08-01 Al MD Piyush Benjamin 13:48:35 Zainulabdeen A CALCIUM IONIZED, VENOUS 2019-08-01 MD Serafin Wheat 08:58:00 Zainulabdeen A SODIUM LEVEL 2019-08-01 MD Piyush Wheat 08:58:00 Zainulabdeen A POTASSIUM LEVEL 2019-08-01 MD Piyush Wheat 08:58:00 Zainulabdeen A CHLORIDE LEVEL 2019-08-01 MD Piyush Wheat 08:58:00 Zainulabdeen A CARBON DIOXIDE LEVEL 2019-08-01 MD Piyush Wheat 08:58:00 Zainulabdeen A BLOOD UREA NITROGEN 2019-08-01 MD Piyush Wheat 08:58:00 Zainulabdeen A SERUM CREATININE 2019-08-01 MD Piyush Wheat 08:58:00 Zainulabdeen A GLUCOSE, RANDOM 2019-08-01 MD Piyush Wheat 08:58:00 Zainulabdeen A MAGNESIUM LEVEL 2019-08-01 MD Piyush Wheat 08:58:00 Zainulabdeen A CALCIUM LEVEL TOTAL 2019-08-01 MD Piyush Wheat 08:58:00 Zainulabdeen A PHOSPHORUS LEVEL 2019-08-01 MD Piyush Wheat 08:58:00 Zainulabdeen A COMPLETE BLOOD COUNT W/ 2019-08-01 MD Serafin Wheat DIFFERENTIAL 08:58:00 Zainulabdeen A SERUM CREATININE 2019-08-01 Nir Sanabria MD 08:58:00 .GLOMERULAR FILTRATION RATE 2019-08-01 Nir Sanabria MD nderson 08:58:00 Results CBC 2019-08-01 Nir Sanabria MD 08:58:00 MANUAL DIFFERENTIAL 2019-08-01 Nir Sanabria MD 08:58:00 ANION GAP 2019-08-01 Nir Sanabria MD 08:58:00 EKG, 12-LEAD (PORTABLE) 2019-08-01 Laurita Hamlin MD Serafin son 00:00:00 [place] SOLID TUMOR GENOMIC 2019-07-31 Little Snyder MD nderson ASSAY DNA V2 INTERPRETATION 20:31:00 AND REPORT [place] SOLID TUMOR GENOMIC 2019-07-31 Little Snyder MD nderson ASSAY RNA V1 INTERPRETATION 20:31:00 AND REPORT XR CHEST 1 VW POST IMPLANT 2019-07-31 MD Eliz Wheat 18:25:10 Zainulabdeen A SODIUM LEVEL 2019-07-31 MD Piyush Wheat 18:08:00 Zainulabdeen A POTASSIUM LEVEL 2019-07-31 MD Piyush Wheat 18:08:00 Zainulabdeen A CHLORIDE LEVEL 2019-07-31 MD Piyush Wheat 18:08:00 Zainulabdeen A CARBON DIOXIDE LEVEL 2019-07-31 Fede RstMD Piyush nation 18:08:00 Zainulabdeen A BLOOD UREA NITROGEN 2019-07-31 MD Piyush Wheat 18:08:00 Zainulabdeen A SERUM CREATININE 2019-07-31 Fede RstMD [place] 18:08:00 Zainulabdeen A GLUCOSE, RANDOM 2019-07-31 Fede RstMD [place] 18:08:00 Zainulabdeen A MAGNESIUM LEVEL 2019-07-31 Fede RstMD [place] 18:08:00 Zainulabdeen A CALCIUM LEVEL TOTAL 2019-07-31 Fede RstMD [place] 18:08:00 Zainulabdeen A CALCIUM IONIZED, VENOUS 2019-07-31 MD Serafin Wheat 18:08:00 Zainulabdeen A PHOSPHORUS LEVEL 2019-07-31 MD Piyush Wheat 18:08:00 Zainulabdeen A COMPLETE BLOOD COUNT W/ 2019-07-31 MD Serafin Wheat DIFFERENTIAL 18:08:00 Zainulabdeen A SERUM CREATININE 2019-07-31 Nir Sanabria MD 18:08:00 .GLOMERULAR FILTRATION RATE 2019-07-31 Nir Sanabria MD nderson 18:08:00 Results CBC 2019-07-31 Nir Sanabria MD 18:08:00 MANUAL DIFFERENTIAL 2019-07-31 Nir Sanabria MD 18:08:00 ANION GAP 2019-07-31 Nir Sanabria MD 18:08:00 SURGICAL HISTORIC 2019-07-31 Conversion, Pathology MD Serafin collins 18:00:00 OR ARTERIAL BLOOD GAS PLUS 2019-07-31 Rosita Copeland 16:26:00 PREPARE RBC 2019-07-31 Nir Sanabria MD 16:22:00 PREPARE RBC 2019-07-31 Nir Sanabria MD 16:21:00 PREPARE FRESH FROZEN PLASMA 2019-07-31 Provider, Aiyana Pickett 16:17:00 TRANSFUSE RED BLOOD CELLS 2019-07-31 Rosita Copeland MD 16:13:18 PREPARE RBC 2019-07-31 Nir Sanabria MD 15:46:00 OR ARTERIAL BLOOD GAS PLUS 2019-07-31 Rosita Copeland 15:45:00 TRANSFUSE RED BLOOD CELLS 2019-07-31 Rosita Copeland MD 15:20:01 PREPARE RBC 2019-07-31 Nir Sanabria MD 15:17:00 PREPARE RBC 2019-07-31 Provider, Aiyana Pickett 14:48:00 OR ARTERIAL BLOOD GAS PLUS 2019-07-31 Rosita Copeland 14:45:00 PATHOLOGY SURGICAL SPECIMEN 2019-07-31 Nir Sanabria MDrson INTERPRETATION 14:07:02 TYPE AND SCREEN 2019-07-31 Natalia Lynn MD 12:33:00 ABORH 2019-07-31 Natalia Lynn MD 12:33:00 ANTIBODY SCREEN 2019-07-31 Natalia Lynn MD 12:33:00 CLOT EXPIRATION DATE 2019-07-31 Natalia Lynn MD 12:33:00 TMP INTERPRETATION ANTIBODY 2019-07-31 Natalia Lynn MDon SCREEN NEGATIVE 12:33:00 TMP CROSSMATCH INTERPRETATION 2019-07-31 Natalia Lynn MD 12:33:00 THORACIC LYMPHADENECTOMY BY 2019-07-31 Nir Sanabria MD THORACOTOMY, MEDIASTINAL AND 12:15:00 REGIONAL LYMPHADENECTOMY LOBECTOMY OF LUNG 2019-07-31 Nir Sanabria MD 12:15:00 DIAGNOSTIC FLEXIBLE OR RIGID 2019-07-31 Nri Sanabria MD BRONCHOSCOPY (AIRWAY EXAM) 12:15:00 RESECTION/RECONSTRUCTION OF 2019-07-31 Nir Sanabria MD DIAPHRAGM/PERICARDIUM; 12:15:00 COMPLEX REPAIR RESECTION AND REPAIR OF 2019-07-31 Nir Sanabria MD son BRONCHUS 12:15:00 THYROID STIMULATING HORMONE 2019-07-25 Nate Malone MD 18:16:00 FREE THYROXINE 2019-07-25 Nate Malone MD 18:16:00 VITAMIN D 25 HYDROXY LEVEL 2019-07-25 Nate Malone MDon 18:16:00 CALCIUM LEVEL TOTAL 2019-07-25 Nate Malone MD 18:16:00 ALBUMIN LEVEL 2019-07-25 Nate Malone MD 18:16:00 COMPLETE BLOOD COUNT W/ 2019-07-25 Natalia Lynn MD son DIFFERENTIAL 18:16:00 COMPREHENSIVE METABOLIC PANEL 2019-07-25 Ali, Natalia Pickett 18:16:00 TYPE AND SCREEN 2019-07-25 Ali, Natalia Pickett 18:16:00 HEMOGLOBIN A1C 2019-07-25 Ali, Natalia Pickett 18:16:00 GLUCOSE LEVEL 2019-07-25 Ali, Natalia Pickett 18:16:00 BLOOD UREA NITROGEN 2019-07-25 Ali, Natalia Pickett 18:16:00 ELECTROLYTE PANEL 2019-07-25 Ali, Natalia Pickett 18:16:00 SERUM CREATININE 2019-07-25 Ali, Natalia Pickett 18:16:00 .GLOMERULAR FILTRATION RATE 2019-07-25 Natalia Lynn MD nderson 18:16:00 ALKALINE PHOSPHATASE 2019-07-25 Ali, Natalia Pickett 18:16:00 ALANINE AMINOTRANSFERASE 2019-07-25 Ali, Natalia Gama MD Donnie rson 18:16:00 ASPARTATE AMINOTRANSFERASE 2019-07-25 Ali, Natalia Wellington derson 18:16:00 TOTAL PROTEIN 2019-07-25 Ali, Natalia Pickett 18:16:00 FRACTIONATED BILIRUBIN 2019-07-25 Ali, Natalia Angeles on 18:16:00 Results CBC 2019-07-25 Natalia Lynn MD 18:16:00 MANUAL DIFFERENTIAL 2019-07-25 Natalia Lynn MD 18:16:00 ABORH 2019-07-25 Natalia Lynn MD 18:16:00 ANTIBODY SCREEN 2019-07-25 Natalia Lynn MD 18:16:00 CLOT EXPIRATION DATE 2019-07-25 Natalia Lynn MD 18:16:00 TMP INTERPRETATION ANTIBODY 2019-07-25 AliNatalia MD nderson SCREEN NEGATIVE 18:16:00 CT CHEST W CONTRAST 2019-06-27 Marj Bennett MD Donnie rson 13:21:12 THYROID STIMULATING HORMONE 2019-06-22 Nate Malone MD 17:40:11 FREE THYROXINE 2019-06-22 Nate Maolne MD 17:40:11 TOTAL T3 2019-06-22 Nate Malone MD 17:40:11 COMPLETE BLOOD COUNT W/ 2019-06-22 Pratima Landeros MD Serafin son DIFFERENTIAL 17:40:11 COMPREHENSIVE METABOLIC PANEL 2019-06-22 Pratima Landeros MD 17:40:11 MAGNESIUM LEVEL 2019-06-22 Pratima Landeros MD 17:40:11 PHOSPHORUS LEVEL 2019-06-22 Pratima Landeros MD 17:40:11 Results CBC 2019-06-22 Pratima Landeros MD 17:40:11 MANUAL DIFFERENTIAL 2019-06-22 Pratima Landeros MD 17:40:11 GLUCOSE LEVEL 2019-06-22 Pratima Landeros MD 17:40:11 BLOOD UREA NITROGEN 2019-06-22 Pratima Landeros MD 17:40:11 ELECTROLYTE PANEL 2019-06-22 Pratima Landeros MD 17:40:11 SERUM CREATININE 2019-06-22 Pratima Landeros MD 17:40:11 .GLOMERULAR FILTRATION RATE 2019-06-22 Pratima Landeros MD nderson 17:40:11 CALCIUM LEVEL TOTAL 2019-06-22 Pratima Landeros MD 17:40:11 ALBUMIN LEVEL 2019-06-22 Pratima Landeros MD 17:40:11 ALKALINE PHOSPHATASE 2019-06-22 Pratima Landeros MD 17:40:11 ALANINE AMINOTRANSFERASE 2019-06-22 Pratima Landeros MD Donnie rson 17:40:11 ASPARTATE AMINOTRANSFERASE 2019-06-22 Pratima Landeros MD derson 17:40:11 TOTAL PROTEIN 2019-06-22 Pratima Landeros MD 17:40:11 FRACTIONATED BILIRUBIN 2019-06-22 Pratima Landeros MD Karthik on 17:40:11 RHYTHM STRIP - SCAN 2019-06-20 Provider, Default [facility] - 13:00:29 [facility] REPORT OF PROCEDURE - 2019-06-20 Provider, Default [facility] - ENDOSCOPY SCAN 10:50:44 [facility] RHYTHM STRIP - SCAN 2019-06-20 Provider, Default [facility] - 10:50:39 [facility] MRA HEAD WITHOUT IV CONTRAST 2019-06-16 Sutaria, Devaughn S [facility] - 13:45:00 [facility] MRA NECK WITHOUT IV CONTRAST 2019-06-16 Sutaria, Devaughn S [facility] - 13:45:00 [facility] MR BRAIN WITHOUT IV CONTRAST 2019-06-16 Sutaria, Devaughn S [facility] - 13:45:00 [facility] COMPREHENSIVE METABOLIC PANEL 2019-06-[address] [facility] - 02:06:00 [facility] MAGNESIUM 2019-06-[address] [facility] - 02:06:00 [facility] PT/APTT 2019-06-[address] [facility] - 02:06:00 [facility] LIPID PANEL 2019-06-16 Heavenaria, Devaughn S [facility] - 02:06:00 [facility] TROPONIN I 2019-06-16 Sutaria, Devaughn S [facility] - 02:06:00 [facility] HOMOCYSTEINE 2019-06-16 Sutaria, Devaughn S [facility] - 02:06:00 [facility] RPR 2019-06-16 Sutaria, Devaughn S [facility] - 02:06:00 [facility] HEPATIC FUNCTION PANEL 2019-06-16 Sutaria, Devaughn S [facility] - 02:06:00 [facility] TSH/FREE T4 IF INDICATED 2019-06-16 Heavenaria, Devaughn S [facility] - 02:06:00 [facility] VITAMIN B12 AND FOLATE 2019-06-16 Sutaria, Devaughn S [facility] - 02:06:00 [facility] C-REACTIVE PROTEIN 2019-06-16 Sutaria, Devaughn S [facility] - 02:06:00 [facility] HIV-1 ANTIGEN WITH HIV-1/2 2019-06-16 Sutaria, Devaughn S [facility] - ANTIBODY 02:06:00 [facility] [facility] T4, FREE 2019-06-16 Sutaria, Devaughn S [facility] - 02:06:00 [facility] CBC W/PLT COUNT & AUTO 2019-06-[address] [facility] - DIFFERENTIAL 02:06:00 [facility] ECG 12-LEAD 2019-06-[address] [facility] - 00:32:32 [facility] XR CHEST 2 VW 2019-05-16 Chrystal Traylor MD 15:54:20 COMPLETE BLOOD COUNT W/ 2019-05-16 Pratima Landeros MD Serafin son DIFFERENTIAL 15:22:00 COMPREHENSIVE METABOLIC PANEL 2019-05-16 Pratima Landeros MD 15:22:00 MAGNESIUM LEVEL 2019-05-16 TigrePratima MD 15:22:00 PHOSPHORUS LEVEL 2019-05-16 TigrePratima MD 15:22:00 Results CBC 2019-05-16 LanderosPratima santos MD 15:22:00 MANUAL DIFFERENTIAL 2019-05-16 TigrePratima MD 15:22:00 GLUCOSE LEVEL 2019-05-16 TigrePratima MD 15:22:00 BLOOD UREA NITROGEN 2019-05-16 LanderosPratima santos MD 15:22:00 ELECTROLYTE PANEL 2019-05-16 LanderosPratima santos MD 15:22:00 SERUM CREATININE 2019-05-16 LanderosPratima MD 15:22:00 .GLOMERULAR FILTRATION RATE 2019-05-16 Pratima Landeros MD A nderson 15:22:00 CALCIUM LEVEL TOTAL 2019-05-16 TigrePratima MD 15:22:00 ALBUMIN LEVEL 2019-05-16 LanderosPratima MD 15:22:00 ALKALINE PHOSPHATASE 2019-05-16 LanderosPratima santos MD 15:22:00 ALANINE AMINOTRANSFERASE 2019-05-16 LanderosPratima santos MD Donnie rson 15:22:00 ASPARTATE AMINOTRANSFERASE 2019-05-16 LanderosPratima santos MD An derson 15:22:00 TOTAL PROTEIN 2019-05-16 LnaderosPratima santos MD 15:22:00 FRACTIONATED BILIRUBIN 2019-05-16 Pratima Landeros MD Karthik on 15:22:00 CT CHEST ABDOMEN PELVIS W 2019-05-16 Pratima Landeros MD And erson CONTRAST 14:13:10 CT CHEST PULMONARY EMBOLISM W 2019-05-01 Ariadne Montes De Oca MD CONTRAST 21:08:53 COMPLETE BLOOD COUNT W/ 2019-05-01 Ariadne Montes De Oca MD derson DIFFERENTIAL 18:18:00 COMPREHENSIVE METABOLIC PANEL 2019-05-01 Ariadne Montes De Oca MD 18:18:00 MAGNESIUM LEVEL 2019-05-01 Ariadne Montes De Oca MD 18:18:00 PHOSPHORUS LEVEL 2019-05-01 Ariadne Montes De Oca MD 18:18:00 PROTHROMBIN TIME 2019-05-01 Ariadne Montes De Oca MD 18:18:00 PARTIAL THROMBOPLASTIN TIME 2019-05-01 Ariadne Montes De Oca 18:18:00 Results CBC 2019-05-01 Ariadne Montes De Oca MD 18:18:00 MANUAL DIFFERENTIAL 2019-05-01 Ariadne Montes De Oca MD on 18:18:00 GLUCOSE LEVEL 2019-05-01 Ariadne Montes De Oca MD 18:18:00 BLOOD UREA NITROGEN 2019-05-01 Ariadne Montes De Oca MD on 18:18:00 ELECTROLYTE PANEL 2019-05-01 Ariadne Montes De Oca MD 18:18:00 SERUM CREATININE 2019-05-01 Ariadne Montes De Oca MD 18:18:00 .GLOMERULAR FILTRATION RATE 2019-05-01 Ariadne Montes De Oca 18:18:00 CALCIUM LEVEL TOTAL 2019-05-01 Ariadne Montes De Oca MD on 18:18:00 ALBUMIN LEVEL 2019-05-01 Ariadne Montes De Oca MD 18:18:00 ALKALINE PHOSPHATASE 2019-05-01 Ariadne Montes De Oca MD Serafin son 18:18:00 ALANINE AMINOTRANSFERASE 2019-05-01 Ariadne Montes De Oca MD A nderson 18:18:00 ASPARTATE AMINOTRANSFERASE 2019-05-01 Ariadne Montes De Oca MD 18:18:00 TOTAL PROTEIN 2019-05-01 Ariadne Montes De Oca MD 18:18:00 FRACTIONATED BILIRUBIN 2019-05-01 Ariadne Montes De Oca MD And erson 18:18:00 XR CHEST 2 VW 2019-05-01 Ariadne Montes De Oca MD 17:22:29 IR CHEST XRAY 1 VIEW 2019-04-19 Vj Aparicio MD on 17:59:00 SURGICAL BIOPSY HISTORIC 2019-04-19 Conversion, Pathology Shana Pickett 17:00:00 DEEP FNA HISTORIC 2019-04-19 Conversion, Pathology Serafin son 17:00:00 IR CHEST XRAY 1 VIEW 2019-04-19 Vj Aparicio MD Karthik on 14:59:[address] GUIDED BIOPSY 2019-04-19 Little Snyder MD LUNG/MEDIASTINAL 14:52:49 PATHOLOGY BIOPSY SPECIMEN 2019-04-19 Little Snyder MD nderson INTERPRETATION 14:15:52 CYTOPATHOLOGY IMAGE-GUIDED 2019-04-19 Little Snyder MD FNA INTERPRETATION 00:00:00 PROTHROMBIN TIME 2019-04-18 Ankit Bishop MD 14:36:00 THYROID STIMULATING HORMONE 2019-04-18 Nate Malone MD 14:36:00 FREE THYROXINE 2019-04-18 Nate Malone MD 14:36:00 EKG, 12-LEAD (SCHEDULED) 2019-04-18 Pina Velásquez MD Donnie rson 00:00:00 DEEP FNA HISTORIC 2019-04-09 Conversion, Pathology Serafin son 17:00:00 LOWER RESPIRATORY CULTURE W/ 2019-04-09 Jose Manuel Lafleur MD GRAM STAIN 15:20:00 FUNGUS CULTURE W/ SMEAR 2019-04-09 Jose Manuel Lafleur MD Donnie rson 15:20:00 AFB CULTURE W/ SMEAR 2019-04-09 Jose Manuel Lafleur MD Anderso n 15:20:00 TISSUE/FNA CULTURE 2019-04-09 Jose Manuel Lafleur MD 15:16:00 AFB CULTURE W/ SMEAR 2019-04-09 Jose Manuel Lafleur MD Anderso n 15:16:00 FUNGUS CULTURE W/ SMEAR 2019-04-09 Jose Manuel Lafleur MD Donnie rson 15:16:00 CYTOPATHOLOGY IMAGE-GUIDED 2019-04-09 Jose Manuel Lafleur MD nderson FNA INTERPRETATION 14:56:00 PULMONARY ULTRASOUND 2019-04-09 Chrystal Traylor MD 14:26:35 CARDIOPULMONARY NOTE RESULTS 2019-04-09 Jose Manuel Lafleur MD 14:17:22 BRONCHOSCOPY WITH EBUS SINGLE 2019-04-09 Jose Manuel Lafleur STATION 14:17:00 SPIROMETRY W/DILATORS, DLCO 2019-04-05 Haroon Figueroa MD nderson AND BODY PLETHSMOGRAPHIC LUNG 19:59:[address] CHEST WO CONTRAST 2019-04-05 Jose Manuel Lafleur MD 17:10:00 PATHOLOGY REQUISITION 2019-03-08 Little Snyder MD Serafin son 00:00:00 Plan of Care Planned Activity Planned Date Details Comments Source Future Scheduled 2020-07-19 COLONOSCOPY SCREENING [place] [facility] 00:00:00 [code = COLONOSCOPY SCREENING] Future Scheduled 2020-03-18 INFLUENZA VACCINE [place] [facility] 00:00:00 [code = INFLUENZA VACCINE] Future Scheduled 2018 65+ PNEUMOCOCCAL [place] [facility] 00:00:00 VACCINE (1 of 2 - PCV13) [code = 65+ PNEUMOCOCCAL VACCINE (1 of 2 - PCV13)] Future Scheduled 2003 BREAST CANCER [facility] Test 00:00:00 SCREENING [code = BREAST CANCER SCREENING] Future Scheduled 2003 SHINGLES VACCINES (#1) [place] [facility] 00:00:00 [code = SHINGLES VACCINES (#1)] Encounters Start End Encounter Admission Attending Care Care Encounter Source Date/Time Date/Time Type Type Clinicians Facility Department ID 2020-01-24 Outpatient KISHAN MONTERO MDA [id number] 08:34:22 ANKIT perez 2020-01-24 Outpatient KISHAN MONTERO MDA [id number] 08:34:22 ANKIT perez 2020-01-23 Outpatient MOTA, KISHAN MDA [id number] 10:00:42 SONIA perez 2020-01-21 Outpatient KISHAN MDA [id number] 10:45:04 Anderso chris 2020-01-17 Outpatient CURRIE, KISHAN MDA [id number] 11:40:20 TALIA Gonzalezerso chris 2020-01-17 Outpatient CURRIE, KISHAN MDA [id number] 11:37:27 TALIA Anderso chris 2020-01-17 Outpatient AGUILAR, MDA MDA [id number] 08:23:25 SEVERO perez 2020-01-10 Outpatient KISHAN MDA [id number] 14:14:03 Anderso chris 2020-04-28 2020-04-28 Outpatient SUKHWINDER PAREDES MDA MDA [id number] 00:00:00 00:00:00 Karthik o chris 2020-04-25 2020-04-25 Outpatient EL LIAO, MDA MDA [id number] MD 00:00:00 00:00:00 KIKE perez 2020-04-03 2020-04-03 Outpatient EL CYNDI NAILS, MDA MDA [id number] MD 00:00:00 00:00:00 CIRERA perez 2020-04-03 2020-04-03 Outpatient EL GENARO, MDA MDA [id number] MD 00:00:00 00:00:00 TODD stroudso n 2020-04-03 2020-04-03 Outpatient EL HRING, MDA MDA [id number] MD 00:00:00 00:00:00 TODD stroudso n 2020-04-03 2020-04-03 Outpatient EL HRING, MDA MDA [id number] MD 00:00:00 00:00:00 TODD perez 2020-03-05 2020-03-05 Outpatient EL ELEANOR, MDA MDA [id number] MD 00:00:00 00:00:00 OCTAVIANO perez 2020-03-05 2020-03-05 Outpatient EL WEBSTER, MDA MDA [id number] MD 00:00:00 00:00:00 OCTAVIANO perez 2020-03-05 2020-03-05 Outpatient EL WEBSTER, MDA MDA [id number] MD 00:00:00 00:00:00 OCTAVIANO perez 2020-02-01 2020-02-01 Outpatient EL MILIND, MDA MDA [id number] MD 00:00:00 00:00:00 FELIX perez 2020-02-01 2020-02-01 Outpatient EL SNYDER, MDA MDA [id number] MD 00:00:00 00:00:00 LITTLE perez 2020-01-29 2020-01-29 Outpatient EL LOCKETT, MDA MDA [id number] MD 00:00:00 00:00:00 GODFREY perez 2020-01-28 2020-01-28 Outpatient EL LUIGI, MDA MDA [id number] MD 00:00:00 00:00:00 IRVING perez 2020-01-28 2020-01-28 Outpatient EL LUIGI, MDA MDA [id number] MD 00:00:00 00:00:00 IRVING perez 2020-01-24 2020-01-24 Outpatient EL CORA, MDA Inter Rad [id number] MD 10:28:00 10:28:00 OSCAR Gonzalezbenito perez 2020-01-23 2020-01-23 Outpatient EL LUIGI, MDA MDA [id number] MD 11:54:09 11:54:09 IRVING Karthik o chris 2020-01-22 2020-01-22 Outpatient [facility], MDA MDA [id number] MD 10:25:25 10:25:25 IRVING Karthik o n 2020-01-22 2020-01-22 Outpatient EL ANDRA, MDA MDA [id number] MD 10:12:32 10:12:32 MIKE Gonzalezers o n 2020-01-22 2020-01-22 Outpatient EL LUIGI, MDA MDA [id number] MD 07:28:53 07:28:53 IRVINGCAROLANN perez 2020-01-21 2020-01-21 Outpatient [facility] MDA MDA [id number] MD 13:30:00 23:59:00 MARII o chris 2020-01-21 2020-01-[address] [facility], MDA MDA [id number] MD 12:32:38 13:29:00 IRVINGCAROLANN Gonzalezers o chris 2020-01-21 2020-01-[address] [facility], MDA MDA [id number] MD 09:30:00 12:31:00 IRVING Gonzalezers o chris 2020-01-21 2020-01-21 Outpatient [facility], MDA MDA [id number] MD 10:16:01 10:16:01 TODD perez 2020-01-21 2020-01-21 Outpatient EL BRITTON SUKHWINDER MDA MDA [id number] MD 08:30:00 09:29:00 Karthik ozzie perez 2020-01-21 2020-01-21 Outpatient BRITTON, SUKHWINEDR MDA MDA [id number] MD 00:00:00 00:00:00 Karthik perez 2020-01-21 2020-01-21 Outpatient EL LUIGI, MDA MDA [id number] MD 00:00:00 00:00:00 IRVING Gonzalezers o chris 2020-01-21 2020-01-21 Outpatient EL LUIGI, MDA MDA [id number] MD 00:00:00 00:00:00 IRVING Angeles ozzie perez 2020-01-19 2020-01-19 Outpatient EL HRING, MDA MDA [id number] 00:00:00 00:00:00 TODD perez 2020-01-17 2020-01-17 Outpatient EL LUIGI, MDA MDA [id number] 12:45:00 23:59:00 IRVING Karthik ozzie perez 2020-01-17 2020-01-17 Outpatient EL CYNDI , MDA MDA [id number] MD 10:47:35 12:53:04 CIERRA perez 2020-01-17 2020-01-17 Outpatient EL LUIGI, MDA MDA [id number] MD 08:17:44 12:44:00 IRVING Karthik o chris 2020-01-16 2020-01-16 Outpatient EL LUIGI, MDA MDA [id number] MD 11:28:31 23:59:00 IRVING Karthikbenito perez 2020-01-15 2020-01-15 Outpatient EL LUIGI, MDA MDA [id number] MD 12:37:54 23:59:00 IRVING Karthikbenito perez 2020-01-14 2020-01-14 Outpatient EL LUIGI, MDA MDA [id number] MD 14:00:00 23:59:00 IRVING Karthik o chris 2020-01-14 2020-01-14 Outpatient MILIND, MDA MDA [id number] MD 11:56:42 14:14:29 FELIX Fields rso n 2020-01-14 2020-01-14 Outpatient LUIGI, MDA MDA [id number] MD 11:07:59 13:59:00 IRVING Gonzalezers o chris 2020-01-14 2020-01-14 Outpatient SUKHWINDER PATEL MDA MDA [id number] MD 11:00:00 11:06:00 Karthik o chris 2020-01-14 2020-01-14 Outpatient EL LUIGI, MDA MDA [id number] MD 09:23:26 10:59:00 IRVING Gonzalezers o n 2020-01-10 2020-01-10 Outpatient MILIND, MDA MDA [id number] MD 12:59:08 23:59:00 FELIX Fields rso n 2020-01-10 2020-01-10 Outpatient MILIND, MDA MDA [id number] MD 14:01:23 14:01:23 FELIX Fields rso n 2020-01-09 2020-01-09 Outpatient ANAT MEYERS MDA MDA [id number] 09:42:30 23:59:00 IRVING perez 2020-01-09 2020-01-09 Outpatient ANAT VAZ MDA MDA [id number] MD 07:00:00 09:41:00 FELIX Fields rso n 2020-01-07 2020-01-07 Outpatient ANAT MEYERS MDA MDA [id number] 06:00:00 23:59:00 IRVING perez 2020-01-04 2020-01-04 Outpatient ANAT SNYDER MDA MDA [id number] 10:08:33 11:42:55 LITTLE perez 2020-01-02 2020-01-02 Outpatient ANAT VAZ MDA MDA [id number] MD 12:07:05 23:59:00 FELIX Fields rso n 2020-01-02 2020-01-02 Outpatient SUKHWINDER PAREDES MDA MDA [id number] 08:41:00 12:06:00 Karthik perez 2020-01-02 2020-01-02 Outpatient ANAT SNYDER MDA MDA [id number] 00:00:00 00:00:00 LITTLE perez 2019-12-31 2019-12-31 Outpatient ANAT HOLLEY MDA [id number] 13:45:00 23:59:00 Karthik perez 2019-12-31 2019-12-31 Outpatient SUKHWINDER PAREDES MDA MDA [id number] MD 11:15:00 13:44:00 Karthik perez Results Test Description Test Time Test Comments Results Result [facility] e Comments Fundus Photos - OU 2020-03-02 Right EyeThe MD Natan banuelos - Both Eyes 04:22:49 vitreous is clear. Disc findings include normal observations. Macula findings include normal observations. Vessel findings include normal observations. Left EyeThe vitreous is clear. Disc findings include normal observations. Macula findings include normal observations. Vessel findings include normal observations. Periphery findings include normal observations. NotesDrusen ou OCT, Retina - OU - 2020-03-02 Right EyeQuality MD Pickett Both Eyes 04:22:07 was good. Findings include normal observations. Left EyeQuality was good. Findings include normal observations. Differential 2020-02-29 15:54:29 Test Item Value Reference Range Interpretation Comme nts Total Cells (test code = 100 83776-6) Neutrophil % (test code = 6491) 64.0 % 42-66 The Neutrophil count includes Bands. Lymphocyte % (test code = 6194) 20.0 % 24-44 L Monocyte % (test code = 6422) 12.0 % 2-7 H Metamyelocyte % (test code = 3.0 % <=0.0 H The Metamyelocyte count 740-1) includes Myeloc ytes. Blasts % (test code = 708-8) 1.0 % <=0.0 H NRBC (test code = 771-6) 1.0 <=0.0 H Neutrophil Abs (test code = 0.90 K/uL 1.7-7.3 L 6492) Lymphocyte Abs (test code = 0.28 K/uL 1-4.8 L 6195) Monocyte Abs (test code = 6423) 0.17 K/uL 0.08-0.7 RBC Morph (test code = 6742-1) Present Normal A PLT Morph (test code = 52717-4) Normal Normal Anisocytosis (test code = Present Not Present A 702-1) Polychromasia (test code = Present Not Present A 75654-7) Ovalocyte (test code = 774-0) Present Not Present A Tear Drop (test code = 7791-7) Present Not Present A Lab Interpretation (test code = Abnormal 10268-4) MD Pickett.[id number] 15:54:27 Test Item Value Reference Range Interpretation Comments WBC (test code = 8034) 1.4 K/uL 4-11 L RBC (test code = 6932) 2.72 4.00- 5.50 M/uL L Hgb (test code = 5898) 8.9 12.0- 16.0 gm/dL L Hct (test code = 5860) 26.4 % 37-47 L MCV (test code = 6222) 97 fL 82-98 MCH (test code = 6220) 32.7 pg 27-31 H MCHC (test code = 6221) 33.7 31.0- 36.0 gm/dL RDW-SD (test code = 51.6 fL 35.1-46.3 H 6972) RDW-CV (test code = 14.7 % 12-15.5 6971) Platelet count (test 116 K/uL 140-440 L code = 6832) MPV (test code = 6282) 11.3 fL 4-10.4 H INRBC (test code = 1.4 % <=0.0 H The INRBC (instrument 5974) NRBC) value ref lects the enumeration of nucleated red b lood cells contained in a 200uL sampleof whole blood analyzed by the instrument. Thi s value maydiffer from the NRBC value reported in a m anual differential,wh ich is based on a 100 cell differential. Lab Interpretation Abnormal (test code = 84428-1) MD PickettVancomycin Trough Please obtain a vancomycin trough level, 30 minutes prior to 3rd dose (going into the weekend) on 02/29/20. Vancomycin trough level due: 0830. Vancomycin dose due: 0900. Thanks!2020-02-29 15:24:23 Test Item Value Reference Range Interpretation Comments Vanco Trough 15.3 5.0- 20.0 mcg/mL Toxic Troug h Level: >20 (test code = mcg/mL 8008) Vanco Tr Dose see note Level, date, a nd time Time (test of previous dos e is not code = 8007) availablefor is sample. The ata e reported is the samplecollectio n date. Vanco Tr Dose 02/29/2020 Level, date, a nd time Date (test of previous dos e is not code = 8006) availablefor th is sample. The ata e reported is the samplecollectio n date. YEFRI (test code Please obtain a = YEFRI) vancomycin trough level, 30 minutes prior to 3rd dose (going into the weekend) on 02/29/20. Vancomycin trough level due: 0830. Vancomycin dose due: 0900. Thanks! MD PickettPhosphorus [id number] 10:31:21 Test Item Value Reference Range Interpretation Comments Phosphorus (test code = 6817) 3.4 mg/dL 2.5-4.5 MD PicktetCalcium [id number] 10:31:20 Test Item Value Reference Range Interpretation Comments Calcium Lvl (test code = 5258) 8.2 mg/dL 8.4-10.2 L Lab Interpretation (test code = Abnormal 95970-5) MD PickettElectrolyte [id number] 10:31:19 Test Item Value Reference Range Interpretation Comments Sodium Lvl (test code = 7355) 137 136- 145 mEq/L Potassium Lvl (test code = 6854) 4.2 3.5- 5.1 mEq/L Chloride (test code = 5279) 99 98- 107 mEq/L CO2 (test code = 5227) 25 22- 29 mEq/L Anion Gap (test code = 9325) 13 4- 14 mEq/L MD PickettGlomerular Filtration [id number] 10:31:18 Test Item Value Reference Range Interpretation Comments eGFR-AA (test code = 59 >=60 mL/min/1.73 L Nor mal eGFR: >= 60 8062) sq. m mL/min/1.73 m2N ote: The eGFR is joanie culated using the CKD-E PI equation. The e GFR declines with a ge. eGFR <60 mL/min /1.73 m2 is considere d as "decreased". Th is equation should only be used for pat ients 18 and older. According to th e National Kidney Foundation's dney Disease Outcome Quality Initiat sudhir (KDOQI) classif ication and 2012 Kidney Disease Improvi ng Global Outcomes (KDIGO) Clinica l Practice Guidel ine, the stage of CK D should be categ orized based on estima celina GFR. Stage Desc ription GFR mL/mi n/1.73 m21 Normal or h igh GFR >=902 Mildly decreased GFR 60-893a M ildly to moderately decreased GFR 45-593b Moderat steven to severely decrea sed GFR 30-444 Caity rely decreased GFR 15-295 Kidney f ailure <15 eGFR-BOLIVAR (test code = 51 >=60 mL/min/1.73 L No rmal eGFR: >= 60 8063) sq. m mL/min/1.73 m2N ote: The eGFR is joanie culated using the CKD-E PI equation. The e GFR declines with a ge. eGFR <60 mL/min /1.73 m2 is considere d as "decreased". Th is equation should only be used for pat ients 18 and older. According to th e National Kidney Foundation's dney Disease Outcome Quality Initiat sudhir (KDOQI) classif ication and 2012 Kidney Disease Improvi ng Global Outcomes (KDIGO) Clinica l Practice Guidel ine, the stage of CK D should be categ orized based on estima celina GFR. Stage Desc ription GFR mL/mi n/1.73 m21 Normal or h igh GFR >=902 Mildly decreased GFR 60-893a M ildly to moderately decreased GFR 45-593b Moderat steven to severely decrea sed GFR 30-444 Caity rely decreased GFR 15-295 Kidney f ailure <15 Lab Interpretation Abnormal (test code = 02761-2) MD PickettGlucose [id number] 10:31:17 Test Item Value Reference Range Interpretation Comments Glucose Level (test code 142 mg/dL 70-99 H Ref erence range is = 5699) valid for fasti ng specimens only. Guidelines established by the [place] Diabet es Association guidelines (Standards of Medical Care in Diabetes 2016. Diabetes Care 2 016; 39: S13-22) are that a fasting gluco se of greater than or equal to 126 mg /dL or a random glu cose greater than or equal to 200 mg /dL with symptoms, that are confirmed b y repeat testing on a different day, meet the criteria fo r diabetes mell us. Lab Interpretation (test Abnormal code = 54975-8) MD PickettMagnesium [id number] 10:31:16 Test Item Value Reference Range Interpretation Comments Magnesium (test code = 6359) 2.0 mg/dL 1.6-2.6 MD Pickett.Serum [id number] 10:31:15 Test Item Value Reference Range Interpretation Comments Creatinine (test code = 5399) 1.13 mg/dL 0.51-0.95 H Lab Interpretation (test code = Abnormal 36744-0) MD [id number] 10:31:14 Test Item Value Reference Range Interpretation Comments BUN (test code = 5055) 13 mg/dL 6-23 MD PickettCardiac [id number] 10:12:13 Test Item Value Reference Range Interpretation Comments CK (test code = 5206) 58 U/L 20-180 CK MB (test code = 2.1 ng/mL <=5.3 5209) Troponin T (test code = 27 ng/L <=18 H < 19 ng/L 9384) S uggest retest at 3 to 6 hours later to rule out myocardial infarction >= 1 9 to <=52 ng/L Possible myocar dial injury. Sugges t retest at 3 bandar rs. - a change of < 20 ng/L, retest at 6 hours - a siena nge of >= 20 ng/L, suggestive of myocardial infarction > 52 ng/L Sugges tive of myocardial infarction Crit ical value will be reported when c Lidia isf > 52 ng/L a nd only reported f or the first in a seri es. Hemolyzed speci mens with Hemolysis Index >100 (100 mg/dl or moderate hemoly sis) may cause interferences a nd falsely low res ults. Lab Interpretation Abnormal (test code = 03625-9) MD PickettNT-Pro BNP (In-House)2020-02-29 10:00:11 Test Item Value Reference Range Interpretation Comments NT ProBNP (test code = 9385) 798 pg/mL <=125 H Lab Interpretation (test code = Abnormal 17686-8) MD PickettRespiratory PCR Panel Path [id number] 21:26:48RMP PRReviewed and Electronically signed by Pathologist:ALEJO PURCELL MD #[id number] Comment: Performed by real-time PCR methodology.This assay detects presence of nucleic acid (DNA or RNA) for the pathogens reported.A result of "Not Detected" does not exclude the the possibility of the presence of oneor more pathogens at less than the detection limits of this assay. This assay is FDAcleared for nasopharyngeal specimens only. All other sources are non-standardized. [facility] CAN[facility]ER [facility] Leg Venous Doppler [id number] 20:38:12 Negative for deep venous thrombosis in the bilateral lower extremities. Interface, Radiology Results In - 02/28/2020 3:40 PM CDTFULL RESULT:Examination: US LEG VENOUS DOPPLER BILATERAL, 02/28/2020 3:33 PMClinical History: Bladder cancerIndication: Edema Comparison: Similar lower extremity Doppler studies April 18, 2018Technique: Grayscale and color/spectral Doppler ultrasound of the bilateral lower extremity veins was performed.Findings: The bilateral common femoral, femoral, and popliteal veinsdemonstrate color flow, compressibility, and response to augmentation. The visualized posterior tibial, peroneal and anterior tibial veins are patent and compressible.IMPRESSION:Negative for deep venous thrombosis in the bilateral lower extremities.MD Muller Interpretation Antibody Screen [id number] 12:11:46 Test Item Value Reference Range Interpretation Comments TMP Auto Neg At the present ABSC Interp time, patient (test code = plasma shows no ____UZMA HERNANDEZ MD - 7535) evidence of RBC 76323Lxstuof d by: UZMA alloantibodies. MD Dez GOMEZ [id number] D ate/Time: 02.28.2020 7:11 AM CDT Transcribed Ata e/Time: 02.28.2020 7:11 AM CDTElectronical ly Signed By: MD Dez GIL [id number] on 02.27 7:11 AM C MD Quinn Chest Pulmonary Embolism with [id number] 11:56:591. No evidence of pulmonary embolism.2. New scattered bilateral patchy groundglass opacities are concerning for superimposed infection/inflammation.3. Stable small left pleural effusion and post-treatment changes of the left hemithorax.4. 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 COVID Impression category:Commonly reported imaging features of COVID-19 pneumonia are present. Other processes such as influenza pneumonia and organizing pneumonia, as can be seen with drug toxicity and connective tissue disease, can cause a similar imaging pattern. [[id number]] This is a preliminary resident report and has not been reviewed by an attending radiologist. FINAL FACULTY IMPRESSION: I agree with the above preliminary report with the following ad ditional comments/modifications: 1. There is eccentric chronic thrombus within the left main and interlobar arteries, extending from the original left lower lobectomy left lower lobe stump thrombus visible on studies of 08/23/2019, 10/10/2021, 12/20/2019. This thrombus is, however, unchanged from 02/11/2020. 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 No peripheral acute pulmonary embolic disease appreciated. 2. Some increase of left-sided pleural effusion/thickening, extending into the left lung apex. Surveillance advised. 3. 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 New patchy bilateral groundglass abnormalities are consistent with Covid 19. I personally reviewed these image(s) along with the resident's/fellow's interpretations, certify that if a procedure was performed I was physically present, and agree with the final report.Interface, Radiology Results In - 02/28/2020 6:59 AM CDTFULL RESULT:Ex amination: CT CHEST PULMONARY EMBOLISM W CONTRAST, 02/27/2020 11:18 PMClinical History: 64-year-old female with history of bladder cancerIndication: Chest pain, pleuritic, Dyspnea on exertion, SuspectedCOVID-19, Results Pending, 1Comparison: Chest, abdomen, and pelvis CT from 02/11/2020Technique: Spiral CT of the chest is performed using intravenous contrast.Findings: Lines and tubes: NonePulmonary arteries: Pulmonary artery opacification is adequate (450 HU). No central filling defects to suggest pulmonary embolism. The main pulmonary trunk is 3.2 cm in diameter, which is the upper limit of normal.Cardiac: The heart size is normal. Post surgical changes of partial pericardial resection with trace effusion. The thoracic aorta is normal in diameter.Lymph nodes: There is stable mild soft tissue thickening in the left hilar region (series 5, image 96). No mediastinal, right hilar, supraclavicular, or axillary lymphadenopathy.Other Mediastinum: Thyroid gland is homogeneous. Appropriate fatty involution of the thymus.Lungs and airways: Postsurgical changes of left lower lobectomy. There are new scattered patchy groundglass opacities in both lungs. Compressive atelectasis of the left lung.Pleural spaces: Stable small left pleural effusion. No pneumothorax.Bones and soft tissues: Stable sclerotic changes of the medial aspect of the left clavicle and lateral aspects of the left 5th and 6th ribs withevidence of pathologic fracture in the anterior aspect of the left 5th rib. Status post kyphoplasty of L1 and the L1-L2 intervertebral space. Exaggerated focal kyphosis centered at T7-T8.Upper abdomen:Stable scattered liver cysts. No splenomegaly. There is some mild right adrenal thickening which is similar to prior exam. No left adrenal nodularity. Pancreas is within normal limits.IMPRESSION:1. Noevidence of pulmonary embolism.2. New scattered bilateral patchy groundglass opacities are concerning for superimposed infection/inflammation.3. Stable small left pleural effusion and post- treatment changes of the left hemithorax.4. 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 Other processes such as influenza pneumonia and organizing pneumonia, as can be seen with drug toxicity and connective tissue di sease, can cause a similar imaging pattern. [[id number]]This is a preliminary resident report and has not been reviewed by an attending radiologist.FINAL FACULTY IMPRESSION:I agree with the above preliminary report with the following additional comments/modifications:1. There is eccentric chronic thrombus within the left main and interlobar arteries, extending from the original left lower lobectomy left lower lobe stump thrombus visible on studies of 08/23/2019, 10/10/2021, 12/20/2019. This thrombus is, however, unchanged from 02/11/2020. 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 No peripheral acute pulmonary embolic diseaseappreciated.2. Some increase of left-sided pleural effusion/thickening, extending into the left lungapex. Surveillance advised.3. 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 New patchy bilateral groundglass abnormalities are consistent with Covid 19.I personally reviewed these image(s) along with the resident's/fellow's interpretations, certify that if a procedure was performed I was physically present, and agree with the final report.MD Maddie Davenport (In-House)2020-02-28 05:54:35 Test Item Value Reference Range Interpretation Comments Troponin T (test code = 34 ng/L <=18 H < 19 ng/L 9384) Rodriguez ggest retest at 3 to 6 hours later to rule o ut myocardial infarction >= 1 9 to <=52 ng/L Possible myocar dial injury. Sugges t retest at 3 abndar rs. - a change of < 20 ng/L, retest at 6 bandar rs - a change of >= 20 ng/L, suggestive of myocardial infarction > 52 ng/L Suggest sudhir of myocardial infa rction Critical value will be reported when c Lidia isf > 52 ng/L and o nly reported for th e first in a series. He molyzed specimens with Hemolysis Index >100 (100 mg/dl or m oderate hemolysis) may cause interferences a nd falsely low res ults. Lab Interpretation Abnormal (test code = 63556-3) MD PickettCOVID-19 (SARS CoV-2) PCR-Symptomatic [id number] 05:51:06 Test Item Value Reference Range Interpretation Comments COVID19 (SARS Not Detected Not Detected This test is a CoV-2) Result qualitative (test code = reverse-transcr iptase 19627-8) polymerase rebeca n reaction (RT-PC R) developed for t he Robert VIKTOR 680 0 system and inte nded for the detecti on of SARS CoV-2 RNA in human nasophary ngeal specimens from patients who me et COVID-19 clinic al and/or epidemio logical criteria. This assay has been approv ed by the FDA for use only under Emergency Use Authorization ( EUA) in laboratories th at have been CLIA-certi fied to perform moderate-comple xity and high-comple xity tests. The perf ormance characteristics of this assay were verified by the Microbiology Laboratory at [facility]. Results must be interpreted within the context of all relevant clinic al and laboratory find ings and should not form the sole basis for a diagnosis or tr eatment decision.Automation Manager al controls are in cluded to assess for p ossible amplification inhibitors. If inhibition is detected, testi ng is repeated and if inhibition is confirmed the s pecimen is resulted as "Invalid". "Inconclusive" results are due to part ial amplification o f SARS-CoV-2 targ ets and indicates low a cecy of virus presen t in the specimen at or near the limit of detection. Whe n an "Invalid" or "Inconclusive" results occur, it is recommended to wait 3 days before sub mitting a new specimen for testing if clin ically indicated. COVID19 SARS RESOLUTE PROFESSIONAL Swab Source (test code = 32532) YEFRI (test code Patient is = YEFRI) symptomatic and has the following indication:->Cough Patient is symptomatic and has the following indication:->Short ness of Breath MD PickettRespiratory PCR Panel, RESOLUTE PROFESSIONAL [id number] 03:32:01 Test Item Value Reference Range Interpretation Comments Adenovirus (test code = 4748) Not Detected Not Detected Coronavirus 229E (test code = Not Detected Not Detected 5349) Coronavirus HKU1 (test code = Not Detected Not Detected 5350) Coronavirus NL63 (test code = Not Detected Not Detected 5351) Coronavirus OC43 (test code = Not Detected Not Detected 5352) Human Metapneumovirus (test code Not Detected Not Detected = 6401) Human Rhinovirus/Enterovirus Not Detected Not Detected (test code = 7212) Influenza A (test code = 5618) Not Detected Not Detected Influenza A H1 (test code = Not Detected Not Detected 5619) Influenza A H1 2009 (test code = Not Detected Not Detected 5620) Influenza A H3 (test code = Not Detected Not Detected 5621) Influenza B (test code = 5622) Not Detected Not Detected Parainfluenza 1 (test code = Not Detected Not Detected 6779) Parainfluenza 2 (test code = Not Detected Not Detected 6780) Parainfluenza 3 (test code = Not Detected Not Detected 6781) Parainfluenza 4 (test code = Not Detected Not Detected 6782) Respiratory Syncytial Virus Not Detected Not Detected (test code = 7157) Bordetella pertussis (test code Not Detected Not Detected = 3134) Chlamydiophila pneumoniae (test Not Detected Not Detected code = 5139) Mycoplasma pneumoniae (test code Not Detected Not Detected = 6203) MD PickettAntibody [id number] 03:04:16 Test Item Value Reference Range Interpretation Comments ABSC. (test code = 890-4) Negative ABSC MD [id number] 03:04:15 Test Item Value Reference Range Interpretation Comments ABORh. (test code = 882-1) O POS MD PickettClot Expiration [id number] 03:04:14 Test Item Value Reference Range Interpretation Comments T & S Expiration (test code = 03/01/2020 5318) MD Iraheta Troponin [id number] 02:20:30 Test Item Value Reference Range Interpretation Comments POC CTNI (test 0.03 ng/mL 0-0.08 This cTnI kaylah t is performed code = 06447-1) by the Point -of-Care analyzer method ,and the result may be d ifferent from the Clinic al LaboratoryMetho d. Abnormal test results ar e recommended for confirmatorytes t by Clinical labora tory method. Patients with n ormal testresults but clinically suspicious for acute myocardial infa rctionshould be tested by Cl inical Laboratory meth od. POC Clean Dev Yes (test code = 6672) MD PickettPartial Thromboplastin [id number] 01:56:20 Test Item Value Reference Range Interpretation Comments PTT (test code = 6773) 27.6 24.2- 36.0 second(s) MD PickettProthrombin Time with [id number] 01:56:19 Test Item Value Reference Range Interpretation Comments PT (test code = 6746) 14.0 12.0- 14.3 second(s) INR (test code = 5973) 1.11 0.90-1.10 H Lab Interpretation (test code = Abnormal 15598-6) MD [id number] 01:53:44 Test Item Value Reference Range Interpretation Comments CK MB (test code = 5209) <2.0 <=5.3 ng/mL MD PickettCreatine [id number] 01:53:43 Test Item Value Reference Range Interpretation Comments CK (test code = 5206) 69 U/L 20-180 MD PickettFractionated [id number] 01:52:58 Test Item Value Reference Range Interpretation Comments Bili Total (test 0.8 mg/dL <=1.2 Indocyanine Green (ICG) code = 5096) may cause false ly elevated biliru bin results. Total and direct bilirubin must not be measured from s amples containing indo cyanine green. False el evation of total bilirubin can be seen in patient s with IgG concentrations above 28 g/L. Bili Direct (test 0.3 mg/dL <=0.3 Indocyanin e Green (ICG) code = 5094) may cause false ly elevated biliru bin results. Total and direct bilirubin must not be measured from s amples containing indo cyanine green. Bili Indirect (test 0.5 mg/dL 0-0.9 code = 5095) MD PickettTotal [id number] 01:52:54 Test Item Value Reference Range Interpretation Comments Total Protein (test code = 7649) 5.8 g/dL 6.4-8.3 L Lab Interpretation (test code = Abnormal 41171-1) MD PickettAlbumin [id number] 01:52:51 Test Item Value Reference Range Interpretation Comments Albumin Lvl (test code = 4763) 3.3 3.5- 5.2 gm/dL L Lab Interpretation (test code = Abnormal 61457-3) MD PickettAlkaline [id number] 01:52:50 Test Item Value Reference Range Interpretation Comments Alk Phos (test code = 4768) 80 U/L 35-104 MD PickettAspartate [id number] 01:52:49 Test Item Value Reference Range Interpretation Comments AST (test code = 4731) 26 U/L <=32 MD [id number] 01:52:48 Test Item Value Reference Range Interpretation Comments ALT (test code = 4705) 15 U/L <=33 MD PickettEchocardiogram 2D [id number] 00:00:00 Test Item Value Reference Range Interpretation Comments BSA (test code = 5500946228) 1.88 m2 MD PickettX-ray Chest 2 [id number] 20:47:28Interval increase of partial opacification of the left lower hemithorax that may represent a combination of pleural effusion and atelectasis. Interface, Radiology Results In - 02/27/2020 3:49 PM CDTFULL RESULT:Examination: XR CHEST 2 VW, 02/27/2020 3:41 PMClinical History: Carcinoma of bladderSecondary malignant neoplasm of left lungDyspnea, not otherwise specifiedIndication: Other:, hx of recent radiation pneumonitis. Reporting feeling "fluid in lungs when laying down". Dyspnea is stable, COVID-19 Not SuspectedComparison: September 08, 2019Technique: Posteroanterior, lateral and dual-energy radiographs of the chest.Findings:Interval increase of small/moderate sized left pleural effusion.Postsurgical changes in the left lung. Postradiation changes in the left perihilar region. Left lower lung opacities. Right lung is clear.Cardiomediastinal silhouette is partially obliterated.Vertebroplasty siena nges in the upper lumbar spine.IMPRESSION:Interval increase of partial opacification of the left lower hemithorax that may represent a combination of pleural effusion and atelectasis.MD Doan [id number] 13:54:45 Test Item Value Reference Range Interpretation Comments T4 Free (test code 1.09 ng/dL 0.93-1.7 Testing P erformed at [facility] = 7502) Lab Field Assistant [facility], [address], [place] [address] MD [id number] 13:54:44 Test Item Value Reference Range Interpretation Comments TSH (test code = 3.22 0.27- 4.20 mcunit/mL Not e: New Methodology 7578) and Reference R bruno change effectiv e 11/03/2017 at 14 00 Testing Performed at [facility] Lab Field Assistant [facility], [address], [address], [place] [address] MD PickettLipase [id number] 13:39:16 Test Item Value Reference Range Interpretation Comments Lipase Lvl (test code = 12 U/L 13-60 L Test ing Performed at 6165) [facility] Lab Ambulat ory Care [facility], [address], [place] [address] Lab Interpretation (test Abnormal code = 83953-7) MD PickettAmylase [id number] 13:39:15 Test Item Value Reference Range Interpretation Comments Amylase Lvl (test code 45 U/L 28-100 Testi ng Performed at [facility] = 4806) Lab Field Assistant [facility], [address], [place] [address] MD PickettMRDamaris THORACIC LUMBAR SPINE WITH AND WITHOUT [id number] 19:25:05 1. Intervening vertebroplasty at L1 with decrease in soft tissue tumor. 2. 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 So sagittal images through the lumbar spine from CT of the abdomen and pelvis of February 11, 2020Technique: Axial and sagittal images of the thoracic and lumbar spine were performed using varying sequences with and without intravenous contrast. Findings: Drier Operator Helper image shows mild diskogenic degenerative change in the cervical spine with loss of cervical lordosis which may be positional or may indicate spasm.Thoracic spine: A tiny focus of enhancement is again noted. It was previously described as being in the transverse process of T10, but I believe it is actually in the lamina. Please see series 19, image 19, the post contrast axials. It may be either in T10 or T11. No other abnormal signal or enhancement is identified that suggests osseous metastatic disease. There is abnormal signal at the left lung base that would be better evaluated with dedicated imaging. A biopsy in July 2019 found metastatic cancer in the area of the left lower lobe.Lumbar spine: There are findings consistent with vertebroplasty at L1. CT indicates that cement extruded from the L1 vertebral body into the disk. Abnormal signal is now present in the upper L2 vertebral body. Its lower margin has a rounded contour centered on the extruded cement, so I suspect this is a mechanical rather than a neoplastic abnormality. There is again some normal signal in theL1 vertebral body near the superior endplate. There is no longer any identifiable soft tissue component to the presumed tumor at L1.No other abnormal signal or enhancement is identified that suggests osseous metastatic disease.There is moderate disk dehydration at L3-L4 and L4-L5 with a high signal intensity zone posteriorly at L4-L5 consistent with an annular tear. The L5-S1 disk is again dehydratedand decreased in height. Tarlov cysts are noted in the area of S2.IMPRESSION:1. Intervening vertebroplasty at L1 with decrease in soft tissue tumor.2. Abnormal signal at L2 that probably is mechanical in origin rather than neoplastic.MD PickettVitamin D [id number] 17:29:42 Test Item Value Reference Range Interpretation Comments Vitamin D 25 OH (test 46 ng/mL 30-100 Refere nce Range: code = 8018) Deficiency: <10 ng/mLInsuff iciency: 10-29 ng/mLSufficienc y: 30-100 ng/mLPotential toxicity: >10 0 ng/mL MD PickettHemoglobin [id number] 14:33:36 Test Item Value Reference Range Interpretation Comments A1C (test code = 4632) 5.8 % 4.3-5.6 H HbA1c values >=6.5% are diagnostic of diabetes mellitus.Diagno sis should be confi rmed by repeat testing.Therape utic Action suggeste d: >8.0% HbA1c; Go al oftherapy: <7.0 % HbA1c Lab Interpretation (test Abnormal code = 14778-5) MD PickettMRI Thoracic Spine without [id number] 19:01:25Limited examination without evidence of metastatic disease in the thoracic spine. Iatrogenic changesat L1.FULL RESULT: Examination: MRI THORACIC LUMBAR SPINE WO CONTRAST, February 11, 2020 Clinical History: Secondary malignant neoplasm of bone (bladder cancer) Indication: evaluate disease progression Comparison: December 31, 2019 Technique: Sagittal images of the thoracic spine were performed using varying sequences without intravenous contrast. The intention had been to continue with our usual protocol for MRI with and without contrast of the thoracic and lumbar spine, but the patient preferred to stop the examination. I am told she had a headache. She may return at another time to finish the examina tion if she desires. Findings: A 3 or 4 mm focus of enhancement in the right lamina of T10 was previously best seen on the axial postcontrast images. On today's examination we do not have axial postcontrast images. It is not identified on the sagittal images. No focal area of abnormal signal is identif ied in the thoracic spine to suggest metastatic disease. Signal dropout in the L1 vertebral body andsome increased T2 signal running along the pedicles into the vertebral body are presumably due to intervening kyphoplasty that occurred at that level January 24, 2020. There is a mild scoliosis. Mild hypertrophic change is present at the T5-T8 levels.MD PickettCT Chest Abdomen Pelvis with Contrast 2020-02-11 16:06:00 Thorax:1. Stable subcentimeter nodule in the right lung, nonspecific, to be followed.2. Evolving postradiation changes in the remaining left lung. Stable small left pleural effusion, nonspecific, possibly reactive/postsurgical.3. Lesion in the left clavicle, slightly more prominent, consistent with metastatic disease.4. Stable left rib lesions, likely further metastases. Abdomen and Pelvis:1. Nodularity in both adrenal glands, difficult to characterize, but possibly early developing metastases, to be followed closely.2. Stable sclerotic lesion in the right iliac bone, consistent with a metastasis.3. Interval vertebroplasty in L1 and L2. [This document was created using a voice recognition transcribing system. Incorrect words or phrases may have been missed during proof reading. Please interpret accordingly or contact me for clarification if necessary.] Interface, Radiology Results In - 02/11/2020 11:08 AM CDTFull Result:Examination: CT CHEST ABDOMEN PELVIS W CONTRAST on 02/11/2020 10:20 AMClinical History: Carcinoma of bladder Bladder cancer, primary, Cancer metastatic to lung, Cancermetastatic to bone, establish baseline prior to start of new therapy for metastatic bladder cancer.Left lower lobe lobectomy, resection of pericardial and left atrium, 07/31/2019. Radiotherapy, L1, left lower lobe, September 2019; right iliac bone, December 2019 Cystectomy, April 2018.Indication: Restaging Comparison: CT dated 12/20/2019 Technique: CT chest with IV contrast, CT abdomen and pelvis with IV contrast was obtained. 2-3 mm helical sections following oral and IV contrast, with coronal and sagittal reformats (rectal contrast was not administered). Findings: THORAX: There is stable minimal soft tissue thickening in the left hilar region (series 3 image 53), probably related to post surgical changes, which can be followed. No abnormally enlarged mediastinal, right hilar, or left axillary nodes are identified. Evaluation of the right axillary and subpectoral region is degraded by beam hardening artifact from the IV contrast administration that has been implemented.There is a stable subcentimeter nodule in the right upper lobe (series 4 image 39), stable back to 06/27/2019, which remainsnonspecific. Postsurgical changes are noted in the left hemithorax. There are evolving postradiationchanges in the remaining left lung (series 4 image 51). No definite new pulmonary nodules or masses are identified.There is a stable small left pleural effusion, likely reactive/postsurgical.Again seenis irregular lucency and sclerosis in the medial aspect of the left clavicle (series 3 image 22), pro bably more prominent than on 12/20/2019, and definitely more extensive than on 10/11/2019, consistent with metastatic disease. There is a stable sclerotic lesion involving the anterior aspect of the left fifth rib (series 3 image 77), again with signs of a pathological fracture. There is a stable small sclerotic focus in the lateral aspect of the left sixth rib (series 3 image 67).ABDOMEN and PELVIS:Scattered cysts are noted in the liver. There are other scattered subcentimeter hypodensities in the liver, somewhat small to characterize, likely cysts as well. No definite new focal liver lesions are identified.The spleen and pancreas remain unremarkable. No focal splenic lesions or splenomegaly. The gallbladder appears grossly unremarkable. No evidence of biliary or pancreatic duct dilatation.There is minimal nodularity in both adrenal glands (series 3 image 180, 175), more prominent than on 08/23/2019, indeterminate, to be followed.Both kidneys remain unremarkable, apart from scattered subcentimeter hypodensities in both kidneys, somewhat small to characterize, likely cysts. No hydronephrosis.No gross upper tract filling defects are identified.No abnormally enlarged retrocrural, anterior diaphragmatic, retroperitoneal, mesenteric, pelvic, or inguinal nodes are identified.Postsurgical changes are noted in the pelvis, without gross evidence of residual or recurrent disease. Trace fluid is noted in the surgical bed (series 3 image 302). Sigmoid diverticulosis is noted. A stoma is noted in the right anterior abdominal wall.Atherosclerotic changes are noted.There is a stable sclerotic focus in the right iliac bone (series 3 image 272), larger than on 10/11/2019 and 08/23/2019, consistent with a metastasis. There is a stable small sclerotic focus in the sacrum (series 3 image 268), stable back to 08/23/2019, likely benign. There has been an interval vertebroplasty of L1 and L2 (series 3 image 194, 186).IMPRESSION:Thorax:1. Stable subcentimeter nodule in the right lung, nonspecific, to be followed.2. Evolving postradiation changes in the remaining left lung. Stable small left pleural effusion, nonspecific, possibly reactive/postsurgical.3. Lesion in the left clavicle, slightly more prominent, consistent with metastatic disease.4. Stable left rib lesions, likely further metastases.Abdomen and Pelvis:1. Nodularity in both adrenal glands, difficult to characterize, but possibly early developing metastases, to be followed closely.2. Stable sclerotic lesion in the right iliac bone, consistent with a metastasis.3. Interval vertebroplasty in L1 and L2.[This document was created using a voice recognition transcribing system. Incorrect words or phrases may have been missed during proofreading. Please interpret accordingly or contact me for clarification if necessary.]MD Pickett POC [id number] 14:20:25 Test Item Value Reference Range Interpretation Comments POC Crea (test code 1.0 mg/dL 0.6-1.3 Medicati ons, especially = 87041-6) hydroxyurea or supplements, rodriguez ch as ascorbate, can interfere with test resul ts causing a falsely and significantlyhi gher result than exp ected. If a problem is rodriguez spected with a patient' s result, a sample should be sent to the laborato for confirmatory te sting. POC eGFR-AA (test 68 >=60 Normal eGF R >= 60 code = 27775-4) mL/min/1.73 m2 mL/min/1.7 3 m2 The eGFR is calculated u sing the CKD-EPI equatio n. The eGFR declines w ith age. eGFR <60 mL/min /1.73 m2 is considered a s "decreased" Thi s equation should only be used for patients 18 and older. According to th e National Kidney [employer] on's Kidney Disease Outcome Quality Initiat sudhir (KDOQI) classif ication and 2012 Kidney Disease Improving Globa l Outcomes (KDIGO) Clinica l Practice Guideline, the stage of CKD should be c ategorized based on estima celina GFR. Stage Descripti on GFR mL/min/1.73 m21 Kidney damage with nor mal or high GFR >= 902 Kidney damage with mil d decrease in GFR 60-89 3a Mild to moderate decrea se in GFR 45-593b Mode rate to severe decrease in GFR 30-444 Severe decrease in GFR 15-29 5 Kidney failure <15 (or dialysis) POC eGFR-BOLIVAR (test 59 >=60 L Normal eG FR >= 60 code = 33557-7) mL/min/1.73 m2 mL/min/1.7 3 m2 The eGFR is calculated u sing the CKD-EPI equatio n. The eGFR declines w ith age. eGFR <60 mL/min /1.73 m2 is considered a s "decreased" Thi s equation should only be used for patients 18 and older. According to th e National [employer] on's Kidney Disease Outcome Quality Initiat sudhir (KDOQI) classif ication and 2012 Kidney Disease Improving Globa l Outcomes (KDIGO) Clinica l Practice Guideline, the stage of CKD should be c ategorized based on estima celina GFR. Stage Descripti on GFR mL/min/1.73 m21 Kidney damage with nor mal or high GFR >= 902 Kidney damage with mil d decrease in GFR 60-89 3a Mild to moderate decrea se in GFR 45-593b Mode rate to severe decrease in GFR 30-444 Severe decrease in GFR 15-29 5 Kidney failure <15 (or dialysis) POC Clean Dev (test Yes code = 6672) Lab Interpretation Abnormal (test code = 10660-1) MD [id number] 15:17:02 Test Item Value Reference Range Interpretation Comments LDH (test code = 6111) 224 U/L 135-214 H Resul ts greater than 1651 U/L may no t be reliable due to matrix effect w ith extended diluti on as it exceeds the coin rolling machine operator s recommended l imit. Caution should be exercised when interpreting rodriguez ch values and done in conjunction wit h clinical contex t. Testing Perform ed at [facility] Lab Ambulat [facility], [address], [address], [place], [place] [phone] Lab Interpretation (test Abnormal code = 01024-5) MD PickettIR Guided Kyphoplasty [id number] 13:17:13Date of Procedure: 01/24/20 Attending Physician: Oscar Gray MD Psychotherapist Social Worker: Shahram Ferreira MD Pre Procedure Diagnosis: Secondary malignant neoplasm of bone (Urothelial carcinoma) Post Procedure Diagnosis: Unchanged Indication: Painful pathologic compression fracture of L1 The patients clinicalhistory was reviewed in detail. On the basis of available clinical data, the procedure is in accordance with commonly accepted standards of clinical practice and does not deplete hospital capacity needed to cope with COVID-19. Title of Procedure:Percutaneous Image-Guided radiofrequency ablation of L1 l esionPercutaneous Image-Guided kyphoplasty of L1 Operative Findings: Successful percutaneous Image-Guided radiofrequency ablation of L1 lesion Successful percutaneous Image-Guided kyphoplasty of L1 Consent: The procedure, risks, indications and alternatives were explained. All questions were answered and informed consent was obtained. I have reviewed the history and physical dictated by the mid-level practitioner / fellow. Sedation/Anesthesia: Anesthesia provided by Anesthesia Department. Procedure in Detail: A time out was performed prior to the start of the procedure and the correct patient, procedure, presence of consent, site, and side were confirmed with all members of the team. The patient was placed prone on the procedure table. The skin overlying the L1 vertebral body was prepped and draped in standard sterile fashion. Under CT guidance two 10g Osteocool access needles were advanced via a bipedicular trajectory into the L1 vertebral body. Next, measuring drills were advanced intothe vertebral body to measure the appropriate ablation probe. Two OsteoCool 7mm active tip ablation probes were then advanced into the vertebral body, and ablation was performed according to the prescribed parameters. The ablation probes were then removed. Cement was then injected through the vertebral body under continuous CT imaging. Care was taken to ensure there was no cement leakage out of the vertebral body. All needles were then removed, and hemostasis was obtained with manual compression. Additional Comments: None Estimated Blood Loss: Minimal Specimens Removed: No Immediate Complications: None Disposition: PACU Plan: 2 week follow-up phone call Weight bearing and mobility as tolerated I certify my physical presence at the time of the procedure. I personally reviewed the image(s) and the resident's / fellow's interpretation and agree with the written report.MD Cotter CT GUIDED RADIOFREQUENCY ABLATION BONE/SOFT [id number] 13:16:19Date of Procedure: 01/24/20 Attending Physician: Oscar Gray MD Psychotherapist Social Worker: Shahram Ferreira MD Pre Procedure Diagnosis: Secondary malignant neoplasm of bone (Urothelial carcinoma) Post Procedure Diagnosis: Unchanged Indication: Painful pathologic compression fracture of L1 The patients clinicalhistory was reviewed in detail. On the basis of available clinical data, the procedure is in accordance with commonly accepted standards of clinical practice and does not deplete hospital capacity needed to cope with COVID-19. Title of Procedure:Percutaneous Image-Guided radiofrequency ablation of L1 l esionPercutaneous Image-Guided kyphoplasty of L1 Operative Findings: Successful percutaneous Image-Guided radiofrequency ablation of L1 lesion Successful percutaneous Image-Guided kyphoplasty of L1 Consent: The procedure, risks, indications and alternatives were explained. All questions were answered and informed consent was obtained. I have reviewed the history and physical dictated by the mid-level practitioner / fellow. Sedation/Anesthesia: Anesthesia provided by Anesthesia Department. Procedure in Detail: A time out was performed prior to the start of the procedure and the correct patient, procedure, presence of consent, site, and side were confirmed with all members of the team. The patient was placed prone on the procedure table. The skin overlying the L1 vertebral body was prepped and draped in standard sterile fashion. Under CT guidance two 10g Osteocool access needles were advanced via a bipedicular trajectory into the L1 vertebral body. Next, measuring drills were advanced intothe vertebral body to measure the appropriate ablation probe. Two OsteoCool 7mm active tip ablation probes were then advanced into the vertebral body, and ablation was performed according to the prescribed parameters. The ablation probes were then removed. Cement was then injected through the vertebral body under continuous CT imaging. Care was taken to ensure there was no cement leakage out of the vertebral body. All needles were then removed, and hemostasis was obtained with manual compression. Additional Comments: None Estimated Blood Loss: Minimal Specimens Removed: No Immediate Complications: None Disposition: PACU Plan: 2 week follow-up phone call Weight bearing and mobility as tolerated I certify my physical presence at the time of the procedure. I personally reviewed the image(s) and the resident's / fellow's interpretation and agree with the written report.MD PickettCOVID-19 (SARS-CoV-2) PCR-Asymptomatic [id number] 22:25:26 Test Item Value Reference Range Interpretation Comments COVID19 (SARS Not Detected Not Detected This test is a CoV-2) Result qualitative (test code = reverse-transcr iptase 63073-1) polymerase rebeca n reaction (RT-PC R) developed for t he [employer] VIKTOR 680 0 system and inte nded for the detecti on of SARS CoV-2 RNA in human nasophary ngeal specimens from patients who me et COVID-19 clinic al and/or epidemiological criteria. This assay has been approv ed by the FDA for use only under Emergency Use Authorization ( EUA) in laboratories that have been CLIA-certified to perform moderate-comple xity and high-comple xity tests. The performance characteristics of this assay were verified by the Microbiology Laboratory at [facility]. Results must be interpreted within the context of all relevant clinic al and laboratory find ings and should not form the sole basis for a diagnosis or treatment decision.Automation Manager al controls are in cluded to assess for possible amplification inhibitors. If inhibition is detected, testi ng is repeated and if inhibition is confirmed the specimen is res ulted as "Invalid". "Inconclusive" results are due to partial amplifi cation of SARS-CoV-2 targets. When t his occurs, results are confirmed by re peat testing before issuing an "Inconclusive" result. When a n "Invalid" or "Inconclusive" results occur, it is recommended to wait a minimum of 3 da ys before submitti ng a new specimen fo r testing if clin ically indicated. COVID19 SARS RESOLUTE PROFESSIONAL Swab Source (test code = 76984) COVID19 SARS Pre-Out of OR Indication (test Procedure code = 84783) MD PickettAnion [id number] 19:35:51 Test Item Value Reference Range Interpretation Comments Anion Gap (test code = 9325) 15 4- 14 mEq/L H Lab Interpretation (test code = Abnormal 74172-7) MD PickettChloride [id number] 19:35:50 Test Item Value Reference Range Interpretation Comments Chloride (test code = 5279) 104 98- 107 mEq/L MD [id number] 19:35:49 Test Item Value Reference Range Interpretation Comments Potassium Lvl (test code = 6854) 4.2 3.5- 5.1 mEq/L MD PickettSodium [id number] 19:35:48 Test Item Value Reference Range Interpretation Comments Sodium Lvl (test code = 7355) 142 136- 145 mEq/L MD PickettCarbon Dioxide [id number] 19:35:46 Test Item Value Reference Range Interpretation Comments CO2 (test code = 5227) 23 22- 29 mEq/L MD PickettGlucose, [id number] 19:35:45 Test Item Value Reference Range Interpretation Comments Glucose Random (test 94 mg/dL 70-199 Effecti ve 02/11/16, the code = 9360) glucose referen ce intervals have been updated based o n [place] [employer] jessica delines (Standards of edical Care in Diabete s 2016. Diabetes Care 2 016; 39: S13-S22).Fastin g blood glucose:Normal: 70 99 mg/dLImpaire d fasting glucose (increa sed risk for diabetes or pre-diabetes): 100 125 mg/dLDiabet es mellitus: >/=1 26 mg/dL Random blood glucose:Normal: 70 199 mg/dLNote: Random glucose >100 mg /dL is associated with increased risk for diabetes MD PickettDamaris Shoulder Left with and without [id number] 18:45:261. Metastatic involvement of the medial left clavicle and ipsilateral scapular spine. Worsening medial clavicular permeation and sclerosis demonstrated on prior CT when compared with baseline CT 10/11/2019.2. Left posterior 2nd rib fracture concerning for an underlying metastasis.Interface, Radiology Results In - 01/21/2020 1:47 PM CDTFULL RESULT:Examination: MRI SHOULDER LEFT W WO CONTRAST, 01/21/2020 12:12 PM.Clinical History: A 64-year-old female patient with metastatic bladder cancer. Status post radiation therapy to chest/lung in 09/25/2019 and to the T12-L2 segment completed 10/30/2019. On treatment with Pembrolizumab since 10/16/2019.Indication: Shoulder pain, X-ray shoulder completed, Restaging - Assessment pre-operative, eval disease left clavicleComparison: Bilateral humerus and shoulder x-ray dated 01/02/2020. Nuclear medicine bone scan dated 01/01/2020. CT 12/20/[address] 10/11/2019.Technique: Multiplanar multisequence magnetic resonance imaging of the left shoulder was performed without and with intravenous administration of contrast.Findings: Bones:* T1 hypointense, T2 hyperintense enhancing bone marrow infiltration of the medial clavicle is demonstrated, extending for at least 7.4 cm (series 10 image 8). Review of CT 12/20/2019 demonstrates mild sclerosis and permeative appearance of the medial left clavicle (series 8 image 27), that has worsened in comparison with CT 10/11/2019 (series 13 image 11).* T1 hypointensity, T2 hyperintensity and enhancement indicative of metastatic a involvement of the left scapular spine is demonstrated, measuring approximately 5.7 x 1.9 x 2.7 cm (series 10 image 12 and series 7 image 6).* Focal enhancement and T1 hypointensity demonstrated within the left posterior 2nd rib (series 10 image 3 and series 8 image 4) concerning for fracture and underlying metastatic lesion.* Review of prior nuclear medicine bone scan 12/31/2019 d emonstrate increased radiotracer uptake including the left scapular spine and medial clavicle lesions.Lymph nodes:* No supraclavicular axillary or left internal mammary lymphadenopathy demonstrated.Soft tissues:* No definite soft tissue mass seen.Rotator cuff:* Increased T2 signal underlying the posterior supraspinatus footprint indicate small partial tear (series 4 image 13)* The labrum, and thesubscapularis and infraspinatus tendinosis appear preserved.Other:* Left sided pleural effusion, associated with volume loss and enhancement of the left lower lobe, possibly in the context of radiation pneumonitis as seen on prior CT 12/20/2019 IMPRESSION:1. Metastatic involvement of the medial leftclavicle and ipsilateral scapular spine. Worsening medial clavicular permeation and sclerosis demonstrated on prior CT when compared with baseline CT 10/11/2019.2. Left posterior 2nd rib fracture concerning for an underlying metastasis.MD PickettDamaris Brain with and without [id number] 21:45:55There is no evidence of metastatic disease to the brain. There does appear to be a bony metastasis to the posterior left frontal skull, skull confined to the bone. Interface, Radiology Results In - 01/10/2020 4:48 PM CDTFULL RESULT:EXAMINATION: MRI BRAIN W WO CONTRAST on 01/10/2020 3:28 PMHISTORY: Dyspnea, not otherwise specifiedPneumonitisINDICATION: Bladder cancerCOMPARISON: NoneTECHNIQUE: Multi-sequence MRI of the brain with and without intravenous contrast as per standard departmental protocol.FINDINGS: INTRACRANIAL: The brain parenchyma is unremarkable. There is no abnormal parenchymal or leptomeningeal enhancement. There is very minor periventricular leukoareosis.There is no evidence of acute infarction, new hemorrhage, or hydrocephalus. The visualized major intracranial vascular flow voidsare unremarkable.EXTRA-CRANIAL SOFT TISSUES: There is a bony metastasis of about 22 mm in the posterior left frontal skull. This does not appear to extend intracranially.ORBITS: The orbital structures unremarkable.SINUSES: The paranasal sinuses and mastoid air cells are clear.IMPRESSION:There is no evidence of metastatic disease to the brain.There does appear to be a bony metastasis to the posterior left frontal skull, skull confined to the bone.MD PickettComplete PFT (Jay Jay, DLCO, LV)2020-01-10 00:00:00 Test Item Value Reference Range Interpretation Comments FVC (L) pre (test code = 2.245 L 2.616-4.076 L 9507) FEV1 (L) pre (test code = 1.535 L 1.939-3.173 L 9505) FEV1/FVC (%) pre (test code = 68.353 % 66.99-86.578 9509) DLCO_SB ml/(min*mmHg) (test 7.755 14.413- 31.000 L code = 9515) ml/(min*mmHg) DLCOc_SB ml/(min*mmHg) (test 8.158 14.413- 31.000 L code = 9516) ml/(min*mmHg) TLC (L) (test code = 9513) 4.022 L 4.179-6.285 L RV (L) (test code = 9514) 1.718 L 1.503-2.654 RV/TLC (%) (test code = 9517) 42.715 % 31.81-50.99 FVC (% pred) pre (test code = 67 % 9520) FEV1 (%pred) pre (test code = 60 % 9518) FEV1/FVC (% pred) pre (test 89 % code = 9522) TLC (% pred) (test code = 77 % 9526) RV (% pred) (test code = 83 % 9527) RV/TLC (% pred) (test code = 103 % 9528) DLCO_SB (% pred) (test code = 34 % 9529) DLCOc_SB (% pred) (test code 36 % = 9530) Lab Interpretation (test code Abnormal = 76121-3) MD PickettUrine [id number] 20:54:57 Test Item Value Reference Range Interpretation Comments Final Report (test code >= 100,000 cfu/ml A = 8488) Mixture of three or more enteric organisms present. Further identification upon request within 5 days. Path Review - Urine The results have been A (test code = 8483) reviewed and electronically signed by Pathologist:ALEJO PURCELL MD #[id number] Lab Interpretation Abnormal (test code = 07595-0) MD MortonA [id number] 18:31:35 Test Item Value Reference Range Interpretation Comments UA RBC (test code = 17 0- 2 /HPF H 7891) UA WBC (test code = 28 0- 2 /HPF H 7904) UA Mucous (test code = TRACE TRACE /HPF 7887) UA Bacteria (test code 1+ NOT SEEN /HPF A = 7870) UA Squam Epi (test OCC OCC /HPF code = 7896) YEFRI (test code = YEFRI) Some reporting parameters within the Urinalysis test have changed due to the implementation of new instrumentation in the [facility], allowing greater sensitivity of measurement. Urinalysis results reported by the [facility] using existing instrumentation, as well as Urinalysis testing performed manually or by backup methodology at the [facility] will remain relatively unchanged. New reporting parameters and units will now be reported for all campuses. Lab Interpretation Abnormal (test code = 09253-7) MD Butler [id number] 18:18:50 Test Item Value Reference Range Interpretation Comments UA Color (test code = 7877) Yellow Yellow UA Appear (test code = 7868) Hazy Clear A UA Glucose (test code = 7881) NEG NEG mg/dL UA Bili (test code = 7871) NEG NEG UA Ketones (test code = 7884) NEG NEG mg/dL UA Spec Grav (test code = 7894) 1.015 1.002-1.035 UA Blood (test code = 7872) Small NEG A UA pH (test code = 7909) 6.0 4.5-8.0 UA Protein (test code = 7890) NEG NEG mg/dL UA Urobilinogen (test code = 7903) NEG NEG UA Nitrite (test code = 7888) NEG NEG UA Leuk Est (test code = 7886) Moderate NEG A Lab Interpretation (test code = Abnormal 79477-2) MD PickettXR Clavicle [id number] 17:11:491. Blastic metastases in right mid humeral shaft, right iliac bone, right ischium and right proximal femoral shaft.2. Unremarkable clavicles.3. No acute or impending pathologic fracture.Interface, Radiology Results In - 01/02/2020 12:14 PM CDTFULL RESULT:Examination: XR Bilateral Shoulders (Bilateral Clavicles), Minimum 2 Views, and XR Bilateral Humeri: Minimum 2 Views, and XR Right Femur, 2 Views, 01/02/2020 11:55 AM.Clinical History: Bladder cancer.Indication: Assess for bone metastases.Comparison NoneTechnique: 2 views of each shoulder, AP and lateral views of bilateral humeri, and AP and lateral views of right femur, 01/02/2020.Findings:Right Shoulder:Mild degenerative changes are present at the right AC joint. No other bone or joint abnormality is seen. Right apical pleural thickening is noted. The visualized right lung is clear. The right clavicle is unremarkable.Left Shoulder mild widening of the left AC joint is seen. No other bone, joint or soft tissue abnormality is seen. The visualized left upper lung is clear. The left clavicle is unremarkable.Bilateral Humeri:A subtle sclerotic intramedullary lesion in the right mid humeral shaft without periosteal reaction or cortical breakthrough is present. The left humerus is unremarkable. No other bone, joint or soft tissue abnormality appreciated in the upper arms.Right Femur:A sclerotic lesion is seen in the right iliac bone. There alsoappears to be a sclerotic lesion in the right ischium with minimal cortical thickening along the obturator ring. Intramedullary sclerosis without periosteal reaction or cortical breakthrough in the right proximal femoral shaft is seen. No other bone, joint or soft soft tissue abnormality is noted.IMPRESSION:1. Blastic metastases in right mid humeral shaft, right iliac bone, right ischium and right proximal femoral shaft.2. Unremarkable clavicles.3. No acute or impending pathologic fracture.MD PickettXR Femur 2 Views [id number] 17:11:491. Blastic metastases in right mid humeral shaft, right iliac bone, right ischium and right proximal femoral shaft.2. Unremarkable clavicles.3. No acute or impending pathologic fracture.Interface, Radiology Results In - 01/02/2020 12:14 PM CDTFULL RESULT:Examination: XR Bilateral Shoulders (Bilateral Clavicles), Minimum 2 Views, and XR Bilateral Humeri: Minimum 2 Views, and XR Right Femur, 2 Views, 01/02/2020 11:55 AM.Clinical History: Bladder cancer.Indication: Assess for bone metastases.Comparison NoneTechnique: 2 views of each shoulder, AP and lateral views of bilateral humeri, and AP and lateral views of right femur, 01/02/2020.Findings:Right Shoulder:Mild degenerative changes are present at the right AC joint. No other bone or joint abnormality is seen. Right apical pleural thickening is noted. The visualized right lung is clear. The right clavicle is unremarkable.Left Shoulder mild widening of the left AC joint is seen. No other bone, joint or soft tissue abnormality is seen. The visualized left upper lung is clear. The left clavicle is unremarkable.Bilateral Humeri:A subtle sclerotic intramedullary lesion in the right mid humeral shaft without periosteal reaction or cortical breakthrough is present. The left humerus is unremarkable. No other bone, joint or soft tissue abnormality appreciated in the upper arms.Right Femur:A sclerotic lesion is seen in the right iliac bone. There alsoappears to be a sclerotic lesion in the right ischium with minimal cortical thickening along the obturator ring. Intramedullary sclerosis without periosteal reaction or cortical breakthrough in the right proximal femoral shaft is seen. No other bone, joint or soft soft tissue abnormality is noted.IMPRESSION:1. Blastic metastases in right mid humeral shaft, right iliac bone, right ischium and right proximal femoral shaft.2. Unremarkable clavicles.3. No acute or impending pathologic fracture.MD PickettXR Humerus 2 Views Minimum [id number] 17:11:491. Blastic metastases in right mid humeral shaft, right iliac bone, right ischium and right proximal femoral shaft.2. Unremarkable clavicles.3. No acute or impending pathologic fracture.Interface, Radiology Results In - 01/02/2020 12:14 PM CDTFULL RESULT:Examination: XR Bilateral Shoulders (Bilatera l Clavicles), Minimum 2 Views, and XR Bilateral Humeri: Minimum 2 Views, and XR Right Femur, 2 Views, 01/02/2020 11:55 AM.Clinical History: Bladder cancer.Indication: Assess for bone metastases.Comparison NoneTechnique: 2 views of each shoulder, AP and lateral views of bilateral humeri, and AP and lateral views of right femur, 01/02/2020.Findings:Right Shoulder:Mild degenerative changes are present at the right AC joint. No other bone or joint abnormality is seen. Right apical pleural thickening is noted. The visualized right lung is clear. The right clavicle is unremarkable.Left Shoulder mild widening of the left AC joint is seen. No other bone, joint or soft tissue abnormality is seen. The visualized left upper lung is clear. The left clavicle is unremarkable.Bilateral Humeri:A subtle sclerotic intramedullary lesion in the right mid humeral shaft without periosteal reaction or cortical breakthrough is present. The left humerus is unremarkable. No other bone, joint or soft tissue abnormality appreciated in the upper arms.Right Femur:A sclerotic lesion is seen in the right iliac bone. There alsoappears to be a sclerotic lesion in the right ischium with minimal cortical thickening along the obturator ring. Intramedullary sclerosis without periosteal reaction or cortical breakthrough in the right proximal femoral shaft is seen. No other bone, joint or soft soft tissue abnormality is noted.IMPRESSION:1. Blastic metastases in right mid humeral shaft, right iliac bone, right ischium and right proximal femoral shaft.2. Unremarkable clavicles.3. No acute or impending pathologic fracture. MD Lawton CERVICAL THORACIC LUMBAR SPINE W WO [id number] 20:49:28 Mild increase in extent of vertebral body enhancement and adjacent paraspinal soft tissue enhancement at L1. There remains no epidural tumor or conus medullaris compression. There is no loss of vertebral body height at L1. Stable punctate enhancing focus within the right transverse process of T10, which may represent a tiny metastatic lesion. Otherwise, no well-defined new vertebral body metastatic lesions involving the cervical, thoracic or lumbar spine. Occasional sonar subsystem equipment operator errors may have occurred due to the inherent limitations of the voice recognition software and incorrect words/phrases may have been missed during proofreading. Please interpret using context where substitutions have occurred. Interface, Radiology Results In - 12/31/2019 3:51 PM CDTFULL RESULT: Examination: MRI CERVICAL THORACIC LUMBAR SPINE W WO CONTRAST, 12/31/2019 3:13 PM.Clinical History: Metastatic urothelial carcinoma Secondary malignant neoplasm of vertebral columnIndication: [id number], 3 month follow upComparison: MRI lumbar spine, 09/04/2019; MRI thoracic spine, 09/12/2019Technique: Multiplanar, multisequence magnetic resonance imaging of the cervical, thoracic and lumbosacral spine was performed withoutand with intravenous contrast. Findings:There is normal cervical, thoracic, and lumbar spinal alignment and vertebral body height.There are no enhancing lesions within the cervical spine.There is a punctate focus of enhancement within the right transverse process at T10 (series 20, image 12), which may represent a tiny metastatic lesion. This is without significant change from the prior study from 09/12/2019.There is mild increase in extent of enhancement involving the L1 vertebral body and adjacent paraspinal soft tissues which currently measures 4.8 cm transverse x 3.1 cm AP (series 19, was 5); previously measuring 3.7 x 2.7 cm. There is no well-defined epidural tumor at this level. There is no conus medullaris compression.There is no leptomeningeal enhancement within the cervical thoracic or lumbar sacral spinal canal.IMPRESSION:Mild increase in extent of vertebral body enhancement and adjacent paraspinal soft tissue enhancement at L1. There remains no epidural tumor or conus medullaris compre ssion. There is no loss of vertebral body height at L1.Stable punctate enhancing focus within the right transverse process of T10, which may represent a tiny metastatic lesion.Otherwise, no well-defined new vertebral body metastatic lesions involving the cervical, thoracic or lumbar spine.Occasional tr anscription errors may have occurred due to the inherent limitations of the voice recognition software and incorrect words/phrases may have been missed during proofreading. Please interpret using context where substitutions have occurred.MD PickettAZ Bone Scan Whole [id number] 16:16:49Multifocal osseous metastases Interface, Radiology Results In - 12/31/2019 11:19 AM CDTFULL RESULT:Examination: Whole-Body Bone Scan, 12/31/2019 10:57 AMClinical History: A 64-year-old female with bladder cancer [C67.9 (ICD-10-CM)]; Secondary malignant neoplasm of bone [C79.51 (ICD-10-CM)]Indication: Evaluate for osseous metastasisTechnique: Following the intravenous administration of 22 mCi of tech netium-99m MDP, anterior and posterior delayed whole body planar images were acquired. In addition, spot lateral views of the pelvis were performed.Findings: There are multiple areas of abnormal increased radiotracer activity involving the skull, left clavicle, right mid humeral diaphysis, left fifth rib, L1, right hemipelvis, and right mid femoral diaphysis.Both kidneys are visualized.IMPRESSION:Multifocal osseous metastasesSilver Lake Medical Center, Ingleside Campusool Culture 2019-12-23 00:38:58Final ReportNo Salmonella or Shigella isolated.No Aeromonas/Plesiomonas/Edwardsiella isolatedNo Vibrio species isolatedNo Campylobacter isolated.No Yersinia enterocolitica isolated [facility]ENTERPath Review - StoolThe results have been reviewed and electronically signed by Pathologist:ALEJO PURCELL MD #[id number] [facility] MD PickettCalprotectin Stool ( must have separate container)2019-12-22 01:35:14 Test Item Value Reference Range Interpretation Comments Calprotectin Stl-Gracia 156 <=50.0 (Normal) H Int erpretation: (test code = 20630-6) mcg/gm Abnorm al (>120.0 mcg/g) Test Performed by:[facility] er[address], [facility] [address]Bay Director: Jarek Morillo M.D. Ph. D.; CLIA# [id number] 2 Lab Interpretation Abnormal (test code = 01423-0) MD PickettCMV Qual, [id number] 22:34:40 Test Item Value Reference Range Interpretation Comments CMV Not Detected Not Detected This test was developed and Fecal-Virac its performance or (test characteristics determined by code = Gl[facility] .fr [place]fin s. It has not 5215) been cleared or approvedby the U.S. Food and D rug Administration. Results should be used inconju nction with clinical findin gs, and should not form the so lebasis for a diagnosis or tr eatment decision. Testing Performed At:[facility] [employer] [place] [id number] [place] [phone] MD PickettT-spot [id number] 15:55:44 Test Item Value Reference Range Interpretation Comments Tspot TB NIL Cont 0 (test code = 9396) Tspot TB Panel A 0 (test code = 9397) Tspot TB Panel B 0 (test code = 9398) Tspot TB Pos Cont SAT NOTE: TMTC INDICATES TOO (test code = 9399) MANY SPOT S TO COUNT. SAT INDICATES THE W ELL WAS SATURATED. Tspot TB (test code Negative Negative Performi ng Lab:[facility] = 7663) [address] [address] Tspot TB Interp See Note Results Inte rpretation: (test code = 9400) Results a re Negative when (Panel A - NIL) and (Panel B - NIL) 4 spo ts, including value s less than zero.Results ar e Positive when (Panel A - NIL) and (Panel B - NIL) 8 spots.Results a re Borderline when either (Panel A - NIL) and (Panel B - NIL) = 5, 6 , or 7. The test is invalid when either of the f ollowing conditions is m et:1.) The NIL Control has > 10 spots.2.) The M itogen (Positive Contr ol) has <20 spots and both (Panel A - NIL) and (Panel B - NIL) 4 spots. M. tub erculosis infection canno t be excluded when:1 . Any illness is cons istent with TB disease.2. L ikelihood of progression to disease (e.g. Due to Immunosuppressi on) is increased. Limi tations Diagnosing or e xcluding Tuberculosis di sease, and assessing the p robability of LTBI, requir es a combination of Epidemiological , historical, med ical and diagnostic find ings that should be taken in to account when in terpreting T-Spot.TB refer to the most recent CDC guidance(http:/ www.cdc.gov /nchstp/tb) for detailed recommendations about diagnosing TB i nfections (including dise ase) and selecting perso ns for testing. 1.) A false negative result can be caused by incor rect blood sample collecti on or improper handli ng of the specimen, affec ting lymphocyte func tion.2.) The performance of T-Spot.TB has n ot been adequately eval uated with specimens from individuals younger than ag e 17 years, in wom en, and in patients with Hemophilia.3.) A false positive result was obtained for T- Spot.TB when tested in subjects with M. xenopi, M. kansasii, and M . gordonae. While ESAT-8 an d CFP-10 antigens are ab sent from BCG strains of M. bovis and from most environmental Mycobacteria, i t is possible that a positive T-Spot.TB resul t may be due to infectio n with M. kansasii, M. sz adonaygai, M. gordoae, or M. marinum. Alternative kaylah ts would be required if the se infections are suspected.4.) A negative test result rowan s not exclude the pos sibility of exposure to, or infection with M. tubercu losis. Patients with r ecent exposure to TB infected individuals exh ibiting a negative T-Spot .TB result should be consi dered for retesting withi n 6 weeks or if other rel evant clinical sysmpt oms indicate possib le infection.5.) A positive test result rowan s not rule in active TB di sease; other tests ayesha uld be performed to co nfirm the diagnosis of ac tive TB disease such as sputum smear and cultu re, PCR and chest radiograp hy.6.) T-Spot.TB test has not been evaluated in subjects who have receiv ed > 1 month Anti-TB t herapy.7.) Refrigerated an d frozen samples are not recommended for use with T-Spot.TB test. MD PickettCytokine [id number] 14:35:38 Test Item Value Reference Range Interpretation Comments Tumor Nec 9.6 pg/mL <=7.2 H INTERPRETIVE Ecx-Cyi-Rmau (test INFORMATI ON: code = 7669) CytokinesResult s are used to underst and the pathophysiology ofimmune, infec tious, or inflammatory disorders, or m ay beused for rese arch purposes.Test developed and characteristics determined by [facility]. See Compliance Stat ement B: [facility] [facility]SP erforme d by [employer],[address] [place] [address] iiu .[employer], Jonathan Davila MD, Lab. Direct or Interleuk 2-Gracia <2.1 <=2.1 pg/mL (test code = 6043) Interleukin 2 1819.9 pg/mL 175.3-858.2 H Rcpt-Gracia (test code = 6048) Interleukin 12-Gracia <1.9 <=1.9 pg/mL (test code = 6046) Interferon <4.2 <=4.2 pg/mL gamma-Gracia (test code = 6042) Interleukin 4-Gracia <2.2 <=2.2 pg/mL (test code = 6050) Interleukin 5-Gracia <2.1 <=2.1 pg/mL (test code = 6051) Interleukin 10-Gracia 8.9 pg/mL <=2.8 H (test code = 6045) Interleukin 13-Gracia <1.7 <=2.3 pg/mL (test code = 6047) Interleukin 17-Gracia <1.4 <=1.4 pg/mL (test code = 9390) Interleukin 1 <6.5 <=6.7 pg/mL beta-Gracia (test code = 6044) Interleukin 6-Gracia 7 pg/mL <=2.0 H (test code = 6052) Interleukin 8-Gracia <3.0 <=3.0 pg/mL Test Per formed (test code = 6053) by:[employer] [place] [address] Lab Interpretation Abnormal (test code = 44678-4) MD PickettIFE Path [id number] 00:05:45IFE Path IntThe serum protein immunofixation electrophoretic patterns obtained with the use of antisera against IgG, IgA, IgM, bound kappa and bound lambda light chains are suggestive of an oligoclonalgammopathy. The presence of an M-protein that is associated with an oligoclonal gammopathy, however,cannot be ruled out by this study. Follow-up serum protein electrophoretic studies are suggested. Comment: MD Dez GUERIN [id number] by: MD Dez GUERIN84Dictated Date/Time: 12.20.2019 19:05 PM CDT Transcribed Date/Time: 12.20.2019 19:05 PM CDTElectronically Signed By: MD Dez GUERIN [id number] on 12.20.2019 19:05 PM BANNER [id number] 00:05:44 Test Item Value Reference Range Interpretation Comments PRIMITIVO (test code = 5948) See Comment MD PickettProtein Electrophoresis Path [id number] 00:05:43 Test Item Value Reference Range Interpretation Comments SPE Path The serum protein Interp (test electrophoretic code = 7285) pattern does not show __KOBE CORTES MD - of an M-protein peak. 93125Q ictated by: Shana GUERIN D - [id number] Date/Time: 19:05 PM CDT Transcribed Ata e/Time: 12.20.2019 19:0 5 PM CDTElectronical ly Signed By: JOSELIN CORTES MD - 1018 4 on 12.20.2019 19:0 5 PM MD Ocasio Protein [id number] 00:05:42 Test Item Value Reference Range Interpretation Comments TOT PROTEIN (test code = 8545) 7.3 6.4- 8.3 gm/dL Albumin (test code = 1751-7) 4.1 3.6- 5.4 gm/dL Alpha 1 Globulin (test code = 0.5 0.2- 0.4 gm/dL H 2865-4) Alpha 2 Globulin (test code = 1.0 0.5- 1.0 gm/dL 2868-8) Beta Globulin (test code = 2871-2) 0.9 0.5- 1.1 gm/dL Gamma Globulin (test code = 2874-6) 0.8 0.7- 1.6 gm/dL Lab Interpretation (test code = Abnormal 41629-4) MD PickettLactoferrin Detection Path [id number] 19:57:29Lactoferrin PRReviewed and Electronically signed by Pathologist:ALEJO PURCELL MD #[id number] Comment: The LEUKO EZ KEN test is an immunochromatographic test for the qualitative detection of elevatedlevels of fecal lactoferrin, a marker for fecal leukocytesand an indicator of intestinal inflammation. A positive test result indicates anincreased level of fecal lactoferrin and warrants additional kaylah ting. MD Dez River [id number] by: MD Dez River [id number] Date/Time: 12.20.2019 14:57 PM CDT Transcribed Date/Time: 12.20.2019 14:57 PM CDTElectronically Signed By: MD Dez River [id number] on 12.20.2019 14:57 PM [facility]MD AndersonLactoferrin [id number] 15:03:45 Test Item Value Reference Range Interpretation Comments Lactoferrin Interp (test code = Negative Negative 6136) MD PickettCytokine Panel 21:26:58 Test Item Value Reference Range Interpretation Comments INF gamma (test code = 245555) <LLOQ 0-5 IL-6 (test code = 766507) 6 pg/mL 0-5 H TNF alpha (test code = 755202) 9 pg/mL 0-22 Lab Interpretation (test code = Abnormal 28469-5) MD Muller HCV Ab Path [id number] 21:02:14 Test Item Value Reference Range Interpretation Comments HCV Ab Path There is NO Interp (test serologic code = 8923) evidence of ____KOLBY MYERS Hepatitis C RAMSEY virus antibody. Katelynn LUNDBERG celina by: KOLBY LUNDBERG,Dictated Date/Time: 16:02 PM CDT Transcribed Ata e/Time: 12.19.2019 16:0 2 PM CDTElectronical ly Signed By: KOLBY VALENCIA, on 12.19.2019 1 6:02 PM MD Muller HBcAb Path [id number] 21:02:08 Test Item Value Reference Range Interpretation Comments HBcAb Path There is NO Interp (test serologic code = 8924) evidence of ____KOLBY MYERS Hepatitis B RAMSEY virus core SARATHCHO,Dictated by: antibody. KOLBY ALEXANDREA NIKIADESIREERod LUNDBERG,Dictated Date/Time: 16:02 PM CDT Transcribed Ata e/Time: 12.19.2019 16:0 2 PM CDTElectronical ly Signed By: KOLBY SNEHA MYERS RAMSEY VALENCIA, on 12.19.2019 1 6:02 PM MD [id number] 15:26:13 Test Item Value Reference Range Interpretation Comments ACTH (test code = 4643) 4 pg/mL 7-63 L Resu lts greater than 2000 pg/mL may not be reliable due to matrix effect w ith extended diluti on as it exceeds the coin rolling machine operator s recommended l imit. Caution should be exercised when interpreting rodriguez ch values and done in conjunction wit h clinical context.Note: N ew Methodology and Reference Range change effectiv e 11/03/2017 at 14 00 Lab Interpretation (test Abnormal code = 51351-2) MD Dalal C Virus [id number] 06:00:38 Test Item Value Reference Range Interpretation Comments HCVAb. (test code Non Reactive Non Reactive Performed at: = 5762) [facility] [address] [address] MD Dalal B Total Ig Core Ab (SCREENING) (anti-HBc total Ig; HBcAb total Ig)2019-12-19 06:00:37 Test Item Value Reference Range Interpretation Comments HBcAb. (test code Non Reactive Non Reactive Performed at: = 5742) [facility] [address] [address] MD PickettSewero [id number] 21:47:21 Test Item Value Reference Range Interpretation Comments Sed Rate (test code = 4537-7) 54 0- 20 mm/hr H Lab Interpretation (test code = Abnormal 98235-3) MD PickettOmnrwhbeTEW3701-16-11 21:07:06 Test Item Value Reference Range Interpretation Comments CRP (test code = 35.22 mg/L Reference r anges for HS 5235) CRP assay are a s follows: Reference range s when used to assess cardi ac risk: <1.00 mg/L Low cardiovascular risk 1.00-3.00 mg/L Average cardiovascular risk >3.00 mg/L High cardi ovascular risk.Reference ranges when used to assess inflammatory re sponses: Less than or eq ual to 10.00 mg/L. MD [id number] 20:53:17 Test Item Value Reference Range Interpretation Comments T3 Total (test code = 7491) 89 ng/dL 80-200 MD PickettCortisol, [id number] 20:33:56 Test Item Value Reference Range Interpretation Comments Cortisol (test code = 14.53 4.80- 19.50 mcg/dL Serum Cortisol 5357) Reference Range s: Morning (6-10 am) (4.82 - 19.5)Af ternoon (4-8pm) (2.47 - 11.9) Testing Perform ed at [facility] Lab Ambulat [facility], [address], [address], [place], [place] [address] MD PickettUrinalysis with [id number] 17:09:29 Test Item Value Reference Range Interpretation Comments UA WBC (test code = 7 0- 2 /HPF H 7904) UA RBC (test code = 11 0- 2 /HPF H 7891) UA Mucous (test code = TRACE TRACE /HPF 7887) UA Bacteria (test code NOT SEEN NOT SEEN /HPF = 7870) UA Squam Epi (test OCC OCC /HPF code = 7896) UA Trip Phos (test 2+ OCC /HPF A code = 7900) YEFRI (test code = YEFRI) Some reporting parameters within the Urinalysis test have changed due to the implementation of new instrumentation in the [facility], allowing greater sensitivity of measurement. Urinalysis results reported by the [facility] using existing instrumentation, as well as Urinalysis testing performed manually or by backup methodology at the [facility] will remain relatively unchanged. New reporting parameters and units will now be reported for all campuses. Lab Interpretation Abnormal (test code = 52284-3) MD PickettUrinalysis w/Microscopic if [id number] 16:59:12 Test Item Value Reference Range Interpretation Comments UA Color (test code = 7877) Yellow Yellow UA Appear (test code = 7868) Cloudy Clear A UA Glucose (test code = 7881) NEG NEG mg/dL UA Bili (test code = 7871) NEG NEG UA Ketones (test code = 7884) NEG NEG mg/dL UA Spec Grav (test code = 7894) 1.014 1.002-1.035 UA Blood (test code = 7872) Small NEG A UA pH (test code = 7909) 8.0 4.5-8.0 UA Protein (test code = 7890) 100 mg/dL NEG A UA Urobilinogen (test code = NEG NEG 7903) UA Nitrite (test code = 7888) NEG NEG UA Leuk Est (test code = 7886) Small NEG A YEFRI (test code = YEFRI) [facility] Lab Interpretation (test code = Abnormal 04132-2) MD Rodriguez NGS Blood - NGS Blood Control is required for all Molecular orders of two or more genes to receive testing on the current 146 gene STGA 2018 DNA Panel. If NGS Blood Control is not ordered, testing will be routed the 50-gene, CM50, panel.2019-10-15 17:09:25 Test Item Value Reference Range Interpretation Comments Molecular Diagnostics (Received) (test Yes code = 8400) MD Quinn Chest Abdomen Pelvis with and without Contrast [id number] 14:23:24 Right adrenal nodule noted, concerning for metastasis.Increase in size of metastatic lytic defect in the L1 vertebral bodyNew focus of sclerosis in the right iliac wing also concerning for bone metastasis, with patchy sclerosis of the left clavicle also concerning. Consider bone scan for further evalu ation.Stable postsurgical changes noted in the chest and pelvis. Interface, Radiology Results In - 10/12/2019 9:25 AM CDTFULL RESULT:Examination: CT CHEST ABDOMEN PELVIS W WO CONTRAST UROGRAM, 10/11/2019 6:18 PMClinical History: Malignant neoplasm of overlapping sites of bladderCoughOther specified hyp othyroidismBladder cancerIndication: restagingComparison: 08/23/2019Technique: CT of the abdomen was performed without intravenous contrast followed by CT of the chest, abdomen, and pelvis with intravenous contrast.Findings: Chest:Postsurgical changes again noted related to the left lower lobectomy. Smal l left pleural effusion mild compressive atelectasis left lung base. No suspicious new pulmonary nodules identifiedNo significant new mediastinal hilar or axillary lymphadenopathyAbdomen pelvis:Right adrenal gland nodule measuring 1.3 x 2.6 cm concerning for metastasis stable appearance of the left adrenal glandSpleen is unremarkableThe pancreas remain stable in comparison to prior studyStable appearance of the liver multiple scattered hypodensities seen in the liver parenchyma likely representing cysts no suspicious new focal liver lesions.No significant bile duct dilation gallbladder contains sludge is not significantly distendedNo significant mesenteric or retroperitoneal lymphadenopathyRight lower quadrant ileal conduit noted.Mild hydronephrosis of the right kidney remain stable from prior studyNo significant hydronephrosis of the left kidneyNo suspicious new filling defects identified within the urinary tract.No evidence of postsurgical changes related to cystectomy and hysterectomyDiverticulosis of the sigmoid colon no acute diverticulitis no evidence of bowel obstructionRight lower quadrant parastomal hernia noted related to the ileal conduit with herniation of omental fat into the subc utaneous tissuePostsurgical changes in the small bowel related to ileal conduit formation.Obstructive lytic changes in the L1 vertebral body have progressed in comparison to prior study lytic defect now measures 2.3 cm before measuring 1.3 cm. With sclerosis of the surrounding vertebral bodyIncreased patchy sclerosis noted in the right iliac wing series 8 image 241 also concerning for possible bone metastasis.Patchy sclerosis left clavicle also concerning.Consider bone scan to identify other sites of bone metastatic disease if clinically indicatedIMPRESSION:Right adrenal nodule noted, concerning for metastasis.Increase in size of metastatic lytic defect in the L1 vertebral bodyNew focus of sclerosis in the right iliac wing also concerning for bone metastasis, with patchy sclerosis of the left clavicle also concerning. 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 Staging.Comparison: MRI lumbar spine 09/04/2019.Technique: Multiplanar MRI of the cervical and thoracic spine without and with intravenous contrast using multisequence parameters was performed. Findings: Cervical spine: There is straightening of the normal cervical lordosis with degenerative disc disease from C3-4 through C6-7. Mild disc osteophyte complexes partially efface the ventral subarachnoid space with no significant canal narrowing. A small focus of low T1 signal intensity and enhancement beneath the superior endplate of C6 is believed to be a Schmorl's node. No suspicious osseous lesions or compression fractures. The cervical cord is normal in caliber and signal intensity.Thoracic spine: Thoracic kyphosis is mildly exaggerated. A metastasis in the L1 vertebral body is present. No marrow replacement or suspicious osseous lesions in the thoracic spine. The spinal canal and foramina are patent. The thoracic cord is normal in caliber and signal intensity. No abnormal leptomeningeal enhancement. Please see recent CT chest in regards to findings in the left chest.IMPRESSION:No osseous metastases in the cervical or thoracic spine.MD Lawton Thoracic Spine with and without [id number] 12:42:11No osseous metastases in the cervical or thoracic spine.Interface, Radiology Results In - 09/13/2019 6:44 AM CSTFULL RESULT: Examination: MRI CERVICAL SPINE W WO CONTRAST, MRI THORACIC SPINE W WO CONT RAST, 09/12/2019 5:00 PMClinical History: Metastatic urothelial carcinoma with lumbar spine metastases.Indication: Lumbar spine metastases. Staging.Comparison: MRI lumbar spine 09/04/2019.Technique: Multiplanar MRI of the cervical and thoracic spine without and with intravenous contrast using multisequence parameters was performed. Findings: Cervical spine: There is straightening of the normal cervical lordosis with degenerative disc disease from C3-4 through C6-7. Mild disc osteophyte complexes partially efface the ventral subarachnoid space with no significant canal narrowing. A small focus of low T1 signal intensity and enhancement beneath the superior endplate of C6 is believed to be a Schmorl's node. No suspicious osseous lesions or compression fractures. The cervical cord is normal in caliber and signal intensity.Thoracic spine: Thoracic kyphosis is mildly exaggerated. A metastasis in the L1 vertebral body is present. No marrow replacement or suspicious osseous lesions in the thoracic spine. The spinal canal and foramina are patent. The thoracic cord is normal in caliber and signal intensity. No abnormal leptomeningeal enhancement. Please see recent CT chest in regards to findings in the left chest.IMPRESSION:No osseous metastases in the cervical or thoracic spine.MD DooleyQugdfghiT-[id number] 20:09:07 Test Item Value Reference Range Interpretation Comments D-Dimer (test code = 1.95 0.10- 0.50 H [place] [address]-8) mcg/ml FEU exclusion of ve nous thromboembolism is <0.50 mcg/mL FEUs (fi brinogen equivalent unit s). Lab Interpretation Abnormal (test code = 40215-6) MD PickettDamaris Lumbar Spine with and without [id number] 19:02:15Baseline MRI of the lumbar spine demonstrating a lesion consistent with metastatic disease in the C3vsxawmxjw body. No epidural tumor extension or additional lesions are visualized. Routine follow-up MRI can be obtained for further evaluation. Interface, Radiology Results In - 09/04/2019 1:04 PM CSTFULL RESULT:Examination: MRI LUMBAR SPINE W WO CONTRAST, 09/04/2019 12:25 PM.Clinical History: Secondary malignant neoplasm of left lungIndication: Bone mass, Cancer metastatic to bone suspected, Restaging - Treatment completion, No contraindications to CT, MR, or contrast agentsComparison: No prior MRI of the lumbar spine is normal for comparison.Technique: Multiplanar multisequence magnetic resonance imaging of the lumbar spine was performed without and with intravenous administration of contrast.Findings: A lesion demonstrating low T1, high T2 signal with enhancement is visualized in the L1 vertebral body, consistent with metastatic disease. It is well seen on series 7, 8 and 17 image 9. The lesion involves the majority of the vertebral body on series 15 and 18 image 11. No epidural or soft tissue extension is detected. Mild compression deformity of the inferior endplate with no overall loss of height. No additional lesions are visualized.The conus medullaris is visualized at T12/L1 and is unr emarkable in appearance.Disc space narrowing at L5/S1. No spinal canal or foraminal stenosis is detected.IMPRESSION:Baseline MRI of the lumbar spine demonstrating a lesion consistent with metastatic disease in the L1 vertebral body. No epidural tumor extension or additional lesions are visualized. Routine follow-up MRI can be obtained for further evaluation.MD PickettComplete Blood Count w/o [id number] 11:25:30 Test Item Value Reference Range Interpretation Comments WBC (test code = 8034) 5.4 K/uL 4-11 RBC (test code = 6932) 2.43 4.00- 5.50 M/uL L Hgb (test code = 5898) 8.0 12.0- 16.0 gm/dL L Hct (test code = 5860) 23.8 % 37-47 L MCV (test code = 6222) 98 fL 82-98 MCH (test code = 6220) 32.9 pg 27-31 H MCHC (test code = 6221) 33.6 31.0- 36.0 gm/dL RDW-SD (test code = 58.9 fL 35.1-46.3 H 6972) RDW-CV (test code = 16.6 % 12-15.5 H 6971) Platelet count (test 121 K/uL 140-440 L code = 6832) MPV (test code = 6282) 9.8 fL 4-10.4 INRBC (test code = 0.0 % <=0.0 The INRBC (instrument 5974) NRBC) value ref lects the enumeration of nucleated red b lood cells contained in a 200uL sampleof whole blood analyzed by the instrument. Thi s value maydiffer from the NRBC value reported in a m anual differential,wh ich is based on a 100 cell differential. Lab Interpretation Abnormal (test code = 64276-0) MD PickettCalcium Ionized, [id number] 09:11:50 Test Item Value Reference Range Interpretation Comments V Ion Ca (test code = 30453-3) 1.17 mmol/L 1.13-1.32 MD PickettPrepare RBC:2019-08-01 05:03:54 Test Item Value Reference Range Interpretation Comments Unit Number (test [id number] code = 7002) Product Code (test O6631V97 code = 700) Unit Expiration (test code = ) Unit Blood Type 5100 (test code = 700) Product Code Text RBCIRLR CPD AS1 (test code = 500mL ) Crossmatch [id number] Expiration Date (test code = ) Unit Irradiated IRRADIATED (test code = ) Dispense Status RETURNED (test code = 7000) Unit Blood Type O Positive ____ (test code = 700) _ ____ MD PickettXR Chest 1 View Post [id number] 19:37:12No evident pneumothorax. Interface, Radiology Results In - 07/31/2019 1:39 PM CSTFULL RESULT:Examination: XR CHEST 1 VW POST IMPLANT, 07/31/2019 12:25 PMClinical History: Bladder cancerIndication: Confirm chest tube placementComparison: May 16, 2019Technique: Single portable anteroposterior radiograph of the chest.Findings:There are two left chest tubes with distal tips over the left mid hemithorax. No evident pneumothorax.Status post left lower lobectomy. Right lower lung subsegmental atelectasis.Prominent cardiomediastinal silhouette.Left chest wall subcutaneous emphysema.IMPRESSION:No evident pneumothorax.MD Pickett TMP Interpretation [id number] 16:44:02 Test Item Value Reference Range Interpretation Comments TMP XM Interp RBC units (test code = crossmatched for 7566) transfusion appear FLE RORY MIN compatible. MARY,Dictated b y: Yuri LYMAN ed Date/Time: 07.18 10:44 AM TITLE CHECKER Transcribed Ata e/Time: 07.31.2019 10:4 4 AM CSTElectronical ly Signed By: ANIBAL HERNANDEZ on 07.31 10:44 AM MD PickettOR ABG+2019-07-31 16:32:37 Test Item Value Reference Range Interpretation Comments OR Sodium, arterial (test code = 138 135- 147 mEq/L 2947-0) OR Potassium, arterial (test code 4.3 3.5- 5.0 mEq/L = 6298-4) OR Chloride, arterial (test code 103 98- 108 mEq/L = 2069-3) OR Glucose, arterial (test code = 153 mg/dL 67-93 H 2339-0) OR Hematocrit, arterial (test 30 % 35-53 L code = 24268-1) OR Lactate, arterial (test code = 0.7 mmol/L 0.5-2 40459-5) OR Ion calcium, arterial (test 1.01 mmol/L 1.13-1.32 L code = 1993-) OR pH Art (test code = 2744-1) 7.36 7.35-7.45 OR pCO2 Art (test code = 2018-) 42 35- 45 mmHg OR pO2 Art (test code = 2703-7) 202 83- 108 mmHg H OR HCO3 Art (test code = 1959-) 24 mmol/L 22-26 OR Anion Gap, arterial (test code 11 mmol/L -14 = 9327) OR Base Excess Art (test code = -1 mmol/L -2-3 1924-7) OR O2 Sat Art (test code = 6532) 100 % 92-98 H FLOW/ FiO2 (test code = 5568) see note Lab Interpretation (test code = Abnormal 19486-5) MD PickettPrepare fresh frozen plasma:2019-07-31 16:17:10 Test Item Value Reference Range Interpretation Comments Unit Number (test [id number] code = 7002) Product Code (test Q1189R01 code = 7003) Unit Expiration (test [id number] code = 205244) Unit Blood Type (test 5100 code = 7004) Product Code Text PLASMA IR CPD (test code = 532763) Unit Irradiated (test IRRADIATED code = 561543) Dispense Status (test ISSUED code = 7001) Unit Blood Type (test O Positive code = 7005) ____ MD PickettCT Chest with [id number] 13:32:121. Similar size/appearance left lower lobe/left infrahilar masslike opacity with details as above. Interface, Radiology Results In - 06/27/2019 7:34 AM CSTFULL RESULT:Examination: CT CHEST W CONTRAST, 06/27/2019 7:21 AMClinical History: Other nonspecific abnormal finding of lung fieldIndication: pulmonary noduleComparison: 05/16/2019, 05/01/2019, 04/05/2019, 06/26/2018 CT scansTechnique: CT of the chest was performed using intravenous contrast.FINDINGS:1. Visualized thyroid gland unremarkable.2.No pericardial effusion. Minimal coronary artery vascular calcifications. No central pulmonary embolus.3. No suspicious axillary, internal mammary chain, mediastinal, or right hilar adenopathy. Soft tissue thickening around left lower lobe bronchi, stable and nonspecific. Occlusion distal left lower lobe bronchi again noted.4. Masslike opacity left lower lobe/left infrahilar region again identified measuring approximately 39 x 36 mm series 2 image 81, similar. Postobstructive changes left lower lobe, attenuation left lower lobe pulmonary arteries, and occlusion left lower lobe pulmonary vein stable.5. Visualized adrenal glands unremarkable. Hepatic cysts again noted.6. No acute osseous finding. IMPRESSION:1. Similar size/appearance left lower lobe/left infrahilar masslike opacity with details as above.MD Henry 12 [id number] 16:50:10 Interface, External Ris In - 06/17/2019 4:50 PM CSTVentricular Rate 52 BPMAtrial Rate 52 BPMP-R Interval 188 msQRS Duration 96 msQ-T Interval 458 msQTC Calculation(Bazett) 425 msP Berwick 39 degreesR [place] -21 degreesT [place] 19 degreesSinus bradycardia with Premature atrial complexesOtherwise normal ECGNo previous ECGs availableConfirmed by MD MARLYS, BOB ([id number]) on 06/17/2019 4:50:07 [facility]RPR[facility] 04:27:00 Test Item Value Reference Range Interpretation Comments RPR (test code = 77014-7) Nonreactive Nonreactive Lab Interpretation (test code = Normal 29731-9) [facility] 04:27:00 Test Item Value Reference Range Interpretation Comments RPR SCREEN (BEAKER) (test code = Nonreactive Nonreactive 420) MR, MRA, BRAIN, WITHOUT [id number] 15:00:00Reason for exam:->Ischemic Stroke EvaluationFINAL REPORT MR, BRAIN, WITHOUT CONTRAST, MR, MRA, BRAIN, WITHOUT CONTRAST, MR, MRA, NECK, WITHOUT IV CONTRAST INDICATION: Stroke, follow upIschemic Stroke Evaluation TECHNIQUE: Multiplanar, multisequence MR imaging of the brain without intravenous contrast.MRA of the head utilizing 3-D pqps-rw-fjkbpc technique, with 3-D reconstructions.MRA of the neck utilizing 2-D and 3-D jfxk-jm-ogckex technique, with 3-D reconstructions. COMPARISON: None FINDINGS: [...] are intact. Calvarium \\T\\ scalp: Unremarkable. MRA Head:There is no evidence of intracranial aneurysm, focal stenosis, or major branch vessel occlusion. MRA Neck:The carotid arteries in the neck are patent including their bifurcations. There is antegrade flow in the vertebral arteries in the neck. IMPRESSION:No acute infarct or hemorrhage.No arterial occlusion or high-grade stenosis. Signed: Lauren Hawthorne MDReport Verified Date/Time: 06/16/2019 15:00:22 MR, MRA, NECK, WITHOUT IV [id number] 15:00:00Reason for exam:->Ischemic Stroke EvaluationFINAL REPORT MR, BRAIN, WITHOUT CONTRAST, MR, MRA, BRAIN, WITHOUT CONTRAST, MR, MRA, NECK, WITHOUT IV CONTRAST INDICATION: Stroke, follow upIschemic Stroke Evaluation TECHNIQUE: Multiplanar, multisequence MR imaging of the brain without intravenous contrast.MRA of the head utilizing 3-D bhqj-pm-dqbatm technique, with 3-D reconstructions.MRA of the neck utilizing 2-D and 3-D zrdc-qg-mqftcl technique, with 3-D reconstructions. COMPARISON: None FINDINGS: [...] are intact. Calvarium \\T\\ scalp: Unremarkable. MRA Head:There is no evidence of intracranial aneurysm, focal stenosis, or major branch vessel occlusion. MRA Neck:The carotid arteries in the neck are patent including their bifurcations. There is ant egrade flow in the vertebral arteries in the neck. IMPRESSION:No acute infarct or hemorrhage.No arterial occlusion or high-grade stenosis. Signed: Lauren Hawthorne Verified Date/Time: 06/16/2019 15:00:22 MR, BRAIN, WITHOUT [id number] 15:00:00Reason for exam:->Ischemic Stroke EvaluationFINAL REPORT MR, BRAIN, WITHOUT CONTRAST, MR, MRA, BRAIN, WITHOUT CONTRAST, MR, MRA, NECK, WITHOUT IV CONTRAST INDICATION: Stroke, follow upIschemic Stroke Evaluation TECHNIQUE: Multiplanar, multisequence MR imaging of the brain without intravenous contrast.MRA of the head utilizing 3-D okol-ji-hrgvnq technique, with 3-D reconstructions.MRA of the neck utilizing 2-D and 3-D gdav-nd-btqzlv technique, with 3-D reconstructions. COMPARISON: None FINDINGS: [...] are intact. Calvarium \\T\\ scalp: Unremarkable. MRA Head:There is no evidence of intracranial aneurysm, focal stenosis, or major branch vessel occlusion. MRA Neck:The carotid arteries in the neck are patent including their bifurcations. There is antegrade flow in the vertebral arteries in the neck. IMPRESSION:No acute infarct or hemorrhage.No arterial occlusion or high-grade stenosis. Signed: Lauren Hawthorne Verified Date/Time: 06/16/2019 15:00:22 MRA head without IV [id number] 15:00:00Interface, External Ris In - 06/16/2019 3:02 PM CSTFINAL REPORT MR, BRAIN, WI THOUT CONTRAST, MR, MRA, BRAIN, WITHOUT CONTRAST, MR, MRA, NECK, WITHOUT IV CONTRAST INDICATION: Stroke, follow upIschemic Stroke Evaluation TECHNIQUE: Multiplanar, multisequence MR imaging of the brain without intravenous contrast.MRA of the head utilizing 3-D emtn-js-inwory technique, with 3-D recons tructions.MRA of the neck utilizing 2-D and 3-D ahjs-xw-teekbx technique, with 3-D reconstructions. COMPARISON: None FINDINGS: MRI Brain:Intracranial: A few foci of T2 prolongation within the periventricular and subcortical white matter are a nonspecific finding commonly attributed to chronic small vessel ischemic disease. No intracranial hemorrhage. No restricted diffusion to suggest acute infarct. No mass effect. No hydrocephalus. Sinuses: No evidence of sinusitis. Mastoids are clear. Orbits: Globes are intact. Calvarium \\T\\ scalp: Unremarkable. MRA Head:There is no evidence of intracranial aneurysm, focal stenosis, or major branch vessel occlusion. MRA Neck:The carotid arteries in the neck arepatent including their bifurcations. There is antegrade flow in the vertebral arteries in the neck. IMPRESSION:No acute infarct or hemorrhage.No arterial occlusion or high-grade stenosis. Signed: Lauren Hawthorne Verified Date/Time: 06/16/2019 15:00:22 [facility] CenterMRA neck without IV [id number] 15:00:00Interface, External Ris In - 06/16/2019 3:02 PM CSTFINAL REPORT MR, BRAIN, WITHOUT CONTRAST, MR, MRA, BRAIN, WITHOUT CONTRAST, MR, MRA, NECK, WITHOUT IV CONTRAST INDICATION: Stroke, follow upIschemic Stroke Evaluation TECHNIQUE: Multiplanar, multisequence MR imaging of the brain without intravenous contrast.MRA of the head utilizing 3-D gavt-jj-zmnqvm technique, with 3-D reconstructions.MRA of the neck utilizing 2-D and 3-D llpq-cn-jzpljv technique, with 3-D reconstructions. C OMPARISON: None FINDINGS: MRI Brain:Intracranial: A few foci of T2 prolongation within the periventricular and subcortical white matter are a nonspecific finding commonly attributed to chronic small vessel ischemic disease. No intracranial hemorrhage. No restricted diffusion to suggest acute infarct. No mass effect. No hydrocephalus. Sinuses: No evidence of sinusitis. Mastoids are clear. Orbits: Globes are intact. Calvarium \\T\\ scalp: Unremarkable. MRA Head:There is no evidence of intracranial aneurysm, focal stenosis, or major branch vessel occlusion. MRA Neck:The carotid arteries in the neck arepatent including their bifurcations. There is antegrade flow in the vertebral arteries in the neck. IMPRESSION:No acute infarct or hemorrhage.No arterial occlusion or high-grade stenosis. Signed: Lauren Hawthorne Verified Date/Time: 06/16/2019 15:00:22 [facility] CenterMR brain without IV [id number] 15:00:00Interface, External Ris In - 06/16/2019 3:02 PM CSTFINAL REPORT MR, BRAIN, WITHOUT CONTRAST, MR, MRA, BRAIN, WITHOUT CONTRAST, MR, MRA, NECK, WITHOUT IV CONTRAST INDICATION: Stroke, follow upIschemic Stroke Evaluation TECHNIQUE: Multiplanar, multisequence MR imaging of the brain without intravenous contrast.MRA of the head utilizing 3-D ythq-nz-pjtiqh technique, with 3-D reconstructions.MRA of the neck utilizing 2-D and 3-D ltzm-gd-clqyqd technique, with 3-D reconstructions. COMPARISON: None FINDINGS: MRI Brain:Intracranial: A few foci of T2 prolongation within the periventricular and subcortical white matter are a nonspecific finding commonly attributed to chronic small vessel ischemic disease. No intracranial hemorrhage. No restricted diffusion to suggest acute infarct. No mass effect. No hydrocephalus. Sinuses: No evidence of sinusitis. Mastoids are clear. Orbits: Globes are intact. Calvarium \\T\\ scalp: Unremarkable. MRA Head:There is no evidence of intracranial aneurysm, focal stenosis, or major branch vessel occlusion. MRA Neck:The carotid arteries in the neck arepatent including their bifurcations. There is antegrade flow in the vertebral arteries in the neck. IMPRESSION:No acute infarct or hemorrhage.No arterial occlusion or high-grade stenosis. Signed: Lauren Hawthorne Verified Date/Time: 06/16/2019 15:00:22 [facility] CenterVitamin B12 and [id number] 07:16:00 Test Item Value Reference Range Interpretation Comments Vitamin B12 (test code = 2132-9) 223 pg/mL 213-816 Folate (test code = 2284-8) >40.0 >=7.0 ng/mL YEFRI (test code = YEFRI) Fasting Lab Interpretation (test code = Normal 05456-9) [facility] HospitalVITAMIN B12 AND [id number] 07:16:00 Test Item Value Reference Range Interpretation Comments VITAMIN B12 (BEAKER) (test code = 223 pg/mL 213-816 774) FOLATE (BEAKER) (test code = 362) > ng/mL >=7.0 FastingHomocysteine - [id number] 05:55:00 Test Item Value Reference Range Interpretation Comments Homocysteine (test code = 13.5 umol/L 5.1-15.4 76403-6) YEFRI (test code = YEFRI) Fasting Lab Interpretation (test code = Normal 67767-5) [facility] HospitalHOMOCYSTEINE2019-11-30 05:55:00 Test Item Value Reference Range Interpretation Comments HOMOCYSTEINE (BEAKER) (test code 13.5 umol/L 5.1-15.4 = 642) FastingT4, [id number] 05:53:00 Test Item Value Reference Range Interpretation Comments Free T4 (test code = 3024-7) 0.87 ng/dL 0.7-1.48 YEFRI (test code = YEFRI) Fasting Lab Interpretation (test code = Normal 23159-6) [facility] HospitalT4, [id number] 05:53:00 Test Item Value Reference Range Interpretation Comments FREE T4 (BEAKER) (test code = 655) 0.87 ng/dL 0.70-1.48 FastingTSH/Free T4 If [id number] 03:09:00 Test Item Value Reference Range Interpretation Comments TSH (test code = 97381-9) 0.16 0.35- 4.94 uIU/mL L YEFRI (test code = YEFRI) Fasting Lab Interpretation (test code = Abnormal 06379-2) [facility] HospitalTSH/FREE T4 IF [id number] 03:09:00 Test Item Value Reference Range Interpretation Comments THYROID STIMULATING HORMONE 0.16 uIU/mL 0.35-4.94 L (BEAKER) (test code = 772) FastingHIV-1 Antigen with HIV-1/2 [id number] 02:55:00 Test Item Value Reference Range Interpretation Comments HIV-1 Antigen with HIV 1&2 Nonreactive Nonreactive Antibody (test code = 05537-3) YEFRI (test code = YEFRI) Fasting Lab Interpretation (test code = Normal 34491-9) [facility] HospitalHIV-1 ANTIGEN WITH HIV-1/2 [id number] 02:55:00 Test Item Value Reference Range Interpretation Comments HIV-1 ANTIGEN WITH HIV 1\\T\\2 Nonreactive Nonreactive ANTIBODY (2) (AKER) (test code = 2586) FastingPT/[id number] 02:52:00 Test Item Value Reference Range Interpretation Comments Protime (test code = 13.4 11.9- 14.2 5902-2) seconds INR (test code = 1.1 <=5.9 6301-6) PTT (test code = 30.3 22.5- 36.0 39777-0) seconds YEFRI (test code = YEFRI) Effective 12/13/2018: PT Reference Range ChangeNew: 11.9-14.2 Previous: 11.7-14.7 RECOMMENDED COUMADIN/WARFARIN INR THERAPY RANGESSTANDARD DOSE: 2.0-3.0 Includes: PROPHYLAXIS for venous thrombosis, systemic embolization; TREATMENT for venous thrombosis and/or pulmonary embolus.HIGH RISK: Target INR is 2.5-3.5 for patients wiht mechanical heart valves. Lab Interpretation Normal (test code = 84274-5) [facility] HospitalPT/[id number] 02:52:00 Test Item Value Reference Range Interpretation Comments PROTIME (BEAKER) (test code = 13.4 seconds 11.9-14.2 759) INR (BEAKER) (test code = 370) 1.1 <=5.9 PARTIAL THROMBOPLASTIN TIME 30.3 seconds 22.5-36.0 (BEAKER) (test code = 760) Effective 12/13/2018: PT Reference Range ChangeNew: 11.9-14.2 Previous: 11.7- 14.7RECOMMENDED COUMADIN/WARFARIN INR THERAPY RANGESSTANDARD DOSE: 2.0-3.0 Includes: PROPHYLAXIS for venous thrombosis, systemic embolization; TREATMENT for venous thrombosis and/or pulmonary embolus.HIGH RISK: Target INR is2.5-3.5 for patients wiht mechanical heart valves.C-Reactive [id number] 02:42:00 Test Item Value Reference Range Interpretation Comments CRP (test code = 676) 0.78 mg/dL 0-0.5 H YEFRI (test code = YEFRI) Fasting Lab Interpretation (test code = Abnormal 49774-6) [facility] HospitalC-REACTIVE [id number] 02:42:00 Test Item Value Reference Range Interpretation Comments C-REACTIVE PROTEIN (BEAKER) (test 0.78 mg/dL 0.00-0.50 H code = 676) FastingTroponin [id number] 02:40:00 Test Item Value Reference Range Interpretation Comments Troponin I (test code = <0.01 0-0.03 64261-7) YEFRI (test code = YEFRI) Troponin I (TnI) levels must be interpreted [...] failure, acidosis, acute neurological disease, and persistent tachyarrhythmia.Fasti ng Lab Interpretation (test Normal code = 34979-2) [facility] HospitalTROPONIN [id number] 02:40:00 Test Item Value Reference Range Interpretation Comments TROPONIN I (BEAKER) (test code = 397) < ng/mL 0.00-0.03 Troponin I (TnI) levels [...] failure, acidosis, acute neurological disease, and persistent tachyarrhythmia.FastingComprehensive metabolic panel 2019-06-16 02:34:00 Test Item Value Reference Range Interpretation Comments Protein, Total (test 5.5 6.0- 8.3 gm/dL L code = 2885-2) Albumin (test code = 3.3 g/dL 3.5-5 L 54286-6) Alkaline Phosphatase 60 U/L 40-150 (test code = 6768-6) Total Bilirubin (test 0.4 mg/dL 0.2-1.2 code = 1975-2) Sodium (test code = 136 meq/L 262-276 9281-2) Potassium (test code = 4.3 meq/L 3.5-5.1 2823-3) Chloride (test code = 104 meq/L 98-107 2075-0) CO2 (test code = 25 meq/L 22-29 2027-9) BUN (test code = 27 mg/dL 7-21 H 3094-0) Creatinine (test code = 1.30 mg/dL 0.57-1.25 H 2160-0) Glucose (test code = 105 mg/dL 70-105 2345-7) Calcium (test code = 8.7 mg/dL 8.4-10.2 78460-1) AST (test code = 11 U/L 5-34 1920-8) ALT (test code = 13 U/L 6-55 1742-6) EGFR (test code = 41 mL/min/1.73 [place] [address]-9) NOT ACCURATE CREATININE CLEARANCE IN PREDICTING GLOMERULAR FILTRATION RATE . ESTIMATED GFR I S NOT APPLICABLE FOR DIALYSIS PATIEN TS. YEFRI (test code = YEFRI) Fasting Lab Interpretation Abnormal (test code = 06549-7) [facility] HospitalFasting lipid [id number] 02:34:00 Test Item Value Reference Range Interpretation Comments Triglycerides (test 83 mg/dL code = 2571-8) Cholesterol (test code 262 mg/dL = 2093-3) HDL (test code = 86 mg/dL 2084-9) LDL Calculated (test 159 mg/dL code = 01812-6) YEFRI (test code = YEFRI) Triglyceride Reference Range: Low Risk <150 Borderline 150-199 High Risk 200-499 Very High Risk >=500 Cholesterol Reference Range: Low Risk <200 Borderline 200-239 High Risk >240 HDL Cholesterol Reference Range: Low Risk >=60 High Risk <40 LDL Cholesterol Reference Range: Optimal <100 Near Optimal 100-129 Borderline 130-159 High 160-189 Very High >=190 Fasting [facility] HospitalHepatic function [id number] 02:34:00 Test Item Value Reference Range Interpretation Comments Protein, Total (test code = 2885-2) 5.5 6.0- 8.3 gm/dL L Albumin (test code = 84884-1) 3.3 g/dL 3.5-5 L Total Bilirubin (test code = 0.4 mg/dL 0.2-1.2 1974-2) Bilirubin, Direct (test code = 0.2 mg/dL 0.1-0.5 1967-7) Alkaline Phosphatase (test code = 60 U/L 40-150 6768-6) AST (test code = 1920-8) 11 U/L 5-34 ALT (test code = 1742-6) 13 U/L 6-55 YEFRI (test code = YEFRI) Fasting Lab Interpretation (test code = Abnormal 17812-4) [facility] HospitalMagnesium2019-11-30 02:34:00 Test Item Value Reference Range Interpretation Comments Magnesium (test code = 88791-3) 1.8 mg/dL 1.6-2.6 YEFRI (test code = YEFRI) Fasting Lab Interpretation (test code = Normal 07809-6) [facility] HospitalMAGNESIUM2019-11-30 02:34:00 Test Item Value Reference Range Interpretation Comments MAGNESIUM (BEAKER) (test code = 1.8 mg/dL 1.6-2.6 627) FastingLIPID [id number] 02:34:00 Test Item Value Reference Range Interpretation Comments TRIGLYCERIDES (BEAKER) (test code = 83 mg/dL 540) CHOLESTEROL (BEAKER) (test code = 262 mg/dL 631) HDL CHOLESTEROL (BEAKER) (test code 86 mg/dL = 976) LDL CHOLESTEROL CALCULATED (BEAKER) 159 mg/dL (test code = 633) Triglyceride Reference Range: Low Risk <150 Borderline 150-199 High Risk 200-499 Very High Risk >=500Cholesterol Reference Range: Low Risk <200 Borderline 200-239 High Risk >240HDL Cholesterol Reference Range: Low Risk >=60 High Risk <40LDL Cholesterol Reference Range: Optimal <100 Near Optimal 100-129 Borderline 130-159 High 160-189 Very High >=190 FastingHEPATIC FUNCTION [id number] 02:34:00 Test Item Value Reference Range Interpretation Comments TOTAL PROTEIN (BEAKER) (test code = 5.5 gm/dL 6.0-8.3 L 770) ALBUMIN (BEAKER) (test code = 1145) 3.3 g/dL 3.5-5.0 L BILIRUBIN TOTAL (BEAKER) (test code 0.4 mg/dL 0.2-1.2 = 377) BILIRUBIN DIRECT (BEAKER) (test 0.2 mg/dL 0.1-0.5 code = 706) ALKALINE PHOSPHATASE (BEAKER) (test 60 U/L 40-150 code = 346) AST (SGOT) (BEAKER) (test code = 11 U/L 5-34 353) ALT (SGPT) (BEAKER) (test code = 13 U/L 6-55 347) FastingCOMPREHENSIVE METABOLIC [id number] 02:34:00 Test Item Value Reference Range Interpretation Comments TOTAL PROTEIN 5.5 gm/dL 6.0-8.3 L (BEAKER) (test code = 770) ALBUMIN (BEAKER) 3.3 g/dL 3.5-5.0 L (test code = 1145) ALKALINE PHOSPHATASE 60 U/L 40-150 (BEAKER) (test code = 346) BILIRUBIN TOTAL 0.4 mg/dL 0.2-1.2 (BEAKER) (test code = 377) SODIUM (BEAKER) (test 136 meq/L 136-145 code = 381) POTASSIUM (BEAKER) 4.3 meq/L 3.5-5.1 (test code = 379) CHLORIDE (BEAKER) 104 meq/L 98-107 (test code = 382) CO2 (BEAKER) (test 25 meq/L 22-29 code = 355) BLOOD UREA NITROGEN 27 mg/dL 7-21 H (BEAKER) (test code = 354) CREATININE (BEAKER) 1.30 mg/dL 0.57-1.25 H (test code = 358) GLUCOSE RANDOM 105 mg/dL 70-105 (BEAKER) (test code = 652) CALCIUM (BEAKER) 8.7 mg/dL 8.4-10.2 (test code = 697) AST (SGOT) (BEAKER) 11 U/L 5-34 (test code = 353) ALT (SGPT) (BEAKER) 13 U/L 6-55 (test code = 347) EGFR (BEAKER) (test 41 mL/min/1.73 ESTIMA CELINA GFR IS code = 1092) sq m NOT ACCURATE CREATININE CLEARANCE IN PREDICTING GLOMERULAR FILTRATION RATE . ESTIMATED GFR I S NOT APPLICABLE FOR DIALYSIS PATIEN TS. FastingCBC with platelet count + automated [id number] 02:17:00 Test Item Value Reference Range Interpretation Comments WBC (test code = 6690-2) 7.4 3.5- 10.5 K/L RBC (test code = 789-8) 3.53 3.93- 5.22 M/L L MCHC (test code = 786-4) 33.1 32.2- 35.5 GM/DL Hematocrit (test code = 4544-3) 34.7 % 34.1-44.9 MCV (test code = 787-2) 98.3 fL 79.4-94.8 H MCH (test code = 785-6) 32.6 pg 25.6-32.2 H RDW (test code = 788-0) 13.8 % 11.7-14.4 Platelets (test code = 777-3) 143 150- 450 K/CU MM L MPV (test code = 12379-0) 9.5 fL 9.4-12.3 nRBC (test code = 413) 0 0- 0 /100 WBC % Neutros (test code = 429) 81 % % Lymphs (test code = 430) 11 % % Monos (test code = 431) 5 % % Eos (test code = 432) 0 % % Baso (test code = 437) 0 % # Neutros (test code = 670) 5.99 1.56- 6.13 K/L # Lymphs (test code = 414) 0.84 1.18- 3.74 K/L L # Monos (test code = 415) 0.40 0.24- 0.36 K/L H # Eos (test code = 416) 0.00 0.04- 0.36 K/L L # Baso (test code = 417) 0.01 0.01- 0.08 K/L Immature Granulocytes-Relative 2 % 0-1 H (test code = 2801) Lab Interpretation (test code = Abnormal 25536-9) [facility] W/PLT COUNT & AUTO [id number] 02:17:00 Test Item Value Reference Range Interpretation Comments WHITE BLOOD CELL COUNT (BEAKER) 7.4 K/ L 3.5-10.5 (test code = 775) RED BLOOD CELL COUNT (BEAKER) 3.53 M/ L 3.93-5.22 L (test code = 761) HEMOGLOBIN (BEAKER) (test code = 11.5 GM/DL 11.2-15.7 410) HEMATOCRIT (BEAKER) (test code = 34.7 % 34.1-44.9 411) MEAN CORPUSCULAR VOLUME (BEAKER) 98.3 fL 79.4-94.8 H (test code = 753) MEAN CORPUSCULAR HEMOGLOBIN 32.6 pg 25.6-32.2 H (BEAKER) (test code = 751) MEAN CORPUSCULAR HEMOGLOBIN CONC 33.1 GM/DL 32.2-35.5 (BEAKER) (test code = 752) RED CELL DISTRIBUTION WIDTH 13.8 % 11.7-14.4 (BEAKER) (test code = 412) PLATELET COUNT (BEAKER) (test 143 K/CU MM 150-450 L code = 756) MEAN PLATELET VOLUME (BEAKER) 9.5 fL 9.4-12.3 (test code = 754) NUCLEATED RED BLOOD CELLS 0 /100 WBC 0-0 (BEAKER) (test code = 413) NEUTROPHILS RELATIVE PERCENT 81 % (BEAKER) (test code = 429) LYMPHOCYTES RELATIVE PERCENT 11 % (BEAKER) (test code = 430) MONOCYTES RELATIVE PERCENT 5 % (BEAKER) (test code = 431) EOSINOPHILS RELATIVE PERCENT 0 % (BEAKER) (test code = 432) BASOPHILS RELATIVE PERCENT 0 % (BEAKER) (test code = 437) NEUTROPHILS ABSOLUTE COUNT 5.99 K/ L 1.56-6.13 (BEAKER) (test code = 670) LYMPHOCYTES ABSOLUTE COUNT 0.84 K/ L 1.18-3.74 L (BEAKER) (test code = 414) MONOCYTES ABSOLUTE COUNT (BEAKER) 0.40 K/ L 0.24-0.36 H (test code = 415) EOSINOPHILS ABSOLUTE COUNT 0.00 K/ L 0.04-0.36 L (BEAKER) (test code = 416) BASOPHILS ABSOLUTE COUNT (BEAKER) 0.01 K/ L 0.01-0.08 (test code = 417) IMMATURE GRANULOCYTES-RELATIVE 2 % 0-1 H PERCENT (BEAKER) (test code = 2801) AFB Culture w/[id number] 22:12:19 Test Item Value Reference Range Interpretation Comments Final Report (test No acid fast bacteria code = 8488) isolated at 8 weeks. Path Review - AFB Partial antibiotic (test code = 8477) treatment can render AFB culture negative. AFB culture has sensitivity of 90%.The results have been reviewed and electronically signed by Pathologist:ALEJO PURCELL MD #[id number] Acid Fast Stain No Acid Fast Bacilli seen Truant (test code = in direct smear 11091-8) MD PickettFungus Culture w/[id number] 21:10:19 Test Item Value Reference Range Interpretation Comments Final Report (test No fungus isolated at 4 code = 8488) weeks. Path Review - Fungus Culture yield may be (test code = 8479) affected by sample quality, prior treatment, and transportation conditions. The results have been reviewed and electronically signed by Pathologist:Suad Polanco MD, PhD #[id number] Calcofluor Stain No Fungi seen in direct (test code = 658-5) smearTest performed by fluorescent stain methodology. YEFRI (test code = YEFRI) Cultures are held for 4 weeks before finalization. MD PickettIR CT GUIDED BIOPSY LUNG/[id number] 18:21:14Date of Procedure: 04/19/19 Attending Physician: Vj Aparicio Psychotherapist Social Worker: None Pre Procedure Diagnosis: Personal history of malignant neoplasm of bladder; Lung mass Post Procedure Diagnosis: Unchanged Indication: Enlarging mass / nodule for tissue diagnosis Protocol Number: N/A Title of Procedure:Percutaneous CT- Guided Biopsy Operative Findings: 1. Percutaneous image-guided biopsy of ~ 3 cm left lower lobe lung lesion.2. The follow-up chest x-rays show no evidence of pneumothorax Consent:The procedure, risks, indications and alternatives were explained. All questions were answered and informed consent was obtained. I have reviewed the history and physical dictated by the mid-level pr actitioner/fellow. Sedation/Anesthesia: Moderate sedation for pain control and anxiety was administered by a dedicated nurse under my supervision. There was continuous monitoring of oxygen saturation, heart rate and intermittent monitoring of blood pressure during the procedure. Medication given was midazolam and fentanyl. I was present for the administration of the medications indicated above.Procedure Events Event Event Time Sedation Start 04/19/2019 9:14 AM Sedation End 04/19/2019 9:40 AM Procedure in Detail: A time out was performed prior to the start of the procedure and the correct pat ient, procedure, presence of consent, site, and side were confirmed with all members of the team. With the patient in the prone position, the skin overlying the area of interest was prepped and draped in the usual sterile fashion. Lidocaine 1% was used for local anesthesia. Using a posterior approach under CT image-guidance, a 19 gauge needle was advanced down to the lesion in the left lung. An imagewas obtained and placed into the medical record. Samples were obtained for evaluation. Sampling: Cytology: A 22 gauge needle was used to obtain sample(s) for cytologic assessment. Total number of samples: 1 Core Biopsy: A 20 gauge needle used to obtain samples for surgical pathology evaluation. Total number of samples: 1 (see below) Biosentry: A Biosentry device was deployed at the conclusion of the procedure. Post-biopsy radiographs:1. The initial follow-up chest radiograph demonstrates: No pneumothorax.2. A subsequent follow-up chest radiograph was obtained 3 hours after the initial and demonstrates: No pneumothorax. Specimens Disposition: Diagnostic Biopsy: The biopsy samples were submitted to pathology. Additional Comments: Please note: The patient was pre-medicated with guaifenesin in the pre-procedure area due to a persistent cough that has now been present for many months. Despite this, the patient had a very severe coughing fit immediately after the first FNA samplewas obtained. I was able to obtain a single FNA and a single 20 gauge core biopsy. Due to the severity of the uncontrollable coughing, it was no longer safe to continue. I placed a Biosentry device, and removed the introducer needle. Estimated Blood Loss: Minimal Immediate Complications: Trace Pneumothorax on the immediate post-procedure CT. The two subsequent radiographs were satisfactory. Disposition: PACU Plan: No follow-up with Interventional Radiology required.MD Pickett CHEST XRAY 1 [id number] 18:21:14Date of Procedure: 04/19/19 Attending Physician: Vj Aparicio Psychotherapist Social Worker: None Pre Procedure Diagnosis: Personal history of malignant neoplasm of bladder; Lung mass Post Procedure Diagnosis: Unchanged Indication: Enlarging mass / nodule for tissue diagnosis Protocol Number: N/A Title of Procedure:Percutaneous CT- Guided Biopsy Operative Findings: 1. Percutaneous image-guided biopsy of ~ 3 cm left lower lobe lung lesion.2. The follow-up chest x-rays show no evidence of pneumothorax Consent:The procedure, risks, indications and alternatives were explained. All questions were answered and informed consent was obtained. I have reviewed the history and physical dictated by the mid-level pr actitioner/fellow. Sedation/Anesthesia: Moderate sedation for pain control and anxiety was administered by a dedicated nurse under my supervision. There was continuous monitoring of oxygen saturation, heart rate and intermittent monitoring of blood pressure during the procedure. Medication given was midazolam and fentanyl. I was present for the administration of the medications indicated above.Procedure Events Event Event Time Sedation Start 04/19/2019 9:14 AM Sedation End 04/19/2019 9:40 AM Procedure in Detail: A time out was performed prior to the start of the procedure and the correct pat ient, procedure, presence of consent, site, and side were confirmed with all members of the team. With the patient in the prone position, the skin overlying the area of interest was prepped and draped in the usual sterile fashion. Lidocaine 1% was used for local anesthesia. Using a posterior approach under CT image-guidance, a 19 gauge needle was advanced down to the lesion in the left lung. An imagewas obtained and placed into the medical record. Samples were obtained for evaluation. Sampling: Cytology: A 22 gauge needle was used to obtain sample(s) for cytologic assessment. Total number of samples: 1 Core Biopsy: A 20 gauge needle used to obtain samples for surgical pathology evaluation. Total number of samples: 1 (see below) Biosentry: A Biosentry device was deployed at the conclusion of the procedure. Post-biopsy radiographs:1. The initial follow-up chest radiograph demonstrates: No pneumothorax.2. A subsequent follow-up chest radiograph was obtained 3 hours after the initial and demonstrates: No pneumothorax. Specimens Disposition: Diagnostic Biopsy: The biopsy samples were submitted to pathology. Additional Comments: Please note: The patient was pre-medicated with guaifenesin in the pre-procedure area due to a persistent cough that has now been present for many months. Despite this, the patient had a very severe coughing fit immediately after the first FNA samplewas obtained. I was able to obtain a single FNA and a single 20 gauge core biopsy. Due to the severity of the uncontrollable coughing, it was no longer safe to continue. I placed a Biosentry device, and removed the introducer needle. Estimated Blood Loss: Minimal Immediate Complications: Trace Pneumothorax on the immediate post-procedure CT. The two subsequent radiographs were satisfactory. Disposition: PACU Plan: No follow-up with Interventional Radiology required.MD PickettTissue/FNA [id number] 20:16:53 Test Item Value Reference Range Interpretation Comments Final Report (test Propionibacterium acnes A code = 8488) Path Review (test The results have been A code = 8492) reviewed and electronically signed by Pathologist:Suad Polanco MD, PhD #[id number] Gram Stain Report No WBC's seen.No A (test code = 8487) organisms seen. YEFRI (test code = YEFRI) LLL Mass Lab Interpretation Abnormal (test code = 10792-6) MD PickettPlt [id number] 14:48:21 Test Item Value Reference Range Interpretation Comments Platelet count (test 185 K/uL 140-440 code = 6832) MPV (test code = 6282) 9.8 fL 4-10.4 YEFRI (test code = YEFRI) To coordinate with IR pre eval/procedure MD Dickson Respiratory Culture w/Gram [id number] 16:45:03 Test Item Value Reference Range Interpretation Comments Amended Final Report Moderate Haemophilus A (test code = 8491) parainfluenzaeBeta lactamase Negative by cefinase method...Normal site vannessa present.Normal vannessa consists of Alpha Hemolytic Streptococus species like and Rothia species likeand Neisseria species like and Coagulase Negative Staphylococcus. Path Review (test The results have been A code = 8492) reviewed and electronically signed by Pathologist:Myke Singh MD, PhD #[id number] Gram Stain Report Few WBC's seenNo A (test code = 90937-4) organisms seen. Lab Interpretation Abnormal (test code = 77716-1) MD PickettPULMONARY [id number] 14:26:35This procedure requires no interpretation from the radiologist.MD PickettCARDIOPULMONARY NOTE RESULTS 2019-04-09 14:17:22Casal, Jose Manuel Becker MD - 04/09/2019 9:17 AM CDTPatient Name: Nia OrtizGender: FemaleMRN: [id number]: [id number] Date No Time: 04/09/2019Proceduralist(s): JOSE MANUEL LAFLEUR MD, Andrea Kwon, RNProcedure Name: BronchoscopyIndications: Left lower lobe mass -DIAGNOSTIC EBUSMedications: General Anesthesia, Lidocaine 2% applied to the tracheobronchial tree 6 mLModerate Sedation: GAProcedure Description: Pre-Anesthesia Assessment: - ASA Grade Assessment: II - A patient with mild systemic disease. Procedure, risks, benefits, and alternatives were explained to the patient. All questions were answered and informed consent was documented as per institutional protocol. A history and physical were performed and updated in the preprocedure assessment record. Laboratory studies and radiographs were reviewed. A time-out was performed prior to the intervention. Following intravenous medications as per the record and topical anesthesia to the upper airway and tracheobronchial tree. The [id number] convex probe EBUS bronchoscope was introduced through the mouth, via laryngeal mask airway and advanced to the tracheobronchial tree of both lungs. The [id number] therapeutic video bronchoscopewas introduced through the mouth, via laryngeal mask airway and advanced to the tracheobronchial tree of both lungs. The patient tolerated the procedure well.Findings: The laryngeal mask airway is in good position. The vocal cords appear normal. The subglottic space is normal. The trachea is of normal caliber. The stepan is sharp.The tracheobronchial tree was examined to at least the first subsegmental level. Right-sided bronchial mucosa and anatomy are normal; there are no endobronchial lesions, and no secretions. Left sided tree showed inflammed/edematous mucosa causing SEVERE NARROWING of LLL basal segments (LB 7- 8, 9, and 0). The scope was withdrawn and replaced with the EBUS bronchoscope to accomplish the ultrasound examination. Lymph Nodes: Lymph Nodes: Lymph node sizing was performed viaendobronchial ultrasound. Sampling by transbronchial needle aspiration wasalso performed using an Olympus EBUS-TBNA needle. Rapid On-Site Evaluation (GODFREY) was also performed. - The LLL opacity was 26 mm by EBUS, [address] and PET scan was not available. The lesion was irregular, hypoechoic, heterogenous and had poorlydefined margins. Doppler showed abundant vessles going through this lesionthat looked more like a focal atelectasis. Six samples with the needle were obtained under direct visualizrtion with EBUS. Cytology was preliminarily non-diagnostic, showing only blood and bronchialcells. We then took 3 more sampled with an 18G needle, and these showed AGAIN just blood and bronchial cells. Bronchial wash and TBNA sent for culture as well.Complications: No immediate complicationsEstimated BloodLoss: Less than 5 cc.Post Procedure Diagnosis: - Left sided tree showed inflammed/edematous mucosa causing SEVERE NARROWING of LLL basal segments (LB 7-8, 9, and 0). This may be the cause for LLL opacity (atelectasis) - The rest of the airway examination was normal. - EBUS-TBNA of LLL opacity only showed NORMAL bronchial cells and blood. This was smapled under direct needle visualization with EBUS (see images). - The reason for the inflammation and bronchial narrowing is not clear (infection?), but this narrowing may be the reason for the atelecasis/LLL opacity.Recommendation: - Technically successful flexible bronchoscopy with endobronchial ultrasound-guided biopsies. The patient has remained stable and has been transferred in good condition to the post bronchoscopy recovery area, where patient will be observed until discharge criteria is met. Preliminary findings have been discussed with the patient and follow-up with the requesting service for the final pathological result has been recommended.Attending Participation: I personally performed the entire procedure without the assistance of a fellow, resident or surgical technology instructor.JOSE MANUEL LAFLEUR MD04/09/2019 10:33:43 AMThis report has been signed electronically.Number of Addenda: 0MD AndersonCT Chest without [id number] 18:05:40Interval increase of indeterminate left lower lobe masslike opacity with associated post obstructive changes concerning for primary lung malignancy/metastasis.Interface, Radiology Results In - 04/05/2019 1:07 PM CDTFULL RESULT:Examination: CT CHEST WO CONTRAST, 04/05/2019 12:10 PMClinical History: Other nonspecific abnormal finding of lung fieldIndication: monitoring of left lower infiltratesComparison: January 03, 2019Technique: CT of the chest was performed without intravenous contrast.Findings:Interval increase of left infrahilar masslike opacity associated with new distal airspace opacities. The tumor measures approximately 4.1 x 3.3 cm compared to 2.8 x 2.4 cm although accurate measurement is limited due to associated post obstructive changes. Stable tiny subpleural right upper lobe nodule (image 39, series 3).Subcentimeter mediastinal nodes but no evidence of adenopathy.Thoracic aorta and pulmonary artery with normal caliber. Atherosclerosis of the aorta and coronary arteries.Cardiac chambers are normal in size. No evidence of pleural or pericardial effusions.Liver cysts. The adrenal glandsare normal.No evidence of bony destructive lesions.IMPRESSION:Interval increase of indeterminate left lower lobe masslike opacity with associated post obstructive changes concerning for primary lung mal ignancy/metastasis.MD Pickett
[2020-03-02 20:38] LABS: Absolute Lymphocytes (CBC) 0.6 K/uL (0.7-4.9); Basophils % 0.7 % (0-1.3); Lymphocytes % 23.1 % (15.3-44.8); MPV 9.3 fL (7.6-11.3); RBC Red Blood Cell Count 3.04 M/uL (3.86-4.86)
[2020-03-02] MEDS ORDERED: NA CHLORIDE 0.9% 1,000 ML ONE ×2 (20:38→23:23)
[2020-03-02] MEDS ORDERED: ONDANSETRON 4 MG/2 ML VIAL ONE (20:38)
[2020-03-02 20:53] LABS: Albumin 2.8 g/dL (3.4-5.0); Bilirubin Direct 0.3 mg/dL (0-0.2); Bilirubin Total 0.8 mg/dL (0.2-1.0); Protein, Total 6.3 g/dL (6.4-8.2)
--- NOTE | 2020-03-02 21:08 | EDPHYS ---
Physician Documentation [facility] Name: Nia Ortiz Age: 64 yrs Sex: Female : 1955 Arrival Date: 03/02/2020 Time: 19:38 Bed 15 Private MD: ED Physician Lc Rosario HPI: 03/02 22:48 This 64 yrs old Female presents to ER via Wheelchair with complaints of tw4 Dehydration. 22:48 The patient presents to the emergency department with nausea, that is moderate, tw4 vomiting, 4 times since the onset of symptoms. Onset: The symptoms/episode began/occurred yesterday. Possible causes: unknown. The symptoms are aggravated by nothing. The symptoms are alleviated by nothing. The patient has not experienced similar symptoms in the past. Historical: - Allergies: 19:53 No Known Allergies; ls4 - Home Meds: 20:22 amoxicillin-pot clavulanate 875-125 mg Oral tab 1 tab every 12 hours [Active]; Atrovent vc 17 mcg Inhl 1 puff twice a day [Active]; Lovenox 120 mg/0.8 mL Sub-Q syrg once daily [Active]; furosemide 20 mg Oral tab 1 tab once daily [Active]; levofloxacin 500 mg Oral tab 1 tab once daily [Active]; Sodium Bicarbonate Oral 10 mL [Active]; AMB-CMPD 1 cap [Active]; benzonatate 100 mg oral cap 1 cap four times a day for Cough [Active]; Carafate 100 mg/mL Oral susp 10 mL 4 times per day [Active]; Co Q-10 200 mg oral cap daily [Active]; Tirosint 100 mcg Oral cap 1 cap once daily [Active]; methylcellulose/placebo [Active]; liothyronine 5 mcg Oral tab 1 tab once daily [Active]; magnesium oxide 400 mg oral cap twice a day [Active]; metoprolol succinate 12.5 mg oral Tb24 0.5 tab once daily [Active]; montelukast 10 mg oral tab 1 tab once daily [Active]; morphine 30 mg Oral CERP 1 cap 2 times per day [Active]; morphine 15 mg Oral tab 1 tab every 2 hours no more than six doses [Active]; ondansetron HCl 8 mg Oral tab 1 tab every 8 hours [Active]; pantoprazole 40 mg oral TbEC 1 tab once daily [Active]; Phos-NaK 280-160-250 mg oral pwpk daily [Active]; Rythmol 225 mg Oral tab 1 tab twice a day [Active]; polyethylene glycol 3350 17 gram oral pwpk 1 packet twice a day [Active]; prochlorperazine maleate 10 mg Oral tab 1 tab 4 times per day [Active]; rosuvastatin 10 mg oral tab 1 tab once daily [Active]; Senna Plus 8.6-50 mg oral tab 1 tabs twice a day [Active]; xyloxylin oral suspension 15 mL four times a day [Active]; - PMHx: 19:53 Growth to lung; Thyroid problem; ls4 20:06 Bladder cancer; spread to spine and femur; vc - PSHx: 19:53 lung biopsy; Bladder removed; ls4 - Immunization history:: Adult Immunizations up to date. - Social history:: Smoking status: Patient denies any tobacco usage or history of. ROS: 22:48 Constitutional: Negative for fever, chills, and weight loss, Eyes: Negative for injury, tw4 pain, redness, and discharge, Cardiovascular: Negative for chest pain, palpitations, and edema, Respiratory: Negative for shortness of breath, cough, wheezing, and pleuritic chest pain, Abdomen/GI: Negative for abdominal pain, nausea, vomiting, diarrhea, and constipation, Back: Negative for injury and pain, MS/Extremity: Negative for injury and deformity, Skin: Negative for injury, rash, and discoloration. 22:48 Neuro: Positive for altered mental status, Negative for dizziness, gait disturbance, headache, hearing loss, seizure activity, speech changes, syncope, near syncope, tingling, tinnitus, tremor. Exam: 22:48 Constitutional: This is a well developed, well nourished patient who is awake, alert, tw4 and in no acute distress. Head/Face: Normocephalic, atraumatic. Chest/axilla: Normal chest wall appearance and motion. Nontender with no deformity. No lesions are appreciated. Cardiovascular: Regular rate and rhythm with a normal S1 and S2. No gallops, murmurs, or rubs. Normal PMI, no JVD. No pulse deficits. Respiratory: Lungs have equal breath sounds bilaterally, clear to auscultation and percussion. No rales, rhonchi or wheezes noted. No increased work of breathing, no retractions or nasal flaring. Abdomen/GI: Soft, non-tender, with normal bowel sounds. No distension or tympany. No guarding or rebound. No evidence of tenderness throughout. Back: No spinal tenderness. No costovertebral tenderness. Full range of motion. MS/ Extremity: Pulses equal, no cyanosis. Neurovascular intact. Full, normal range of motion. Neuro: Awake and alert, GCS 15, oriented to person, place, time, and situation. Cranial nerves II-XII grossly intact. Motor strength 5/5 in all extremities. Sensory grossly intact. Cerebellar exam normal. Normal gait. Vital Signs: 20:01 BP 136 / 67; Pulse 97; Resp 17; Temp 99.1(O); Pulse Ox 98% on R/A; Weight 68.04 kg; vc Height 5 ft. 3 in. (160.02 cm); 23:05 BP 123 / 77; Pulse 124; Resp 16; Temp 98.6(O); Pulse Ox 96% on R/A; Pain 0/10; ls4 20:01 Body Mass Index 26.57 (68.04 kg, 160.02 cm) vc 23:[address] Rosario. NS bolus ordered. ls4 MDM: 19:54 Patient medically screened. tw4 22:49 Differential diagnosis: Nonspecific abd pain, gastritis. Data reviewed: vital signs, tw4 nurses notes. Data reviewed: lab test result(s), CBC, electrolytes, hepatic panel. Data interpreted: Pulse oximetry: Interpretation: normal. Counseling: I had a detailed discussion with the patient and/or guardian regarding: the historical points, exam findings, and any diagnostic results supporting the discharge/admit diagnosis. Physician consultation: Sidney Valerio MD was contacted at 21:00, regarding admission, to the medical/surgical unit. patient's condition, and will see patient in inpatient room. 03/02 19:43 Order name: Basic Metabolic Panel tw4 03/02 21:05 Interpretation: Normal except: K 3.0; GLUC 107; BUN 19; CRE 1.35; GFR 39. tw4 03/02 19:43 Order name: CBC with Diff tw4 03/02 21:05 Interpretation: Normal except: WBC 2.4; RBC 3.04; HGB 10.1; HCT 29.0; PLT 135; RDW tw4 15.6; LYMA 0.6; NEUT A 1.0; MN% 33.4. 03/02 19:43 Order name: Hepatic Function [facility] 03/02 21:05 Interpretation: Normal except: BILID 0.3; TP 6.3; ALB 2.8; A/G 0.8. [facility] 03/02 19:43 Order name: Lipase [facility] 03/02 21:05 Interpretation: Within normal limits: LIP 154. [facility] 03/02 20:26 Order name: Magnesium [facility] 03/02 20:26 Order name: Phosphorus [facility] 03/02 20:26 Order name: Calcium [facility] 03/02 20:41 Order name: Manual Differential EDMS 03/02 20:44 Order name: Urine Dipstick--Ancillary (enter results) [facility] 03/02 21:08 Order name: COVID-19 [facility] 03/02 21:09 Order name: CORONAVIRUS EDMS 03/02 21:19 Order name: Basic Metabolic Panel EDMS 03/02 21:19 Order name: Basic Metabolic Panel EDMS 03/02 21:19 Order name: CBC with Automated Diff EDMS 03/02 19:43 Order name: IV Saline Lock; Complete Time: 21:05 [facility] 03/02 19:43 Order name: Labs collected and sent; Complete Time: 21:05 [facility] 03/02 19:43 Order name: Urine Dipstick-Ancillary (obtain specimen); Complete Time: 20:54 [facility] 03/02 21:19 Order name: CBC with Automated Diff EDMS 03/02 22:53 Order name: SARS-COV-2 RT PCR; Complete Time: 23:11 EDMS 03/02 23:26 Order name: Phosphorus EDMS 03/02 23:26 Order name: Magnesium EDMS Administered Medications: 20:35 Drug: NS 0.9% 1000 ml Route: IV; Rate: 1 bolus; Site: right antecubital; ls4 20:35 Drug: Zofran (Ondansetron) 4 mg Route: IVP; Site: right antecubital; ls4 20:54 Follow up: Response: No adverse reaction ls4 21:30 Drug: Potassium Effervescent Tablet 50 mEq Route: PO; ls4 23:10 Drug: Metoprolol 2.5 mg Route: IVP; Site: right antecubital; ls4 23:16 Drug: Metoprolol 2.5 mg Route: IVP; Site: right antecubital; ls4 23:25 Drug: NS 0.9% 1000 ml Route: IV; Rate: 1 bolus; Site: right antecubital; ls4 23:25 Not Given (Other Intervention Used): ToPROL XL 12.5 mg PO once ls4 Disposition: 03/02/20 21:07 Hospitalization ordered by Sidney Valerio for Inpatient Admission. Preliminary diagnosis are Hypokalemia, Dehydration, Anemia in neoplastic disease, Thrombocytopenia, unspecified. - Bed requested for Telemetry/MedSurg (Inpatient). - Status is Inpatient Admission. oe - Condition is Stable. - Problem is an ongoing problem. - Symptoms are unchanged. Signatures: Dispatcher [employer] EDMS Mariah Ruiz RN RN lp1 Ananda Hodge Terrence, MD MD 4 Rach Reeves RN RN ls4 Monica Santoyo RN RN vc Corrections: (The following items were deleted from the chart) 20:06 19:53 PMHx: Bladder cancer; ls4 vc 22:55 21:07 Hospitalization Ordered by Sidney Valerio MD for Inpatient Admission. Preliminary lp1 diagnosis is Hypokalemia; Dehydration; Anemia in neoplastic disease; Thrombocytopenia, unspecified. Bed requested for Telemetry/MedSurg (Inpatient). Status is Inpatient Admission. Condition is Stable. Problem is an ongoing problem. Symptoms are unchanged. tw4 03/03 00:26 03/02 22:55 03/02/2020 21:07 Hospitalization Ordered by Sidney Valerio MD for Inpatient oe Admission. Preliminary diagnosis is Hypokalemia; Dehydration; Anemia in neoplastic disease; Thrombocytopenia, unspecified. Bed requested for Telemetry/MedSurg (Inpatient). Status is Inpatient Admission. Condition is Stable. Problem is an ongoing problem. Symptoms are unchanged. lp1
--- NOTE | 2020-03-02 21:08 | ER ---
Nurse's Notes [facility] Name: Nia Ortiz Age: 64 yrs Sex: Female : 1955 Arrival Date: 03/02/2020 Time: 19:38 Bed 15 Private MD: Diagnosis: Hypokalemia;Dehydration;Anemia in neoplastic disease;Thrombocytopenia, unspecified Presentation: 03/02 20:01 Chief complaint: Spouse and/or significant other states: "She was released from [facility] on with pneumonia, but today she's been a lot more fidgety, withdrawn, and weak. She's not speaking as much as she normally does.". Coronavirus screen: diarrhea, fatigue, nausea, vomiting. Client presents with at least one sign or symptom that may indicate coronavirus-19. Standard/surgical mask placed on the client. Provider contacted for isolation considerations. Ebola Screen: No symptoms or risks identified at this time. Initial Sepsis Screen: Does the patient meet any 2 criteria? HR > 90 bpm. No. Patient's initial sepsis screen is negative. Does the patient have a suspected source of infection? Yes: Other: pneumonia. Risk Assessment: Do you want to hurt yourself or someone else? Patient reports no desire to harm self or others. Onset of symptoms was March 02, 2020. 20:01 Method Of Arrival: Wheelchair vc 20:01 Acuity: ENIO 3 vc Triage Assessment: 21:10 General: Appears in no apparent distress. comfortable, Behavior is flat. ls4 21:10 Pain: Denies pain. Neuro: Level of Consciousness is awake, alert, obeys commands, ls4 Oriented to person, place, time, situation, Manager Radio are weak bilaterally Moves all extremities. Weakness Gait is unsteady, Speech is normal, Facial symmetry appears normal, Pupils are PERRLA, Intact Cardiovascular: Denies chest pain, diaphoresis, fatigue, nausea, palpitations, shortness of breath, syncope, vomiting, Capillary refill < 3 seconds Patient's skin is warm and dry. Rhythm is regular. Respiratory: Airway is patent Respiratory effort is even, unlabored, Respiratory pattern is regular. Historical: - Allergies: 19:53 No Known Allergies; ls4 - Home Meds: 20:22 amoxicillin-pot clavulanate 875-125 mg Oral tab 1 tab every 12 hours [Active]; Atrovent vc 17 mcg Inhl 1 puff twice a day [Active]; Lovenox 120 mg/0.8 mL Sub-Q syrg once daily [Active]; furosemide 20 mg Oral tab 1 tab once daily [Active]; levofloxacin 500 mg Oral tab 1 tab once daily [Active]; Sodium Bicarbonate Oral 10 mL [Active]; AMB-CMPD 1 cap [Active]; benzonatate 100 mg oral cap 1 cap four times a day for Cough [Active]; Carafate 100 mg/mL Oral susp 10 mL 4 times per day [Active]; Co Q-10 200 mg oral cap daily [Active]; Tirosint 100 mcg Oral cap 1 cap once daily [Active]; methylcellulose/placebo [Active]; liothyronine 5 mcg Oral tab 1 tab once daily [Active]; magnesium oxide 400 mg oral cap twice a day [Active]; metoprolol succinate 12.5 mg oral Tb24 0.5 tab once daily [Active]; montelukast 10 mg oral tab 1 tab once daily [Active]; morphine 30 mg Oral CERP 1 cap 2 times per day [Active]; morphine 15 mg Oral tab 1 tab every 2 hours no more than six doses [Active]; ondansetron HCl 8 mg Oral tab 1 tab every 8 hours [Active]; pantoprazole 40 mg oral TbEC 1 tab once daily [Active]; Phos-NaK 280-160-250 mg oral pwpk daily [Active]; Rythmol 225 mg Oral tab 1 tab twice a day [Active]; polyethylene glycol 3350 17 gram oral pwpk 1 packet twice a day [Active]; prochlorperazine maleate 10 mg Oral tab 1 tab 4 times per day [Active]; rosuvastatin 10 mg oral tab 1 tab once daily [Active]; Senna Plus 8.6-50 mg oral tab 1 tabs twice a day [Active]; xyloxylin oral suspension 15 mL four times a day [Active]; - PMHx: 19:53 Growth to lung; Thyroid problem; ls4 20:06 Bladder cancer; spread to spine and femur; vc - PSHx: 19:53 lung biopsy; Bladder removed; ls4 - Immunization history:: Adult Immunizations up to date. - Social history:: Smoking status: Patient denies any tobacco usage or history of. Screenin:51 Abuse screen: Denies threats or abuse. Denies injuries from another. Nutritional ls4 screening: No deficits noted. Tuberculosis screening: No symptoms or risk factors identified. Fall Risk None identified. Assessment: 23:30 Reassessment: assumed care from Rach Reeves RN. vc 23:35 General: Appears in no apparent distress. uncomfortable, slender, well groomed, vc Behavior is calm, drowsy, listless, quiet. Pain: Denies pain. Neuro: Level of Consciousness is awake, obeys commands, lethargic, listless, Oriented to person, place, situation. Cardiovascular: Capillary refill < 3 seconds Patient's skin is warm and dry. Respiratory: Airway is patent Respiratory effort is even, unlabored, Respiratory pattern is regular, symmetrical. GI: No signs and/or symptoms were reported involving the gastrointestinal system. : No signs and/or symptoms were reported regarding the genitourinary system. Derm: Skin is intact, Skin temperature is cool. 03/03 00:30 Reassessment: Patient appears in no apparent distress at this time. Patient and/or vc family updated on plan of care and expected duration. Pain level reassessed. Patient states symptoms have not improved. Vital Signs: 03/02 20:01 BP 136 / 67; Pulse 97; Resp 17; Temp 99.1(O); Pulse Ox 98% on R/A; Weight 68.04 kg; vc Height 5 ft. 3 in. (160.02 cm); 23:05 BP 123 / 77; Pulse 124; Resp 16; Temp 98.6(O); Pulse Ox 96% on R/A; Pain 0/10; ls4 20:01 Body Mass Index 26.57 (68.04 kg, 160.02 cm) vc 23:[address] Rosario. NS bolus ordered. ls4 ED Course: 19:38 Patient arrived in ED. ag3 19:43 Lc Rosario MD is Attending Physician. tw4 19:51 Rach Reeves, RN is Primary Nurse. ls4 19:51 Patient has correct armband on for positive identification. Bed in low position. Call ls4 light in reach. Side rails up X2. cream ripener on. Pulse ox on. NIBP on. 19:51 No provider procedures requiring assistance completed. ls4 20:04 Triage completed. vc 21:06 Sidney Valerio MD is Hospitalizing Provider. tw4 21:07 Arm band placed on. ls4 03/03 00:26 Patient admitted, IV remains in place. vc Administered Medications: 03/02 20:35 Drug: NS 0.9% 1000 ml Route: IV; Rate: 1 bolus; Site: right antecubital; ls4 20:35 Drug: Zofran (Ondansetron) 4 mg Route: IVP; Site: right antecubital; ls4 20:54 Follow up: Response: No adverse reaction ls4 21:30 Drug: Potassium Effervescent Tablet 50 mEq Route: PO; ls4 23:10 Drug: Metoprolol 2.5 mg Route: IVP; Site: right antecubital; ls4 23:16 Drug: Metoprolol 2.5 mg Route: IVP; Site: right antecubital; ls4 23:25 Drug: NS 0.9% 1000 ml Route: IV; Rate: 1 bolus; Site: right antecubital; ls4 23:25 Not Given (Other Intervention Used): ToPROL XL 12.5 mg PO once ls4 Outcome: 21:07 Decision to Hospitalize by Provider. tw4 03/03 00:26 Patient left the ED. oe 00:26 Admitted to Med/surg accompanied by tech, via stretcher, with chart. vc 00:26 Condition: good 00:26 Instructed on the need for admit. Signatures: Ananda Hodge Terrence, MD MD tw4 Meme Hernandez ag3 Rach Reeves RN RN ls4 Monica Santoyo RN RN vc Corrections: (The following items were deleted from the chart) 03/02 20:06 19:53 PMHx: Bladder cancer; ls4 vc 23:09 23:05 BP 123 / 77; Pulse 124bpm; Resp 16bpm; Pulse Ox 96% RA; Temp 98.6F Oral; Pain ls4 0/10; ls4
[2020-03-02 21:14] LABS: Anisocytosis SLIGHT; Blood Morphology Comment NOTED (NOT SEEN); Platelet Estimate DECR; Polychromasia SLIGHT
[2020-03-02] MEDS ORDERED: ACETAMINOPHEN 500 MG TAB PO PRN (21:18)
[2020-03-02 21:21] LABS: Urine Blood 1+ (NEG); Urine Glucose NEGATIVE (NEG); Urine Protein 2+ (NEG)
[2020-03-02] MEDS ORDERED: POTASSIUM 25 MEQ EFFERV TAB ONE (21:30)
[2020-03-02 23:26] LABS: Phosphorus 2.1 mg/dL (2.5-4.9)
[2020-03-02] MEDS ORDERED: METOPROLOL TARTRATE 5 MG/5 ML INJ IV ONE (23:27)
[2020-03-03 00:40] VITALS: BMI 27.2
[2020-03-03] MEDS ORDERED: ONDANSETRON 4 MG/2 ML VIAL IV ONE (05:34)
[2020-03-03 05:55] LABS: Absolute Lymphocytes (CBC) 0.4 K/uL (0.7-4.9); Basophils % 0.6 % (0-1.3); Lymphocytes % 17.8 % (15.3-44.8); MPV 9.6 fL (7.6-11.3); RBC Red Blood Cell Count 2.68 M/uL (3.86-4.86)
[2020-03-03] MEDS ORDERED: ONDANSETRON 4 MG/2 ML VIAL ONE (05:58)
[2020-03-03 06:00] LABS: Potassium 3.3 mmol/L (3.5-5.1)
[2020-03-03] MEDS ORDERED: MORPHINE 15 MG IR TAB PO PRN (06:16)
[2020-03-03] MEDS ORDERED: MORPHINE *EXTENDED RELEASE* 60 MG TAB PO PRN (06:16)
[2020-03-03 06:35] LABS: Magnesium 1.9 mg/dL (1.8-2.4)
[2020-03-03] MEDS: D5 0.9 NS 1,000 ML IV SCH ×3 (06:43→22:00)
[2020-03-03] MEDS ORDERED: POTASSIUM 25 MEQ EFFERV TAB PO ONE (09:00)
[2020-03-03] MEDS ORDERED: METOPROLOL XL 25 MG TAB PO SCH (09:00)
[2020-03-03] MEDS: POTASSIUM CL SA 10 MEQ TAB PO ONE ×2 (09:02→09:11)
[2020-03-03] MEDS: Enoxaparin 120 MG/0.8 ML SYR SQ SCH (09:03)
[2020-03-03] MEDS: PROPAFENONE HCL 150 MG TAB PO SCH ×2 (09:04→21:18)
[2020-03-03] MEDS: PANTOPRAZOLE 40MG TABLET PO SCH (09:04)
[2020-03-03] MEDS: POTASS/SODIUM PHOSPHATE 1 PKT POWD.PACK PO SCH ×2 (09:05→10:00)
[2020-03-03] MEDS ORDERED: POTASSIUM CL SA 10 MEQ TAB PO ONE (09:17)
[2020-03-03] MEDS: POTASSIUM PHOS IN 0.9 % NACL 15 MMOL/250 ML BAG IV ONE ×2 (09:19→14:20)
[2020-03-03 09:53] LABS: Anisocytosis 1+; Blood Morphology Comment NOTED (NOT SEEN); Platelet Estimate DECR; Polychromasia 1+
[2020-03-03] MEDS: KCL 20 MEQ/100 mL IVPB 20 MEQ/100 ML BAG IV SCH ×2 (10:38→12:32)
[2020-03-03] MEDS: ONDANSETRON 4 MG/2 ML VIAL IV PRN (17:33)
[2020-03-03] MEDS: DIPHENOX/ATROP SULF 1 TAB PO PRN (17:33)
[2020-03-03] MEDS ORDERED: LOPERAMIDE HCL 2 MG CAPSULE PO STA (21:53)
[2020-03-03] MEDS ORDERED: KCL 20 MEQ/100 mL IVPB 20 MEQ/100 ML BAG IV SCH (23:00)
[2020-03-04 04:32] LABS: Magnesium 1.8 mg/dL (1.8-2.4); Phosphorus 2.4 mg/dL (2.5-4.9); Potassium 3.4 mmol/L (3.5-5.1)
--- NOTE | 2020-03-04 05:04 | HP ---
Date of Admission: 03/02/2020 Chief Complaint: Vomiting, diarrhea, confusion, feeling weak. 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 The patient's contacted me yesterday, and when I talked to him, he informed me that the patient was in hospital at [facility] last week and s he was now there for 2 days and discharged home last week on with oral antibiotics. She act ually had vomiting, diarrhea while she was in the hospital. This problem of vomiting, diarrhea tony nued and got worse. She came back home from the hospital. also reported that the patient wa s feeling very weak and somewhat confused. also reported that there was some mention while i n the hospital regarding hospice care by her oncologist, Dr. Snyder. After I talked to the patient 's , it was advised to him that he should bring her to emergency room. The patient did not wa nt to go to [facility] that is why they wanted to bring her over to our hospital. After she was evaluat ed in the ER, she was admitted to the hospital under my service. I did call the ER physician after t alking to the patient's yesterday and details were discussed with ER physician and workup don e in the emergency room, results reviewed last night, and the patient was admitted to the hospital. This morning when I saw her, she was awake, alert, recognized me, answered questions appropriately. was at bedside with her. The patient has been having significant diarrhea problem and has lo st lot of weight lately. Allergies: NO KNOWN ALLERGIES EXCEPT ACCORDING TO OFFICE CHART SHE IS LISTED ALLERGIC TO IODINE C AUSING RASH. Medications: List reviewed. Review of Systems: GI: As mentioned above. Constitutional: As mentioned above. All other systems reviewed and negative. Past Medical History: Allergic rhinitis, hypothyroidism, asthma, hypertension, hyperlipidemia, parox ysmal atrial fibrillation, gastroesophageal reflux disease, constipation, bladder cancer with metasta tic disease to bones and lungs, superficial thrombophlebitis involving the left cephalic vein in 2017, and the patient says that during her recent hospital admission at [facility], she was told to have old blood clot in her lung and she was started on Lovenox injection and was sent home with Lo venox injection as well. Past Surgical History: Significant for removal of bladder, uterus, and ovary due to bladder cancer, surgery done May 05, 2018. Family History: Father had colon cancer and diabetes. Mother; asthma and heart disease. Social History: Negative for smoking. Use of alcohol occasional. Physical Examination: Vital Signs: Height 5 feet 8 inches, weight 179 pounds, temperature 97.8, pulse 75, respiratory rate 18, blood pressure 127/67, oxygen saturation 97%. General: Awake, alert, oriented, not in distress. HEENT: Head atraumatic, normocephalic. Conjunctivae nonerythematous. Sclerae white. Mouth, no thr ush or edema noted. Ears/Nose, no mass, lesion, discharge noted. Neck: Supple. No JVD, lymph nodes, bruit, thyromegaly noted. Lungs: Bilateral good equal air entry. Clear to auscultation. No rhonchi. No rales. Heart: Normal heart sounds, no murmur or gallop. Abdomen: Soft, bowel sounds normal. No guarding, rigidity, tenderness, mass, hepatosplenomegaly, dis tention, or bruit noted. Extremities: No leg edema. No calf tenderness. Skin: No rash, ulcer, cellulitis. Lymphatics: No lymph node enlargement in neck, supraclavicular, infraclavicular region. Neuro: No focal neurological deficit. Chest: Unremarkable. External Genitalia: Deferred. Rectal: Deferred. Laboratory Data: Yesterday white count 2.4, hemoglobin 10.41, platelets 135. This morning, white co unt 2.1, hemoglobin 8.9, platelets 120. Yesterday sodium 138, potassium 3, chloride 104, bicarb 22, BUN 19, creatinine 1.35, glucose 107. Liver function tests unremarkable. Lipase 154. This morning sodium 142, potassium 3.3, chloride 110, bicarb 21, BUN 15, creatinine 1.13 glucose 90, phosphorus 2, magnesium . Urinalysis; 1+ blood, 2+ protein. COVID-19 test was negative. Impression: 1.Volume depletion. 2.Acute kidney injury. 3.Hypokalemia. 4.Hypophosphatemia. 5.Generalized weakness. 6.Debility. 7.Diarrhea. 8.Rule out Clostridium difficile colitis. 9.Bladder cancer with metastatic disease to lung and bones. 10.Hypertension. 11.Paroxysmal atrial fibrillation. 12.Hyperlipidemia. 13.Hypothyroidism. Plan: Admit the patient to hospital for further evaluation and management of this problem. The deya ent is appropriate for inpatient and is expected to spend 2 midnights in the hospital. We will tony nue IV fluid per order. We will follow up on stool test result, antidiarrheal medication, Imodium wa s ordered which did not help, so during the course of day today, Lomotil was added. After I saw her this morning, I did contact her oncologist, Dr. Snyder, at [facility], and he informed me that the patient was noted to have old blood clot in her lung that did not happen during this recent hospital admission but did happen before, but in any case, she was started on Lovenox, and he informed me mae t Lovenox can be discontinued if the patient goes on hospice care. He also told me that the patient has failed chemotherapy and immunotherapy and she is appropriate patient for hospice care. This morn ing when I talked to patient and her , they both were agreeable to go on hospice, so after I d iscussed with Dr. Snyder, Social Service, was consulted to help arrange for hospice care, and if th at can be arranged, hopefully we can plan to discharge her, maybe by tomorrow. Plan of treatment was discussed with her. MARTINA/KAREN Voice ID: [id number]
[2020-03-04] MEDS: ONDANSETRON 4 MG/2 ML VIAL IV PRN ×4 (05:49→15:58)
[2020-03-04] MEDS: KCL 20 MEQ/100 mL IVPB 20 MEQ/100 ML BAG IV SCH ×2 (06:05→09:42)
[2020-03-04] MEDS: DIPHENOX/ATROP SULF 1 TAB PO PRN (06:09)
[2020-03-04] MEDS ORDERED: LEVOTHYROXINE SOD 0.1 MG TAB PO SCH (06:30)
[2020-03-04] MEDS: PROPAFENONE HCL 150 MG TAB PO SCH (08:11)
[2020-03-04] MEDS: PANTOPRAZOLE 40MG TABLET PO SCH (08:12)
[2020-03-04] MEDS: Enoxaparin 120 MG/0.8 ML SYR SQ SCH (08:13)
[2020-03-04] MEDS ORDERED: MAGNESIUM SULFATE 1 gm IVPB 1 GM/100 ML BAG IV ONE (09:00)
[2020-03-04] MEDS ORDERED: POTASSIUM PHOS IN 0.9 % NACL 15 MMOL/250 ML BAG IV ONE (09:00)
[2020-03-04 11:02] LABS: C.diff Antigen/Toxin Ag neg : Tox neg (NEG : NEG)
[2020-03-04 11:26] VITALS: O2SAT 98
[2020-03-04 12:15] VITALS: BP 116/56; TEMP 97.3
[2020-03-04] MEDS ORDERED: METOPROLOL XL 25 MG TAB PO SCH (21:00)
--- NOTE | 2020-03-05 01:43 | DS ---
Date of Discharge: 03/04/2020 Disposition: The patient was discharged to go home with hospice care. Physical Examination: HEENT: Unremarkable. Lungs: Clear to auscultation. Heart: Sounds normal. Abdomen: Soft. Bowel sounds normal. No guarding, rigidity, tenderness, or distention. Extremities: No leg edema. Laboratory Data: Upon admission, white count 2.4, hemoglobin 10.1, platelets 135. Yesterday, white count 2.1, hemoglobin 8.9, platelets . Last chemistry today, sodium 144, potassium 3.4, ch loride 116, bicarb 19, BUN 14, creatinine 1.20, glucose 108, phosphorus 2.4, magnesium 1.8. Upon adm ission, potassium was 3, BUN 19, creatinine 1.35. Hospital Course: A 64-year-old female patient, admitted to the hospital with complaints of vomiting, diarrhea, confusion, and feeling weak. Please see dictated H and P for more information. After the patient was evaluated in the emergency room, the patient was admitted to the hospital with volume de pletion and acute kidney injury. Her electrolytes were abnormal and electrolyte replacement protocol was used to try to correct this electrolyte problem. IV fluid was given. Her volume depletion prob coty and acute kidney injury problem resolved with IV fluid. She had a lot of diarrhea. Initially, s he was given Imodium and she did not respond to that. Subsequently, we changed it to Lomotil and she did not respond to that also and we had to add Imodium on top of Lomotil and then finally after arou nd 10 o'clock last night, her diarrhea stopped. Appetite remains poor. She has lost significant reynaldo unt of weight. She has bladder cancer with metastatic disease to lung and bones and she has been und er care of [facility] oncologist, Dr. Snyder, who was contacted yesterday. Details were discussed with him and he informed me that the patient has failed chemotherapy and immunotherapy, and currentl y, she was on medication that she is not responding to that also. So, at this point Dr. Snyder has recommended hospice care and I did discuss all these details with the patient and the patient's husb and and they were agreeable to go home with hospice care. The Social Service was consulted, and afte r all arrangements completed, today she was discharged to go home with hospice care. Her hospice prem gnosis is bladder cancer with metastatic disease to lung and bones and life expectancy is less than 6 months if disease continues to progress the way it is expected. All these details were discussed wi th the patient and her . Dr. Snyder also informed me that there is no reason and no need fo r the patient to continue Lovenox injection upon discharge when she goes home with the hospice care a nd I will discontinue Lovenox. I have also advised her to discontinue her cholesterol medication, wh ich is rosuvastatin and also not to take any antibiotics that she was taking prior to her admission t o the hospital as those antibiotics definitely could have contributed to her diarrhea problem. Her s tool for C. diff came back negative. Her COVID-19 test came back negative. Final Diagnoses: 1.Volume depletion. 2.Acute kidney injury. 3.Hypokalemia. 4.Hypophosphatemia. 5.Generalized weakness. 6.Debility. 7.Diarrhea. 8.Bladder cancer with metastatic disease to lung and bones. 9.Hypertension. 10.Paroxysmal atrial fibrillation. 11.Hyperlipidemia. 12.Hypothyroidism. MARTINA/MODL Voice ID: [id number] Report ID: [id number]
== END 2020-03-04 16:15 | disposition hospice, home (50) | DRG 683 ==
LOC: ER 19:35 → ERHOLD 21:21 → 2ND 23:35
PROVIDERS: ADMIT Internal Medicine; ATTEND Internal Medicine
DX: N17.9 Acute kidney failure, unspecified (principal); C79.51 Secondary malignant neoplasm of bone; C78.00 Secondary malignant neoplasm of unspecified lung; E86.9 Volume depletion, unspecified; I10 Essential (primary) hypertension; E78.5 Hyperlipidemia, unspecified; K21.9 Gastro-esophageal reflux disease without esophagitis; K59.00 Constipation, unspecified; I48.0 Paroxysmal atrial fibrillation; E03.9 Hypothyroidism, unspecified; C67.9 Malignant neoplasm of bladder, unspecified; E87.6 Hypokalemia; E83.39 Other disorders of phosphorus metabolism; R53.1 Weakness; R53.81 Other malaise; R19.7 Diarrhea, unspecified; Z91.09 Other allergy status, other than to drugs and biological substances; Z11.59 Encounter for screening for other viral diseases
CPT/HCPCS: 36415; 80048; 80076; 81003; 83690; 83735; 84100; 84132; 85025; 87045; 87046; 87324; 87449; 96374; 96375; 99285; J1650; J2405; J3475; J3480; J7030; J7042; U0003